=== PATIENT | female | born 1940 | race Caucasian/White ===

== ENCOUNTER 2025-06-26 09:28 | Inpatient (IN) | payer MEDICARE, SELFPAY ==
--- NOTE | ~2025-06-26 | NM_ITS ---
CLINICAL HISTORY: Pleuritic chest pain post-op --- Additional Notes or Special Instructions: Tachy, no hypoxia NUCLEAR MEDICINE LUNG PERFUSION IMAGING Comparison: CR/SR - XR CHEST 1 VIEW - 06/28/25 10:06 EDT Findings: Perfusion: 2.7mCi Tc 99m MAA Perfusion only imaging was performed. Heterogeneous distribution of isotope in both lungs with no segmental perfusion defect. Review of the above-mentioned chest radiograph demonstrates no significant pleural or pulmonary parenchymal abnormality. Impression: 1. No perfusion-chest radiographic mismatch to suggest possible pulmonary embolism. This document has been electronically signed by: Elvia Mcginnis DO on 06/28/2025 18:41:03
--- NOTE | ~2025-06-26 | CT_ITS ---
EXAMINATION: CT CERVICAL SPINE WITHOUT IV CONTRAST HISTORY: fall, collared. TECHNIQUE: Helical CT of the cervical spine was performed per standard departmental protocol. Coronal and sagittal reformatted images were also evaluated. One or more of the following techniques was used for dose reduction: Automated exposure control, adjustment of the mA and/or kV according to patient size, use of iterative reconstruction technique. DLP: 234 mGy-cm COMPARISON: There are no prior studies available for comparison. FINDINGS: CERVICAL SPINE: The bones are osteopenic. The vertebral bodies maintain normal height and alignment without evidence of fracture or subluxation. There is diffuse moderate degenerative disc disease with disc space narrowing and osteophyte formation. Evaluation for disc pathology is limited by lack of intrathecal contrast material, however. BRAIN: The visualized portion of the brain is unremarkable. SINUSES: There is fluid in the right sphenoid sinus. The visualized mastoid air cells and middle ear cavities are unremarkable. LUNG APICES: There is biapical pleural and parenchymal scarring. SOFT TISSUES: There is calcification of the internal carotid arteries. CT/CT cervical spine wo IV con IMPRESSION: No evidence of fracture or malalignment of the cervical spine. Degenerative changes as described. Electronically signed by: Jaime Worrell MD 06/26/2025 10:48 AM EDT
--- NOTE | ~2025-06-26 | XR_ITS ---
EXAMINATION: XR CHEST CLINICAL INFORMATION: Pleuritic chest pain with deep breathing COMPARISON: 06/26/2025. TECHNIQUE: Frontal view of the chest was obtained. FINDINGS: Mild cardiac enlargement suspected. Retrocardiac hiatus hernia present, moderate sized. Mediastinal and hilar contours appear normal. Aortic mural calcification. The lungs are clear bilaterally. Minimal scarring in the left upper lung distribution. No pneumothorax or effusion. No focal osseous or soft tissue abnormality. There is severe left convex thoracolumbar scoliosis with associated spondylosis. Degenerative changes in both shoulder joints. XR/XR chest 1V IMPRESSION: No active pulmonary disease. No interval change from 06/26/2025. Electronically signed by: Landry Saini MD 06/28/2025 10:29 AM EDT
--- NOTE | ~2025-06-26 | XR_ITS ---
EXAMINATION: XR CHEST CLINICAL INFORMATION: Fall COMPARISON: None available. TECHNIQUE: Frontal view of the chest was obtained. FINDINGS: Pulmonary reticular pattern. No gross consolidation, pleural effusion or pneumothorax. Bilateral apical lung scarring. No hyperinflation. Cardiomediastinal silhouette appears mildly prominent. Calcified plaque thoracic aorta with tortuosity. S-shaped curvature of the thoracolumbar spine. Osteopenia versus osteoporosis. Old traumatic deformity right clavicle. Degenerative changes in both shoulders. XR/XR chest 1V IMPRESSION: Chronic interstitial lung disease with questionable mild interstitial lung edema. Scoliosis, thoracolumbar spine. Osteopenia versus osteoporosis. Electronically signed by: Jose Taveras MD 06/26/2025 10:40 AM EDT
--- NOTE | ~2025-06-26 | FL_ITS ---
EXAMINATION: FL GUIDANCE ONLY HISTORY: fracture left hip COMPARISON: Correlation is made with plain films of the left hip dated 06/26/2025. TECHNIQUE: Fluoroscopy time: 0.6 minutes. Cumulative Dose: 6.81 mGy. DAP: 0.118 mGym2 Images: 4. FINDINGS: Fluoroscopic spot films of the left hip demonstrate internal fixation of the previously seen intertrochanteric fracture with a compression screw and intramedullary [place]. FL/FL guidance in OR IMPRESSION: Fluoroscopy during procedure. Please see procedure report for additional information. Electronically signed by: Jaime Worrell MD 06/28/2025 06:55 AM EDT
--- NOTE | ~2025-06-26 | XR_ITS ---
EXAMINATION: XR HIP, LEFT CLINICAL INFORMATION: fall, pain, external rotation COMPARISON: None available. TECHNIQUE: AP and cross lateral view of the left hip. FINDINGS: Comminuted cortical disruption in the inspiratory region of the left femur. The left femoral head is well-seated in the left acetabulum. Probable old traumatic deformities in the inferior pubic rami, bilaterally. Mild degenerative changes in the right coxofemoral joint. Osteopenia versus osteoporosis. Spondylosis, L4-5 and L5-S1. Vascular calcifications. XR/XR hip LT w PEL1V IMPRESSION: Acute comminuted intratrochanteric fracture, left femur. Electronically signed by: Jose Taveras MD 06/26/2025 10:41 AM EDT
--- NOTE | ~2025-06-26 | CT_ITS ---
EXAMINATION: CT HEAD WITHOUT IV CONTRAST HISTORY: fall, collared. TECHNIQUE: Unenhanced helical CT of the head was performed per standard departmental protocol. Coronal and sagittal reformats of the head were also evaluated. One or more of the following techniques was used for dose reduction: Automated exposure control, adjustment of the mA and/or kV according to patient size, use of iterative reconstruction technique. DLP: 624 mGy-cm COMPARISON: There are no prior studies available for comparison. FINDINGS: BRAIN: There is diffuse prominence of the ventricular system and cortical sulci, consistent with atrophy. Periventricular and subcortical white matter hypodensities are noted which are nonspecific, but often seen in the setting of small vessel ischemic disease. 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 There is no mass effect or midline shift. No intra- or extra-axial fluid collections are identified. SINUSES: There is fluid in the right sphenoid sinus. The mastoid air cells and middle ear cavities are well pneumatized. ORBITS: The visualized orbits are unremarkable. BONES/SOFT TISSUES: The extracranial soft tissues are unremarkable. The calvarium is intact. No suspicious lytic or sclerotic lesions. CT/CT head/brain wo IV con IMPRESSION: No evidence of intracranial hemorrhage or skull fracture. Electronically signed by: Jaime Worrell MD 06/26/2025 10:44 AM EDT
--- NOTE | 2025-06-26 09:34 | ED_ITS ---
HPI - General Adult General Chief complaint: Fall Stated complaint: FALL @HOME,-HS,-LOC,LLE PAIN,-THINNERS PER EMS Time Seen by Provider: 06/26/25 09:33 Source: patient, EMS, RN notes reviewed and old records reviewed Mode of arrival: EMS Limitations: no limitations History of Present Illness ED Provider: Alfredito HPI narrative: Patient is an 84-year-old female with history of HTN on metoprolol presenting to the emergency department with complaint of left hip pain after a fall at home. Patient states that her leg became caught in a chair leg causing her to fall onto her left side. Patient denies head strike or loss of consciousness. She denies feeling dizzy or lightheaded prior to fall. EMS placed patient in a c- collar prior to arrival and notes that left leg was externally rotated prior to placing a pillow under her left leg. She is not anticoagulated. She denies headache, vision changes, neck or back pain, chest pain or dyspnea. MD complaint: hip pain Related Data Allergies Allergy/AdvReac Type Severity Reaction Status Date / Time Iodinated Contrast Media (IV Allergy Unknown ANAPHYLAXIS Verified 06/26/25 09:39 CONTRAST) Sulfa (Sulfonamide Allergy Unknown RASH Verified 06/26/25 09:39 Antibiotics) (SULFA (SULFONAMIDE ANTIBIOTICS)) Review of Systems 2 Review of Systems: As per HPI Yes all other systems are reviewed and are negative Constitutional: Constitutional: Reports as per HPI PENDING SALE TO [facility] Social History Social History Advance Directives: Yes Advance Directives Information Provided: Yes Advance Directives on File: No Physical Exam ED Vital Signs: Vital Signs - 24 hr 06/26/25 09:35 06/26/25 09:50 06/26/25 10:05 Temperature 97.9 F Pulse Rate 81 79 79 Respiratory Rate 18 15 15 Blood Pressure 152/70 H 131/63 141/64 H Pulse Oximetry 97 96 96 Oxygen Delivery Method Room Air Room Air Room Air 06/26/25 10:06 Temperature Pulse Rate Respiratory Rate 18 Blood Pressure Pulse Oximetry Oxygen Delivery Method BMI result Body Mass Index 21.5 Vital signs have been reviewed and appear to be correct. Blood pressure normal. Heart rate normal. Respiratory rate normal. Temperature normal. Oxygen saturation normal. Const General: cooperative, healthy appearing and no acute distress Orientation/consciousness: oriented to person, oriented to place, oriented to time and patient oriented x3 Limitations: no limitations HENMT Head: Yes normocephalic and Yes atraumatic Ears: external ears normal General nose exam: Normal external nose present Face and sinus: Yes face symmetric Mouth: oropharynx normal and moist mucous membranes Throat: Yes uvula midline Eyes Pupils: Equal, round and reactive pupils present Neck Neck: Yes normal visual inspection and Yes supple Resp Effort & Inspection: normal respiratory effort and able to speak in complete sentences Auscultation: clear to auscultation bilaterally Cardio Rate: regular rate Rhythm: regular rhythm Heart sounds: S1 normal heart sound present and S2 normal heart sound present GI Palpation (GI): Soft to palpation and nontender Auscultation: normoactive bowel sounds General: Yes no CVA tenderness Back/Spine/Pelvis Back: no CVA tenderness Cervical Spine: collar present Thoracic/Lumbar Spine: No thoracic spinal tenderness and No lumbar spinal tenderness Pelvis: pain with anterior-posterior compression and pain with lateral compression Skin General skin exam: elasticity normal and turgor normal Neuro General: oriented to person, oriented to place, oriented to time, patient oriented x3, moves all extremities, no focal motor deficits and CN's II-XI intact bilaterally Cranial nerves: Yes Equal, round and reactive pupils present Cognition (Neuro): normal cognition Extrem General: Yes full ROM, Yes no pedal edema and Yes no calf tenderness Left lower extremity: hip/thigh Details: tenderness Location: of the hip Location: laterally and foot Details: vascular exam Details: dorsalis pedis pulse present, posterior tibial pulse present and normal capillary refill Psych Mental Status: mental status grossly normal Affect: normal affect Thought process: Normal thought process present Medications Administered Discontinued Medications Generic Name Dose Route Start Last Admin Trade Name Carolyn PRN Reason Stop Dose Admin Hydromorphone HCl 0.5 mg 06/26/25 09:36 06/26/25 10:06 Hydromorphone Hcl 0.5 Mg/0.5 Ml Syringe IVPUSH 06/26/25 09:37 0.5 mg ONCE ONE Administration Protocol Medical Decision Making Medical Decision Making [facility] Narrative: Patient is an 84-year-old female presenting to the emergency department with complaint of left hip pain after a fall at home. On exam patient is awake, A+Ox3, VS WNL, afebrile, normal neurological exam without focal deficits, physical exam findings as above. Given reported symptoms and physical exam findings, initial differential includes but is not limited to left hip contusion versus fracture, ICH, skull or cervical vertebral fracture or subluxation. Labs unremarkable. CT head and c-spine are without evidence of ICH, skull or cervical vertebral fracture or subluxation. X-ray left hip notable for intertrochanteric fracture. Chest x-ray notable for chronic interstitial lung disease. My interpretation is in agreement with the radiologist's interpretation. Patient reports decreased pain after IV dilaudid. Case discussed with dion Agee who recommends admission to medicine. Admission to medicine accepted by Anupam Fitzgerald NP. Differential Diagnosis Differential Diagnoses: The differential diagnosis associated with the presentation includes as per [facility] Admission/Observation Consideration of admission/observation: Escalation of care including admission/observation considered Consult Healthcare Provider Management of the patient was discussed with: Blockmason (dion Agee) Lab Data [facility] Lab Attestation statement: I reviewed the patient's lab results. As per [facility] 06/26/25 10:04 06/26/25 10:04 Labs: Lab Results 06/26/25 Range/Units 10:04 WBC 5.6 (4.8-10.8) X10*3/uL RBC 4.73 (4.20-5.50) X10*6/uL Hgb 13.1 (12.0-16.0) g/dl Hct 41.3 (37.0-47.0) % MCV 87.3 (80.0-98.0) fL MCH 27.7 (27.0-33.0) pg MCHC 31.7 (31.0-35.0) g/dl RDW 15.0 (11.0-16.0) % Plt Count 314 (160-400) X10*3/uL MPV 9.6 (9.4-12.3) fL Immature Gran % (Auto) 0.4 (0.0-0.4) % Neut % (Auto) 64.5 (45-73) % Lymph % (Auto) 22.5 (20-40) % [place] % (Auto) 9.8 (2-11) % Eos % (Auto) 2.1 (0-4) % Baso % (Auto) 0.7 (0-2) % Lymph # (Auto) 1.3 (1.2-4.9) X10*3/uL [place] # (Auto) 0.6 (0.1-1.2) X10*3/uL Eos # (Auto) 0.1 (0.0-0.4) X10*3/uL Baso # (Auto) 0.0 (0.0-0.2) X10*3/uL Abs Immat Gran (auto) 0.02 (0.00-0.03) X10*3/uL Absolute Neuts (auto) 3.6 (2.0-8.3) x10*3/uL Absolute Nucleated RBC 0.000 (0.0-0.012) X10*3/uL Nucleated RBC % (auto) 0.0 (0.0-0.2) /100WBC Sodium 141 (135-145) mmol/L Potassium 3.4 (3.3-5.1) mmol/L Chloride 104 (96-108) mmol/L Carbon Dioxide 25 (22-29) mmol/L Anion Gap 15 (12-20) BUN 13 (9-16) mg/dL Creatinine 0.69 (0.5-1.4) mg/dL Estim Creat Clear Calc 39.9 Estimated GFR > 60 Random Glucose 150 H (60-115) mg/dL Calcium 8.5 (8.4-10.2) mg/dL Total Bilirubin 0.6 (0.0-1.0) mg/dL AST 30 (5-31) U/L ALT 20 (0-31) U/L Alkaline Phosphatase 90 (39-117) U/L Troponin I High Sens 3.1 (<3.5-17.0) ng/L Total Protein 6.9 (6.5-8.0) g/dL Albumin 3.9 (3.5-5.0) g/dL Independent Interpretation I performed an independent interpretation of an: Plain X-Ray and CT Scan Interpretation: CT head and c-spine are without evidence of ICH, skull or cervical vertebral fracture or subluxation. X-ray left hip notable for intertrochanteric fracture. Chest x-ray notable for chronic interstitial lung disease. Radiology Impression Discussion of test interpretation with radiology: I have reviewed the radiologist's reading. Radiologist Impression: XR/XR hip LT w PEL1V IMPRESSION: Acute comminuted intratrochanteric fracture, left femur. CT/CT cervical spine wo IV con IMPRESSION: No evidence of fracture or malalignment of the cervical spine. Degenerative changes as described. CT/CT head/brain wo IV con IMPRESSION: No evidence of intracranial hemorrhage or skull fracture. XR/XR chest 1V IMPRESSION: Chronic interstitial lung disease with questionable mild interstitial lung edema. Scoliosis, thoracolumbar spine. Osteopenia versus osteoporosis. External Record Review External record reviewed: Inpatient record, Office record and Outpatient record Critical Care Time Critical Care Time Critical Care Time: Yes Total Critical Care Time: 33 Attestation: I have personally provided critical care time exclusive of time spent on separately billable procedures. Time includes review of lab data, radiology results, discussion with consultants, and monitoring for potential decompensation. Intervention performed as documented. Discharge Plan Discharge Patient Disposition: Admitted As Inpatient Print Language: Maltese
[2025-06-26 09:35] VITALS: BP 152/70; PULSE 81; RESP 18; TEMP 36.6; O2SAT 97; BMI 21.5
--- NOTE | 2025-06-26 09:46 | ECG_ITS ---
Test Reason : fall Blood Pressure : */* mmHG Vent. Rate : 71 BPM Atrial Rate : 71 BPM P-R Int : 188 ms QRS Dur : 68 ms QT Int : 398 ms P-R-T Axes : 53 -15 38 degrees QTcB Int : 432 ms Normal sinus rhythm Septal infarct , age undetermined Abnormal ECG When compared with ECG of 06-Jan-2003 10:28, Septal infarct is now Present Referred By: Monae Glaser Electronically Signed By: RICHY MALIK
[2025-06-26 09:50] VITALS: BP 131/63; PULSE 79; RESP 15; O2SAT 96
[2025-06-26 10:05] VITALS: BP 141/64; PULSE 79; RESP 15; O2SAT 96
[2025-06-26 10:06] VITALS: RESP 18
--- NOTE | 2025-06-26 10:16 | PC.NURSE ---
20g IV access established to left AC. Labs drawn and sent for analysis. C-spine collar in place. Awaiting CT scan & Xrays. ?Left hip fracture, imaging pending. Visitor (son) at bedside. Care ongoing by this RN.
[2025-06-26 10:17] LABS: MANUAL DIFF FLAG NO
[2025-06-26 10:22] LABS: Hematocrit 41.3 % (37.0-47.0); Hemoglobin 13.1 g/dl (12.0-16.0); Imm Gran Abs Auto 0.02 X10*3/uL (0.00-0.03); Imm Gran Pct Auto 0.4 % (0.0-0.4); Lymphocytes Absolute Auto 1.3 X10*3/uL (1.2-4.9); Mean Corpuscular HGB Conc 31.7 g/dl (31.0-35.0); Mean Corpuscular Hemoglobin 27.7 pg (27.0-33.0); Mean Corpuscular Volume 87.3 fL (80.0-98.0); NRBC Abs Auto 0.000 X10*3/uL (0.0-0.012); NRBC Pct Auto 0.0 /100WBC (0.0-0.2); Platelet Count 314 X10*3/uL (160-400); Red Blood Count 4.73 X10*6/uL (4.20-5.50); White Blood Count 5.6 X10*3/uL (4.8-10.8)
[2025-06-26 10:41] LABS: Alanine Aminotransferase 20 U/L (0-31); Albumin Level 3.9 g/dL (3.5-5.0); Alkaline Phosphatase 90 U/L (39-117); Anion Gap 15 (12-20); Aspartate Amino Transferase 30 U/L (5-31); Blood Urea Nitrogen 13 mg/dL (9-16); Calcium 8.5 mg/dL (8.4-10.2); Carbon Dioxide 25 mmol/L (22-29); Chloride 104 mmol/L (96-108); Creatinine Clr Calc Pharmacy 39.9; Estimated Glomerular Filt Rate > 60; Potassium 3.4 mmol/L (3.3-5.1); Sodium 141 mmol/L (135-145); Total Protein 6.9 g/dL (6.5-8.0)
[2025-06-26 10:59] LABS: Troponin-I High Sensitivity 3.1 ng/L (<3.5-17.0)
--- NOTE | 2025-06-26 11:21 | PC.NURSE ---
Purewick in place. Patient reports that she occasionally has to catheterize herself for urine due to multiple back injuries, procedures, and interstitial cystitis hx. States it's rare though, just need to do that once in a while . Care ongoing by this RN. DORY Glaser aware.
--- NOTE | 2025-06-26 12:57 | PM.CNOR ---
History of Present Illness HPI Consult date: 06/26/25 Chief complaint: Left Hip Fracture Narrative: Patient is an 84-year-old female with history of HTN on metoprolol presenting to the emergency department with complaint of left hip pain after a fall at home. Patient states that her leg became caught in a chair leg causing her to fall onto her left side. Patient denies head strike or loss of consciousness. She denies feeling dizzy or lightheaded prior to fall. EMS noted that left leg was externally rotated prior to placing a pillow under her left leg. She is not anticoagulated. She denies headache, vision changes, neck or back pain, chest pain or dyspnea. Review of Systems Review of Systems: Yes all other systems are reviewed and are negative [facility] Social History Social History Advance Directives: Yes Advance Directives Information Provided: Yes Advance Directives on File: No Meds Allergies Allergy/AdvReac Type Severity Reaction Status Date / Time Iodinated Contrast Media (IV Allergy Unknown ANAPHYLAXIS Verified 06/26/25 09:39 CONTRAST) Sulfa (Sulfonamide Allergy Unknown RASH Verified 06/26/25 09:39 Antibiotics) (SULFA (SULFONAMIDE ANTIBIOTICS)) Home Medications ?Medication ?Instructions ?Recorded ?Confirmed ?Last Taken ?Type amlodipine 5 mg tablet 5 mg PO DAILY 06/26/25 06/26/25 06/26/25 History hydromorphone 4 mg tablet 4 mg PO Q4H PRN severe pain 06/26/25 06/26/25 Unknown History pantoprazole 40 mg tablet,delayed 40 mg PO QAM 06/26/25 06/26/25 06/26/25 History release Physical Exam Vital Signs: Vital Signs: Last Vital Signs Temp 97.9 F 06/26/25 09:35 Pulse 79 06/26/25 10:05 Resp 18 06/26/25 10:06 BP 141/64 H 06/26/25 10:05 Pulse Ox 96 06/26/25 10:05 O2 Del Method Room Air 06/26/25 10:05 BMI result Body Mass Index 21.5 Const: General: cooperative, healthy appearing and no acute distress Resp: Effort & Inspection: normal respiratory effort and able to speak in complete sentences Extrem: Other: LLE is shortened and externally rotated Able to dorsi/plantar flex Sensation reportedly intact Pedal pulse intact Psych: Appearance: grossly normal Mental Status: mental status grossly normal Attitude: cooperative Results Labs 06/26/25 10:04 06/26/25 10:04 Labs: Abnormal lab results 06/26/25 Range/Units 10:04 Random Glucose 150 H (60-115) mg/dL H & H 06/26/25 Range/Units 10:04 Hgb 13.1 (12.0-16.0) g/dl Hct 41.3 (37.0-47.0) % All other labs normal. Assessment and Plan (1) Closed intertrochanteric fracture of left femur: Status: Acute I discussed the case with Dr. Branch and explained the extent of the injury to the patient and options available which include surgical vs conservative intervention. I explained the procedure in detail along with the length of recovery and rehab course. I explained the risk, benefits and alternatives. Risk including, but not limited to infection, blood clots, bleeding, non union or malunion and nerve/tissue damage to surrounding areas. I answered all their questions but the patient would like to speak with her PCP for additional recommendations. I explained that nonoperative intervention would require being bed bound for a minimum of 3 months and this can lead to other conditions such as blood clots, PE, bed sores, PNA and additional conditions leading to decline. The patient was admitted to the medicine service with orthopedic consult. She lives with family and occasionally uses a walker to ambulate. She reports a recent history of rib fx, vertebral fx, and pelvic fractures and sounds like she may fall frequently and also reports a hx of osteoporosis. Procedures Date of Service Date of Service: 06/26/25
--- NOTE | 2025-06-26 13:19 | HO.ANESPROP2 ---
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 Beata Mcfarlane [facility] Active Problems Active Problems: All Active Problems (Updated 06/26/25 @ 11:44 by Monae Glaser NP) Closed intertrochanteric fracture of left femur (Acute) Past Medical History Medical History Rib fractures History of cataract Prediabetes Right sided weakness CVA (cerebral vascular accident) Chronic constipation Fall Palpitation Hx of spinal stenosis History of osteoarthritis GERD (gastroesophageal reflux disease) HTN (hypertension) Family History Family history of problems with anesthesia: No Surgical History Surgical History Hx of hysterectomy Hx of cataract extraction History of Problems with Anesthesia: No Social History Social History Household Members: None Household Members Other:: son lives next day Housing: Apartment Do you presently have visiting nurse or other home services: No Patient Tobacco Use Status: Never used Tobacco Second Hand Smoke Exposure: No Advance Directives Date on File: 06/26/25 service: No Meds Allergies Allergy/AdvReac Type Severity Reaction Status Date / Time Iodinated Contrast Media (IV Allergy Unknown ANAPHYLAXIS Verified 06/26/25 09:39 CONTRAST) Sulfa (Sulfonamide Allergy Unknown RASH Verified 06/26/25 09:39 Antibiotics) (SULFA (SULFONAMIDE ANTIBIOTICS)) Active Medications: Current Medications Cefazolin Sodium/Dextrose (Ancef) 2 gm in 50 mls @ 100 mls/hr IV PREOP ONE Stop: 06/26/25 13:32 Home Medications ?Medication ?Instructions ?Recorded ?Confirmed ?Last Taken ?Type amlodipine 5 mg tablet 5 mg PO DAILY 06/26/25 06/26/25 06/26/25 History cholecalciferol (vitamin D3) 25 25 mcg PO DAILY 06/26/25 06/26/25 06/26/25 History mcg (1,000 unit) capsule (Vitamin D3) ferrous sulfate 325 mg (65 mg 325 mg PO DAILY 06/26/25 06/26/25 06/26/25 History iron) tablet,delayed release metoprolol succinate 25 mg 25 mg PO DAILY 06/26/25 06/26/25 06/26/25 History tablet,extended release 24 hr pantoprazole 40 mg tablet,delayed 40 mg PO DAILY@0630 06/26/25 06/26/25 06/26/25 History release Exam Height,Weight and Vital Signs: Height 4 ft 10 in Weight 46.6 kg Last Vital Signs Temp 97.9 F 06/26/25 09:35 Pulse 79 06/26/25 10:05 Resp 18 06/26/25 10:06 BP 141/64 H 06/26/25 10:05 Pulse Ox 96 06/26/25 10:05 O2 Del Method Room Air 06/26/25 10:05 Pertinent Lab Results Pertinent Lab Results: Laboratory Tests 06/26/25 10:04 WBC 5.6 RBC 4.73 Hgb 13.1 Hct 41.3 MCV 87.3 MCH 27.7 MCHC 31.7 RDW 15.0 Plt Count 314 MPV 9.6 Immature Gran % (Auto) 0.4 Neut % (Auto) 64.5 Lymph % (Auto) 22.5 [place] % (Auto) 9.8 Eos % (Auto) 2.1 Baso % (Auto) 0.7 Lymph # (Auto) 1.3 [place] # (Auto) 0.6 Eos # (Auto) 0.1 Baso # (Auto) 0.0 Abs Immat Gran (auto) 0.02 Absolute Neuts (auto) 3.6 Absolute Nucleated RBC 0.000 Nucleated RBC % (auto) 0.0 Sodium 141 Potassium 3.4 Chloride 104 Carbon Dioxide 25 Anion Gap 15 BUN 13 Creatinine 0.69 Estim Creat Clear Calc 39.9 Estimated GFR > 60 Random Glucose 150 H Calcium 8.5 Total Bilirubin 0.6 AST 30 ALT 20 Alkaline Phosphatase 90 Troponin I High Sens 3.1 Total Protein 6.9 Albumin 3.9 Narrative Narrative: EKG 06/26/25 Vent. Rate : 71 BPM Atrial Rate : 71 BPM P-R Int : 188 ms QRS Dur : 68 ms QT Int : 398 ms P-R-T Axes : 53 -15 38 degrees QTcB Int : 432 ms Normal sinus rhythm Septal infarct , age undetermined Abnormal ECG When compared with ECG of 06-Jan-2003 10:28, Septal infarct is now Present Airway Mallampati Class: II TM Dist: >3cm Neck ROM: Full Denture: Upper Heart: RRR Lungs: CTAB Assessment and Plan Final Anesthetic Review Family History of Problems with Anesthesia: No History of Problems with Anesthesia: No Documented by User: Jose Luis Jovel MD 06/28/25 07:16 [facility] Past Medical History Medical History Rib fractures History of cataract Prediabetes Right sided weakness CVA (cerebral vascular accident) Chronic constipation Fall Palpitation Hx of spinal stenosis History of osteoarthritis GERD (gastroesophageal reflux disease) HTN (hypertension) Functional capacity: independent ambulation Surgical History Surgical History Hx of hysterectomy Hx of cataract extraction Social History Social History Household Members: None Household Members Other:: son lives next day Housing: Apartment Do you presently have visiting nurse or other home services: No Patient Tobacco Use Status: Never used Tobacco Second Hand Smoke Exposure: No Advance Directives Date on File: 06/26/25 service: No Meds Allergies Allergy/AdvReac Type Severity Reaction Status Date / Time Iodinated Contrast Media (IV Allergy Unknown ANAPHYLAXIS Verified 06/26/25 09:39 CONTRAST) Sulfa (Sulfonamide Allergy Unknown RASH Verified 06/26/25 09:39 Antibiotics) (SULFA (SULFONAMIDE ANTIBIOTICS)) Home Medications ?Medication ?Instructions ?Recorded ?Confirmed ?Last Taken ?Type amlodipine 5 mg tablet 5 mg PO DAILY 06/26/25 06/26/25 06/26/25 History cholecalciferol (vitamin D3) 25 25 mcg PO DAILY 06/26/25 06/26/25 06/26/25 History mcg (1,000 unit) capsule (Vitamin D3) ferrous sulfate 325 mg (65 mg 325 mg PO DAILY 06/26/25 06/26/25 06/26/25 History iron) tablet,delayed release metoprolol succinate 25 mg 25 mg PO DAILY 06/26/25 06/26/25 06/26/25 History tablet,extended release 24 hr pantoprazole 40 mg tablet,delayed 40 mg PO DAILY@0630 06/26/25 06/26/25 06/26/25 History release Documented by User: Tammy Claudio MD 06/27/25 13:14 [facility] Past Medical History Medical History Rib fractures History of cataract Prediabetes Right sided weakness CVA (cerebral vascular accident) Chronic constipation Fall Palpitation Hx of spinal stenosis History of osteoarthritis GERD (gastroesophageal reflux disease) HTN (hypertension) Surgical History Surgical History Hx of hysterectomy Hx of cataract extraction Social History Social History Household Members: None Household Members Other:: son lives next day Housing: Apartment Do you presently have visiting nurse or other home services: No Patient Tobacco Use Status: Never used Tobacco Second Hand Smoke Exposure: No Advance Directives Date on File: 06/26/25 service: No Meds Allergies Allergy/AdvReac Type Severity Reaction Status Date / Time Iodinated Contrast Media (IV Allergy Unknown ANAPHYLAXIS Verified 06/26/25 09:39 CONTRAST) Sulfa (Sulfonamide Allergy Unknown RASH Verified 06/26/25 09:39 Antibiotics) (SULFA (SULFONAMIDE ANTIBIOTICS)) Home Medications ?Medication ?Instructions ?Recorded ?Confirmed ?Last Taken ?Type amlodipine 5 mg tablet 5 mg PO DAILY 06/26/25 06/26/25 06/26/25 History cholecalciferol (vitamin D3) 25 25 mcg PO DAILY 06/26/25 06/26/25 06/26/25 History mcg (1,000 unit) capsule (Vitamin D3) ferrous sulfate 325 mg (65 mg 325 mg PO DAILY 06/26/25 06/26/25 06/26/25 History iron) tablet,delayed release metoprolol succinate 25 mg 25 mg PO DAILY 06/26/25 06/26/25 06/26/25 History tablet,extended release 24 hr pantoprazole 40 mg tablet,delayed 40 mg PO DAILY@0630 06/26/25 06/26/25 06/26/25 History release Assessment and Plan Assessment Anesthesia Assessment: Anesthesia Plan Discussed and Chart Reviewed Final Anesthetic Review NPO: Yes ASA Class: III Final Preanesthetic Review: No Changes in Pt Med Stat, Meds/Allgs Chart Reviewed, Consent Obtained/Reviewed and Anes Risks/Benef Reviewed Patient Risk: Intermediate Procedure Risk: Intermediate Anesthetic Plan Anesthetic Plan: GA and Agree w/ Assess. and Plan Disposition: Standard PACU
--- NOTE | 2025-06-26 13:40 | PHA.MEDREC ---
Addendum entered by Radha Berg RPh 06/26/25 14:09: Reviewed by [facility] Original Note: Pharmacy Consult ? Medication Reconciliation Pharmacy has reviewed the medication reconciliation done by nursing. Spoke to patient to confirm med list. Patient confirmed Metoprolol Succ 25 mg daily, even though claims has 25 mg BID. corrected med list. Patient had all her morning medications today.
--- NOTE | 2025-06-26 14:04 | PC.NURSE ---
Regular diet order in place. NPO after midnight 06/27/2025. Plan for surgical repair tomorrow, 06/27/2025 per orthopedic surgical team. Pending consent for surgery with provider. Ancef ordered, but to be administered prior to surgery. Please hold medication at this time.
--- NOTE | 2025-06-26 14:37 | P.HPHOSP_ITS ---
History of Present Illness Date of Service: 06/26/25 Chief Complaint: Left hip pain Pt is an 84-year-old female with a PMH significant for?HTN, osteoporosis, hx of spinal fractures x4, and GERD who presents to the ED with?left hip pain after mechanical fall at home. Pt reports this morning she was getting up from her kitchen table when she tripped on the chair and fell on her left side. Denies loss of consciousness or head strike. Pt immediately experienced left hip and thigh pain down to her knee and was unable to stand. No lightheadedness or dizziness. Denies chest pain/pressure, or palpitations. No fever or chills. In the ED pt was mildly hypertensive at 151/72, otherwise vitals stable and WNL. Labs were grossly unremarkable and around baseline for pt. No leukocytosis. Stable H&H. No significant electrolyte abnormalities. Renal and hepatic function baseline. Troponin WNL at 3.1. Hip/pelvis x-ray showed acute comminuted intertrochanteric fracture of left femur. CXR showed chronic interstitial lung disease with questionable mild interstitial lung edema. CTA of head and C-spine negative for acute abnormalities. EKG demonstrated normal sinus rhythm without evidence of significant ST elevations or depressions. ED clinician contacted Orthopedics who plan for surgical intervention tomorrow morning. Pt was treated in the ED with hydromorphone. Pt is admitted to the hospital for acute left hip fracture requiring surgical intervention. Review of Systems 2 Review of Systems: Negative except for that which is stated in the HPI. [facility] Social History Household Members: None Household Members Other:: son lives next day Housing: Apartment Do you presently have visiting nurse or other home services: No Patient Tobacco Use Status: Never used Tobacco Second Hand Smoke Exposure: No Advance Directives Date on File: 06/26/25 Meds Allergies Allergy/AdvReac Type Severity Reaction Status Date / Time Iodinated Contrast Media (IV Allergy Unknown ANAPHYLAXIS Verified 06/26/25 09:39 CONTRAST) Sulfa (Sulfonamide Allergy Unknown RASH Verified 06/26/25 09:39 Antibiotics) (SULFA (SULFONAMIDE ANTIBIOTICS)) Active Medications: Current Medications Morphine Sulfate (Morphine Sulfate 2 Mg/Ml Cartridge) 2 mg IVPUSH Q4H PRN; Protocol PRN Reason: Pain, Severe (Pain Scale 7-10) Home Medications ?Medication ?Instructions ?Recorded ?Confirmed ?Last Taken ?Type amlodipine 5 mg tablet 5 mg PO DAILY 06/26/2506/2606/26/25 History cholecalciferol (vitamin D3) 25 25 mcg PO DAILY 06/26/25 06/26/25 History mcg (1,000 unit) capsule (Vitamin D3) ferrous sulfate 325 mg (65 mg 325 mg PO DAILY 06/26/25 06/26/25 06/26/25 History iron) tablet,delayed release metoprolol succinate 25 mg 25 mg PO DAILY 06/26/2506/26/25 History tablet,extended release 24 hr pantoprazole 40 mg tablet,delayed 40 mg PO DAILY@0630 06/26/25 06/26/25 06/26/25 History release Physical Exam 2 Vital Signs and Narrative: Vital Signs: Last Vital Signs Temp 97.9 F 06/26/25 09:35 Pulse 79 06/26/25 10:05 Resp 18 06/26/25 10:06 BP 141/64 H 06/26/25 10:05 Pulse Ox 96 06/26/25 10:05 O2 Del Method Room Air 06/26/25 10:05 BMI result Body Mass Index 21.5 General: AOx3, no acute distress Resp: CTA bilaterally CVS: S1, S2, RRR GI: +BS, NT, no distention Skin: Warm, dry Neuro: Cranial nerves II-XII grossly intact bilaterally. Motor grossly intact bilaterally Extremities: No edema. Left leg shortened and externally rotated. Unable to move left hip secondary to pain. Psych: Appropriate affect Results Labs 06/26/25 10:04 06/26/25 10:04 Labs: Laboratory Results - last 24 hr 06/26/25 10:04 MCV 87.3 MCH 27.7 MCHC 31.7 RDW 15.0 Plt Count 314 MPV 9.6 Immature Gran % (Auto) 0.4 Neut % (Auto) 64.5 Lymph % (Auto) 22.5 [place] % (Auto) 9.8 Eos % (Auto) 2.1 Baso % (Auto) 0.7 Lymph # (Auto) 1.3 [place] # (Auto) 0.6 Eos # (Auto) 0.1 Baso # (Auto) 0.0 Abs Immat Gran (auto) 0.02 Absolute Neuts (auto) 3.6 Absolute Nucleated RBC 0.000 Nucleated RBC % (auto) 0.0 Anion Gap 15 Estim Creat Clear Calc 39.9 Estimated GFR > 60 Random Glucose 150 H Calcium 8.5 Total Bilirubin 0.6 AST 30 ALT 20 Alkaline Phosphatase 90 Total Protein 6.9 Albumin 3.9 Imaging Radiologist's Impressions: Impressions Cervical Spine CT 06/26/25 09:14 IMPRESSION: No evidence of fracture or malalignment of the cervical spine. Degenerative changes as described. Electronically signed by: Jaime Worrell MD 06/26/2025 10:48 AM EDT RP Hip/Pelvis X-Ray 06/26/25 09:30 IMPRESSION: Acute comminuted intratrochanteric fracture, left femur. Electronically signed by: Jose Taveras MD 06/26/2025 10:41 AM EDT RP Chest X-Ray 06/26/25 09:39 IMPRESSION: Chronic interstitial lung disease with questionable mild interstitial lung edema. Scoliosis, thoracolumbar spine. Osteopenia versus osteoporosis. Electronically signed by: Jose Taveras MD 06/26/2025 10:40 AM EDT RP Head CT 06/26/25 10:14 IMPRESSION: No evidence of intracranial hemorrhage or skull fracture. Electronically signed by: Jaime Worrell MD 06/26/2025 10:44 AM EDT RP Assessment and Plan (1) Closed intertrochanteric fracture of left femur: Status: Acute Plan Pt is an 84-year-old female with a PMH significant for?HTN, osteoporosis, hx of spinal fractures x4, and GERD who presents to the ED with?left hip pain after mechanical fall at home. Pt is admitted to the hospital for acute left hip fracture requiring surgical intervention. Left femur acute comminuted intertrochanteric fracture S/p mechanical fall at home Orthopedics consulted, plan on surgical intervention tomorrow Analgesics for pain management NPO after midnight RCRI score 0, pt is at intermediate risk for planned procedure given age and comorbidities HTN Continue amlodipine and metoprolol GERD Continue PPI Full Code Attending:?Dr. Singer DVT Prophylaxis: Pneumatic compression due to impending surgical intervention Pt will require a hospitalization of at least two nights for treatment of?left hip fracture requiring surgical intervention and orthopedics consultation. Quality Stroke Does the patient have a stroke diagnosis?: No VTE Prior VTE?: No VTE Risk Level:: Medical - moderate - high VTE Device Contraindication: N/A - Device Ordered VTE Drug Contraindication: Treatment Not Indicated
[2025-06-26 15:36] VITALS: BMI 23.2
[2025-06-26 15:41] VITALS: BP 151/72; PULSE 74; RESP 18; TEMP 36.6; O2SAT 93
[2025-06-26 18:03] LABS: Appearance Urine Clear; Glucose Urine UA Negative (Negative); PH 8.0 (5.0-9.0); Specific Gravity - Urine 1.015 (1.005-1.025)
[2025-06-26 19:38] VITALS: BP 145/64; PULSE 85; RESP 18; TEMP 36.9; O2SAT 96
[2025-06-27] VITALS (13 sets, daily range): BP systolic 108–152; BP diastolic 58–80; PULSE 76–100; RESP 10–18; TEMP 36.3–37.1; O2SAT 92–95
[2025-06-27] MEDS: 0.9 % Sodium Chloride Flush 3 ML SYRINGE IVFLUSH ×3 (08:03→19:51)
[2025-06-27] MEDS: Metoprolol Succinate ER 25 MG TAB.ER.24H PO (08:18)
--- NOTE | 2025-06-27 09:57 | MHC.CM.PN ---
IMM delivered. Patient lives in a duplex, son in the other unit in the home. Functionally independent. Has a walker and w/c that she uses PRN. PCP ?Beata Mcfarlane MD - [facility] service Reports she has an HCP naming her son, Reilly, as HCA. He will bring in a copy. DP: Awaiting surgery/PT eval, but declines STR, prefers home w/ [facility]. Has used their services in the past. Son will assist and transport. CM will continue to follow.
--- NOTE | 2025-06-27 11:48 | HO.PM.IMPN ---
Subjective Subjective Date of Service: 06/27/25 Interval History: Pain generally tolerated arrest, 10 with movement No acute events overnight Denies nausea or vomiting No chest pain/pressure Denies lightheadedness or dizziness Hip surgery scheduled for early afternoon Review of Systems Review of Systems: Yes all other systems are reviewed and are negative Physical Exam Exam: Exam: General: AOx3, no acute distress Resp: CTA bilaterally CVS: S1, S2, RRR GI: +BS, NT, no distention Skin: Warm, dry Neuro: Cranial nerves II-XII grossly intact bilaterally. Motor grossly intact bilaterally Extremities: No edema. Left leg shortened and externally rotated. Unable to move left hip secondary to pain. Psych: Appropriate affect Vital Signs: Vital Signs: Last Vital Signs Temp 98.6 F 06/27/25 07:42 Pulse 100 06/27/25 07:42 Resp 18 06/27/25 07:42 BP 131/64 06/27/25 07:42 Pulse Ox 93 06/27/25 07:42 O2 Del Method Room Air 06/27/25 07:42 BMI result Body Mass Index 23.2 Objective Data Active Medications Acetaminophen (Acetaminophen 325 Mg Tablet) 650 mg PO Q6H PRN PRN Reason: Pain, Mild 1-3,fever,headache Amlodipine Besylate (Amlodipine Besylate 5 Mg Tablet) 5 mg PO DAILY [facility]; Protocol Last Admin: 06/27/25 08:07 Dose: Not Given Documented By: CLIFFORD Non-Admin Reason: Patient Refused Calcium Carbonate (Calcium Carbonate 750 Mg Tab.Chew) 750 mg PO Q4H PRN PRN Reason: Heartburn Docusate Sodium (Docusate Sodium 100 Mg Capsule) 100 mg PO BID [facility] Last Admin: 06/27/25 08:08 Dose: Not Given Documented By: CLIFFORD Non-Admin Reason: Patient Refused Hydromorphone HCl (Hydromorphone Hcl 0.5 Mg/0.5 Ml Syringe) 0.5 mg IVPUSH Q3H PRN; Protocol PRN Reason: Pain, Severe (Pain Scale 7-10) Magnesium Hydroxide (Milk Of Magnesia 30 Ml Oral.Susp) 30 ml PO DAILY PRN PRN Reason: Constipation Melatonin (Melatonin 3 Mg Tablet) 6 mg PO BEDTIME PRN PRN Reason: Insomnia Metoprolol Succinate (Metoprolol Succinate Er 25 Mg Tab.Er.24h) 25 mg PO DAILY [facility]; Protocol Last Admin: 06/27/25 08:18 Dose: 25 mg Documented By: CLIFFORD Omeprazole (Omeprazole 20 Mg Capsule.Dr) 20 mg PO DAILY@0630 [facility] Last Admin: 06/27/25 06:04 Dose: Not Given Documented By: LEI Non-Admin Reason: NPO Oxycodone HCl (Oxycodone Hcl Immed Release 5 Mg Tablet) 5 mg PO Q4H PRN PRN Reason: Pain, Moderate(Pain Scale 4-6) Polyethylene Glycol (Polyethylene Glycol 3350 17 Gm Powd.Pack) 17 gm PO DAILY PRN PRN Reason: Constipation Sodium Chloride (0.9 % Sodium Chloride Flush 3 Ml Syringe) 3 ml IVFLUSH QSHIFT [facility] Last Admin: 06/27/25 08:03 Dose: 3 ml Documented By: CLIFFORD Vitamin D (Cholecalciferol (Vitamin D3) 25 Mcg Tablet) 25 mcg PO DAILY [facility] Last Admin: 06/27/25 08:08 Dose: Not Given Documented By: CLIFFORD Non-Admin Reason: Patient Refused Labs 06/26/25 10:04 06/26/25 10:04 Labs: Laboratory Results - last 24 hr 06/26/25 06/27/25 17:49 07:40 Urine Color Yellow Urine Appearance Clear Urine pH 8.0 Ur Specific [place] 1.015 Urine Protein Negative Urine Glucose (UA) Negative Urine Ketones 15 Urine Blood Negative Urine Nitrite Negative Ur Leukocyte Esterase Negative Blood Type A Positive Antibody Screen NEGATIVE Assessment and Plan (1) Closed intertrochanteric fracture of left femur: Status: Acute Plan Pt is an 84-year-old female with a PMH significant for?HTN, osteoporosis, hx of spinal fractures x4, and GERD who presents to the ED with?left hip pain after mechanical fall at home. Pt is admitted to the hospital for acute left hip fracture requiring surgical intervention. Left femur acute comminuted intertrochanteric fracture S/p mechanical fall at home Orthopedics consulted, plan on surgical intervention this afternoon Analgesics for pain management Continue NPO RCRI score 0, pt is at intermediate risk for planned procedure given age and comorbidities HTN Continue amlodipine and metoprolol GERD Continue PPI Full Code DVT Prophylaxis: Pneumatic compression due to impending surgical intervention; DVT prophylaxis as per Orthopedics on surgery completed Pt requires continued hospitalization due to impending surgical intervention and need for close monitoring and safe disposition home Quality Stroke Does the patient have a stroke diagnosis?: No VTE Prior VTE?: No VTE Risk Level:: Medical - moderate - high VTE Device Contraindication: N/A - Device Ordered VTE Drug Contraindication: Treatment Not Indicated
--- NOTE | 2025-06-27 12:25 | MHC.SHP ---
Pre-Procedural Eval Section A - 24 Hr Update-Section A only Date of Service: 06/27/25 The patient is an INPATIENT: Yes Changes since office visit: No Cold of Flu in the past 2 weeks, No New Medical Problems, No Changes in Medication and No Patient answered all questions The patient has been examined within 24 hours of the surgical procedure. The History & Physical has been completed within 30 days and I have reviewed it.: Yes Section B - Complete if H&P > 30 days Chief Complaint: Left Hip Fracture Allergies: Allergies Allergy/AdvReac Type Severity Reaction Status Date / Time Iodinated Contrast Media (IV Allergy Unknown ANAPHYLAXIS Verified 06/26/25 09:39 CONTRAST) Sulfa (Sulfonamide Allergy Unknown RASH Verified 06/26/25 09:39 Antibiotics) (SULFA (SULFONAMIDE ANTIBIOTICS)) Plan I have reviewed the history and physical and performed a pertinent physical examination on my patient. No changes have occurred unless specified. Time Spent With Patient Time: Total time managing care of this patient today ____ minutes.
--- NOTE | 2025-06-27 15:29 | P.BOP_ITS ---
Brief Operative Note Date of Service: 06/27/25 Pre-op diagnosis: Left hip IT fx Post-op diagnosis: same Procedure: Left hip IMN Implants: Chio [id number] 10x 175 125 deg with 85mm hip screw and 40 mm distal interlock Surgeon: Beau Branch MD Anesthesia: GETA and local Was an Business Solutions Analyst used for this Procedure?: No Estimated blood loss (mL): 100 IV fluids (mL): 500 Pathology: none sent Condition: stable Disposition: PACU
[2025-06-28] VITALS (8 sets, daily range): BP systolic 90–123; BP diastolic 50–70; PULSE 81–111; RESP 16–18; TEMP 36.6–37.1; O2SAT 91–94
[2025-06-28 06:18] LABS: Hematocrit 35.6 % (37.0-47.0); Hemoglobin 11.5 g/dl (12.0-16.0); Mean Corpuscular HGB Conc 32.3 g/dl (31.0-35.0); Mean Corpuscular Hemoglobin 28.1 pg (27.0-33.0); Mean Corpuscular Volume 87.0 fL (80.0-98.0); NRBC Abs Auto 0.000 X10*3/uL (0.0-0.012); NRBC Pct Auto 0.0 /100WBC (0.0-0.2); Platelet Count 249 X10*3/uL (160-400); Red Blood Count 4.09 X10*6/uL (4.20-5.50); White Blood Count 12.9 X10*3/uL (4.8-10.8)
[2025-06-28 06:34] LABS: Anion Gap 14 (12-20); Blood Urea Nitrogen 21 mg/dL (9-16); Calcium 8.9 mg/dL (8.4-10.2); Carbon Dioxide 24 mmol/L (22-29); Chloride 103 mmol/L (96-108); Creatinine Clr Calc Pharmacy 46.2; Estimated Glomerular Filt Rate > 60; Potassium 3.9 mmol/L (3.3-5.1); Sodium 137 mmol/L (135-145)
--- NOTE | 2025-06-28 07:42 | PM.PNORT ---
Subjective Subjective Date of Service: 06/28/25 Interval history: POD1 s/p left hip IM Nail Patient is resting in bed comfortably No overnight events Pain is managed Reports chest tightness with deep inspiration - Medicine [place] Texted to make aware Physical Exam Vital Signs: Vital Signs: Last Vital Signs Temp 98.2 F 06/28/25 03:14 Pulse 92 06/28/25 03:14 Resp 16 06/28/25 03:14 BP 123/70 06/28/25 03:14 Pulse Ox 93 06/28/25 03:14 O2 Del Method Room Air 06/28/25 03:14 BMI result Body Mass Index 23.2 Const: General: cooperative, healthy appearing and no acute distress Resp: Effort & Inspection: normal respiratory effort and able to speak in complete sentences Cardio: Rate: regular rate Peripheral pulses: Peripheral pulses 2+ throughout GI: Palpation (GI): Soft to palpation Skin: Lesions: no lesions Rashes: no rashes Extrem: Other: left hip dressing is c/d/i. Able to dorsi/plantar flex. Calf is supple and nontender. Sensation intact. Pedal pulse intact. Procedures Date of Service Date of Service: 06/28/25 Progress Note: A&P Assessment and plan (1) Closed intertrochanteric fracture of left femur: Status: Acute Plan Continue pain mgmnt Begin ASA for dvt ppx begin PT/OT for LT hip IM Nail - WBAT Dispo planning- PT, pain mgmnt, pt. c/o chest tightness with deep inspiration - [place] Text send to medicine immediately Time Spent With Patient Time: Total time managing care of this patient today ____ minutes. Quality Stroke Does the patient have a stroke diagnosis?: No VTE Prior VTE?: No VTE Risk Level:: Medical - moderate - high VTE Device Contraindication: N/A - Device Ordered VTE Drug Contraindication: Treatment Not Indicated
[2025-06-28] MEDS: Metoprolol Succinate ER 25 MG TAB.ER.24H PO (08:09)
[2025-06-28] MEDS: 0.9 % Sodium Chloride Flush 3 ML SYRINGE IVFLUSH (08:19)
--- NOTE | 2025-06-28 08:57 | HO.POSTANES ---
Post Anesthesia Evaluation Post Anesthesia Evaluation Date of Service: 06/28/25 Vital Signs: Vital Signs Temp Pulse Resp BP Pulse Ox O2 Del Method 06/28/25 08:00 98.8 F 111 H 18 107/67 93 Room Air 06/28/25 03:14 98.2 F 92 16 123/70 93 Room Air 06/27/25 23:50 97.6 F 89 16 123/64 92 Room Air Anesthesia: General Mental Status: Awake Pain Control: Satisfactory Nausea/Vomiting: None Hydration: Adequate Anesthesia-Related Issues: No Anes. Related Issues
--- NOTE | 2025-06-28 11:37 | P.PNIM_ITS ---
Subjective Subjective Date of Service: 06/28/25 Interval History: POD1 s/p left hip IM nail Pain currently well managed No acute events overnight Has some discomfort with deep inspiration No significant SOB or difficulty breathing; not on supplemental oxygen Has been using incentive spirometry Stood yesterday, not walking yet Review of Systems Review of Systems: Yes all other systems are reviewed and are negative Physical Exam 2 Exam: Exam: General: AOx3, no acute distress Resp: CTA bilaterally CVS: S1, S2, RRR GI: +BS, NT, no distention Skin: Warm, dry Neuro: Cranial nerves II-XII grossly intact bilaterally. Motor grossly intact bilaterally Extremities: No edema. Left hip with the appropriate tenderness at surgical site. Left hip with clean and dry dressing in place. Pt able to move toes. Pedal pulses 2+ bilateral Psych: Appropriate affect Vital Signs: Vital Signs: Last Vital Signs Temp 98.8 F 06/28/25 08:00 Pulse 111 H 06/28/25 08:00 Resp 18 06/28/25 08:00 BP 107/67 06/28/25 08:00 Pulse Ox 93 06/28/25 08:00 O2 Del Method Room Air 06/28/25 08:00 BMI result Body Mass Index 23.2 Objective Data Active Medications Acetaminophen (Acetaminophen 325 Mg Tablet) 650 mg PO Q6H PRN PRN Reason: Pain, Mild 1-3,fever,headache Amlodipine Besylate (Amlodipine Besylate 5 Mg Tablet) 5 mg PO DAILY [facility]; Protocol Last Admin: 06/28/25 08:14 Dose: Not Given Documented By: CLIFFORD Non-Admin Reason: help for BP 111/67 Aspirin (Aspirin 325 Mg Tablet) 325 mg PO BID [facility] Calcium Carbonate (Calcium Carbonate 750 Mg Tab.Chew) 750 mg PO Q4H PRN PRN Reason: Heartburn Docusate Sodium (Docusate Sodium 100 Mg Capsule) 100 mg PO BID [facility] Last Admin: 06/28/25 08:08 Dose: 100 mg Documented By: CLIFFORD Hydromorphone HCl (Hydromorphone Hcl 0.5 Mg/0.5 Ml Syringe) 0.5 mg IVPUSH Q3H PRN; Protocol PRN Reason: Pain, Severe (Pain Scale 7-10) Last Admin: 06/28/25 08:21 Dose: 0.5 mg Documented By: CLIFFORD Magnesium Hydroxide (Milk Of Magnesia 30 Ml Oral.Susp) 30 ml PO DAILY PRN PRN Reason: Constipation Melatonin (Melatonin 3 Mg Tablet) 6 mg PO BEDTIME PRN PRN Reason: Insomnia Metoprolol Succinate (Metoprolol Succinate Er 25 Mg Tab.Er.24h) 25 mg PO DAILY [facility]; Protocol Last Admin: 06/28/25 08:09 Dose: 25 mg Documented By: CLIFFORD Omeprazole (Omeprazole 20 Mg Capsule.Dr) 20 mg PO DAILY@0630 [facility] Last Admin: 06/28/25 06:08 Dose: Not Given Documented By: KALA Non-Admin Reason: Patient Refused Comments: Patient stated she asked her son to bring in her pantoprozole. She would prefer instead. Educated on giving meds to RN if he brings in so to be checked by pharmacy and labelled Ondansetron HCl (Ondansetron Hcl 4 Mg/2 Ml Vial) 4 mg IVPUSH Q8H PRN PRN Reason: Nausea and Vomiting Oxycodone HCl (Oxycodone Hcl Immed Release 5 Mg Tablet) 5 mg PO Q4H PRN PRN Reason: Pain, Moderate(Pain Scale 4-6) Polyethylene Glycol (Polyethylene Glycol 3350 17 Gm Powd.Pack) 17 gm PO DAILY PRN PRN Reason: Constipation Sodium Chloride (0.9 % Sodium Chloride Flush 3 Ml Syringe) 3 ml IVFLUSH QSHIFT [facility] Last Admin: 06/28/25 08:19 Dose: 3 ml Documented By: CLIFFORD Vitamin D (Cholecalciferol (Vitamin D3) 25 Mcg Tablet) 25 mcg PO DAILY [facility] Last Admin: 06/28/25 08:09 Dose: 25 mcg Documented By: CLIFFORD Labs 06/28/25 06:04 06/28/25 06:04 Labs: Laboratory Results - last 24 hr 06/28/25 06:04 MCV 87.0 MCH 28.1 MCHC 32.3 RDW 15.2 Plt Count 249 MPV 9.6 Absolute Nucleated RBC 0.000 Nucleated RBC % (auto) 0.0 Anion Gap 14 Estim Creat Clear Calc 46.2 Estimated GFR > 60 Random Glucose 119 H Calcium 8.9 Assessment and Plan (1) Closed intertrochanteric fracture of left femur: Status: Acute Plan Pt is an 84-year-old female with a PMH significant for?HTN, osteoporosis, hx of spinal fractures x4, and GERD who presents to the ED with?left hip pain after mechanical fall at home. Pt is admitted to the hospital for acute left hip fracture requiring surgical intervention. Left femur acute comminuted intertrochanteric fracture S/p mechanical fall at home POD1 s/p left hip IM nail Analgesics for pain management Orthopedics following PT for likely STR placement Pleuritic chest pain Minor, only with deep inspiration; no hypoxia CXR ordered, negative for acute cardiopulmonary process, no interval change from prior Likely secondary to intubation Continue incentive spirometry, OOB as tolerated HTN Continue amlodipine and metoprolol GERD Continue PPI Full Code DVT Prophylaxis: Pneumatic compression due to impending surgical intervention; DVT prophylaxis as per Orthopedics on surgery completed Pt requires continued hospitalization due to impending surgical intervention and need for close monitoring and safe disposition home Quality Stroke Does the patient have a stroke diagnosis?: No VTE Prior VTE?: No VTE Risk Level:: Medical - moderate - high VTE Device Contraindication: N/A - Device Ordered VTE Drug Contraindication: Treatment Not Indicated
[2025-06-28] MEDS: Lactated Ringers 1,000 ML 80 ML IVCONT (13:51)
--- NOTE | 2025-06-28 14:45 | MHC.CM.PN ---
PT recommending STR. Reviewed recommendation w/ patient and son. Patient is now agreeable to STR. Choices are 1) [facility], 2) [facility] and 3) [facility]. Reviewed levels of care (STR vs Acute Rehab). Referrals placed as requested. Awaiting response. CM will continue to follow.
--- NOTE | 2025-06-28 17:59 | PC.NURSE ---
RILEY Mccloud made aware pt BP 90/50 and recheck 104/52 manually. Pt asymptomatic. PA also made aware pt urine output low throughout shift, pt has hx of self cath at home, pt bladder scanned for 86ML. No new orders at this time. IVF infusing per orders.
[2025-06-29 03:19] VITALS: BP 109/57; PULSE 84; RESP 16; TEMP 36.6; O2SAT 95
[2025-06-29 07:34] VITALS: BP 114/58; PULSE 93; RESP 16; TEMP 36.4; O2SAT 95
--- NOTE | 2025-06-29 07:43 | PM.PNORT ---
Subjective Subjective Date of Service: 06/29/25 Interval history: POD1 s/p left hip IM Nail Patient is resting in bed comfortably No overnight events Pain is managed Reports that chest tightness is still present, per Medicine probably due to intubation Physical Exam Vital Signs: Vital Signs: Last Vital Signs Temp 97.5 F 06/29/25 07:34 Pulse 93 06/29/25 07:34 Resp 16 06/29/25 07:34 BP 114/58 L 06/29/25 07:34 Pulse Ox 95 06/29/25 07:34 O2 Del Method Room Air 06/29/25 07:34 BMI result Body Mass Index 23.2 Const: General: cooperative, healthy appearing and no acute distress Resp: Effort & Inspection: normal respiratory effort and able to speak in complete sentences Cardio: Rate: regular rate Peripheral pulses: Peripheral pulses 2+ throughout GI: Palpation (GI): Soft to palpation Skin: Lesions: no lesions Rashes: no rashes Extrem: Other: left hip dressing is c/d/i. Able to dorsi/plantar flex. Calf is supple and nontender. Sensation intact. Pedal pulse intact. Procedures Date of Service Date of Service: 06/29/25 Progress Note: A&P Assessment and plan (1) Closed intertrochanteric fracture of left femur: Status: Acute Plan Continue pain mgmnt Begin ASA for dvt ppx begin PT/OT for LT hip IM Nail - WBAT Dispo planning- PT, pain mgmnt, Time Spent With Patient Time: Total time managing care of this patient today ____ minutes. Quality Stroke Does the patient have a stroke diagnosis?: No VTE Prior VTE?: No VTE Risk Level:: Medical - moderate - high VTE Device Contraindication: N/A - Device Ordered VTE Drug Contraindication: Treatment Not Indicated
[2025-06-29 08:02] VITALS: RESP 18
[2025-06-29] MEDS: Metoprolol Succinate ER 25 MG TAB.ER.24H PO (08:02)
[2025-06-29] MEDS: 0.9 % Sodium Chloride Flush 3 ML SYRINGE IVFLUSH (08:03)
[2025-06-29 09:39] LABS: Hematocrit 30.2 % (37.0-47.0); Hemoglobin 9.8 g/dl (12.0-16.0); Mean Corpuscular HGB Conc 32.5 g/dl (31.0-35.0); Mean Corpuscular Hemoglobin 28.3 pg (27.0-33.0); Mean Corpuscular Volume 87.3 fL (80.0-98.0); NRBC Abs Auto 0.000 X10*3/uL (0.0-0.012); NRBC Pct Auto 0.0 /100WBC (0.0-0.2); Platelet Count 236 X10*3/uL (160-400); Red Blood Count 3.46 X10*6/uL (4.20-5.50); White Blood Count 11.8 X10*3/uL (4.8-10.8)
[2025-06-29 09:54] LABS: Anion Gap 12 (12-20); Blood Urea Nitrogen 24 mg/dL (9-16); Calcium 8.5 mg/dL (8.4-10.2); Carbon Dioxide 27 mmol/L (22-29); Chloride 103 mmol/L (96-108); Creatinine Clr Calc Pharmacy 50.1; Estimated Glomerular Filt Rate > 60; Potassium 4.0 mmol/L (3.3-5.1); Sodium 138 mmol/L (135-145)
--- NOTE | 2025-06-29 10:26 | MHC.CM.PN ---
Per MD rounds, patient medically cleared for dc to STR. Accepted bed at [facility] BLS transport scheduled for 1pm. Patient, family, RN, and PA aware.
[2025-06-29 11:39] VITALS: BP 100/58; PULSE 90; RESP 16; TEMP 36.6; O2SAT 93
--- NOTE | 2025-06-29 12:41 | P.DS_ITS ---
DS: Providers Provider Date of Service: 06/29/25 Date of admission: 06/26/25 11:57 Date of discharge: 06/29/25 Primary care physician: Beata Mcfarlane MD Consults: 06/26/25 11:57 Consult to Orthopedics Routine Consulting [place] [facility] Reason for consultation: Left hip fracture Has provider been notified: Yes DS: Diagnosis Discharge Diagnosis (1) Closed intertrochanteric fracture of left femur: Status: Acute DS: Summary Hospital Course Hospital Course: From admission HPI: Date of Service: 06/26/25 Chief Complaint: Left hip pain Pt is an 84-year-old female with a PMH significant for?HTN, osteoporosis, hx of spinal fractures x4, and GERD who presents to the ED with?left hip pain after mechanical fall at home. Pt reports this morning she was getting up from her kitchen table when she tripped on the chair and fell on her left side. Denies loss of consciousness or head strike. Pt immediately experienced left hip and thigh pain down to her knee and was unable to stand. No lightheadedness or dizziness. Denies chest pain/pressure, or palpitations. No fever or chills. In the ED pt was mildly hypertensive at 151/72, otherwise vitals stable and WNL. Labs were grossly unremarkable and around baseline for pt. No leukocytosis. Stable H&H. No significant electrolyte abnormalities. Renal and hepatic function baseline. Troponin WNL at 3.1. Hip/pelvis x-ray showed acute comminuted intertrochanteric fracture of left femur. CXR showed chronic interstitial lung disease with questionable mild interstitial lung edema. CTA of head and C-spine negative for acute abnormalities. EKG demonstrated normal sinus rhythm without evidence of significant ST elevations or depressions. ED clinician contacted Orthopedics who plan for surgical intervention tomorrow morning. Pt was treated in the ED with hydromorphone. Pt is admitted to the hospital for acute left hip fracture requiring surgical intervention. Hospital course: You were admitted to the hospital after experiencing an acute comminuted intertrochanteric fracture of the left femur secondary to mechanical fall at home. Were seen and evaluated by Orthopedics and underwent surgical repair with left IM nail that was performed without complications. Initially complained of some chest discomfort with deep inspiration and underwent both CXR that was negative for acute abnormalities and V/Q perfusion study without evidence of acute pulmonary embolism. Of note, pt was unable to get CTA of chest due to anaphylactic allergy to IV contrast. Overall hospital stay was uncomplicated. Today, pt reports no difficulty or pain with breathing. Pain well managed. Pt was seen evaluated by Physical therapy who suggested short-term rehab for maximum mobility, strength, and conditioning. Pt will be discharged to [facility] on ASA 325 mg b.i.d. x3 weeks for DVT prophylaxis, as well as short course of oxycodone for pain management. Pt should otherwise resume all of her other home medications. Time Attestation Discharge Coordination Time (in mins): 35 Quality: Safe Use of Opioids Does Pt have an Active Cancer Diagnosis on the Problem List?: No Quality: Stroke Does the patient have a stroke diagnosis?: No Physical Exam Exam: Exam: General: AOx3, no acute distress Resp: CTA bilaterally CVS: S1, S2, RRR GI: +BS, NT, no distention Skin: Warm, dry Neuro: Cranial nerves II-XII grossly intact bilaterally. Motor grossly intact bilaterally Extremities: No edema. Left hip with the appropriate tenderness at surgical site. Left hip with clean and dry dressing in place. No evidence of infection. Pt able to move toes. Feet well perfused. Psych: Appropriate affect Vital Signs: Vital Signs: Last Vital Signs Temp 97.8 F 06/29/25 11:39 Pulse 90 06/29/25 11:39 Resp 16 06/29/25 11:39 BP 100/58 L 06/29/25 11:39 Pulse Ox 93 06/29/25 11:39 O2 Del Method Room Air 06/29/25 11:39 BMI result Body Mass Index 23.2 DS: Data Data Completed and Pending Labs on day of discharge: Laboratory Results - last 24 hr 06/29/25 09:06 WBC 11.8 H RBC 3.46 L Hgb 9.8 L Hct 30.2 L MCV 87.3 MCH 28.3 MCHC 32.5 RDW 15.3 Plt Count 236 MPV 9.9 Absolute Nucleated RBC 0.000 Nucleated RBC % (auto) 0.0 Sodium 138 Potassium 4.0 Chloride 103 Carbon Dioxide 27 Anion Gap 12 BUN 24 H Creatinine 0.60 Estim Creat Clear Calc 50.1 Estimated GFR > 60 Random Glucose 102 Calcium 8.5 Discharge Plan Discharge Anticipated Discharge Date/Time: 06/29/25 12:22 Patient Disposition: Xfer SNF Discharge Diagnosis: Left femur acute comminuted intertrochanteric fracture [place] [facility] [place] Group] - 1 Week Beata Mcfarlane MD [Primary Care Provider, Medical] - 1 Week Discharge Medications: New aspirin 325 mg tablet 325 mg PO BID 42 Days Qty: 84 0RF Rx Instructions: Take 1 tablet twice a day for the next 6 weeks for DVT prophylaxis. oxycodone 5 mg tablet 5 mg PO TID PRN (Reason: pain, severe) Qty: 20 0RF Rx Instructions: Partial Fill upon patient request. Take 1 tablet up to 3 times daily for severe pain Continued amlodipine 5 mg tablet 5 mg PO DAILY pantoprazole 40 mg tablet,delayed release (DR/EC) 40 mg PO DAILY@0630 metoprolol succinate 25 mg tablet extended release 24 hr 25 mg PO DAILY ferrous sulfate 325 mg (65 mg iron) Tablet,Delayed Release (Dr/Ec) 325 mg PO DAILY cholecalciferol (vitamin D3) [Vitamin D3] 25 mcg (1,000 unit) Capsule 25 mcg PO DAILY Discharge Orders: Discharge Order (Routine); Ordered 06/29/25 Ordered By: Anna Salmon Activity on Discharge: As tolerated Stand Alone Forms: Patient Portal Discharge page Print Language: Slovak Care Plan Goals: See below Health Concerns: Left hip fracture Generalized weakness and deconditioning Plan of Treatment: You were admitted to the hospital for left hip fracture after mechanical fall at home. You underwent surgical repair with a left hip intramedullary nail. You have been seen and evaluated by Physical therapy who recommend short-term rehab for maximum recuperation strength, conditioning, and mobility. You will be discharged on a short course of oxycodone for pain management, and aspirin for DVT prophylaxis. -- take aspirin 325 mg twice a day for the next 6 weeks for DVT prophylaxis -- weight-bearing as tolerated -- follow up [place] [facility] [place]-2 weeks to monitor recovery Physical therapy for intramedullary nail: WBAT, posterior precautions, gait training, range of motion, strength Limit stair climbing No showering, no tub bath-keep dressing clean dry and intact No driving for 6 weeks Continue aspirin twice a day for 6 weeks Follow-up with [facility] in 2 weeks Assessment: See discharge summary
--- NOTE | 2025-06-30 17:17 | P.OP_ITS ---
Operative Note Operative Note Date of Service: 06/27/25 Narrative: Date of Service: 06/27/25 Pre-op diagnosis: Left hip IT fx Post-op diagnosis: same Procedure: Left hip IMN Implants: Clare Gamma4 10x 175 125 deg with 85mm hip screw and 40 mm distal interlock Surgeon: Beau Branch MD Anesthesia: GETA and local Was an Hardware Installer used for this Procedure?: No Estimated blood loss (mL): 100 IV fluids (mL): 500 Pathology: none sent Condition: stable Disposition: PACU Procedure in detail: Patient was brought to the operating room and prepped and draped in standard sterile fashion. Time-out was called to identify proper site procedure proper surgeon and IV antibiotics per weight were administered. She was positioned on the fracture table and a traction and slight internal rotation were performed and biplanar fluoroscopy confirmed initial fracture reduction. I then made a stab incision proximal to the greater trochanter in using a guidewire made a entry point just lateral to the tip of the greater trochanter and placed a guidewire into the femoral metadiaphysis. I then over-reamed with 15 mm Reamer placed my ball-tip guidewire down distally in the femur. I selected a 10x 175 125 deg nail and reamed up to a 11.5. I then inserted the nail. I turned my attention to the hip screw where I used a guidewire and a tip apex distance of less than 1.5 measured my hip screw. I then pre drilled and placed an 85mm hip screw using biplanar fluoroscopy. Once I was satisfied with the position of the hip screw I turned my attention to the distal aspect of the nail. Using the dynamic guide i drilled and measured and then inderted the distal interlocking screw using standard AO technique. I then removed all I tightened my set screw proximally (then released it 1/4 turn). I then removed all extraneous instrumentation. Final biplanar radiographs were taken. I was s atisfied with the position of the hardware and the fracture reduction. I think copiously irrigated closed with absorbable sutures adriano and injected 30 mL of into the area of the incisions. Traction was let down patient was placed in sterile dressing awakened from anesthesia brought to recovery room stable condition there were no known complications.
== END 2025-06-29 13:29 | disposition skilled nursing facility (03) | DRG 481 ==
LOC: HO.ED 11:53 → HO.EDOVER 12:03 → HO.S3 14:31
PROVIDERS: Orthopaedic Surgery; Registered Nurse Emergency; Admitting Provider Student in an Organized Health Care Education/Training Program; Emergency Provider Emergency Medicine; PCP Internal Medicine; Visit Provider Student in an Organized Health Care Education/Training Program
PROC: 0QS736Z Reposition Left Upper Femur with Intramedullary Internal Fixation Device, Percutaneous Approach (ICD-10-PCS; principal; 2025-06-27 13:50)
DX: S72.102A Unspecified trochanteric fracture of left femur, initial encounter for closed fracture (principal); I69.351 Hemiplegia and hemiparesis following cerebral infarction affecting right dominant side; I10 Essential (primary) hypertension; K21.9 Gastro-esophageal reflux disease without esophagitis; R07.9 Chest pain, unspecified; W19.XXXA Unspecified fall, initial encounter; Z79.899 Other long term (current) drug therapy
CPT/HCPCS: 36415; 70450; 71045; 72125; 73502; 78580; 80048; 80053; 81003; 84484; 85025; 85027; 86850; 86900; 86901; 93005; 97162; 97166; 99285; A9540; C1713; J0690; J1171; J1885; J2371; J2405; J2704; J2795; J3010; J7120

== ENCOUNTER → 2025-06-26 09:36 | Outpatient (BNV) | payer MEDICARE, SELFPAY | PROVIDERS: Emergency Provider Emergency Medicine; Visit Provider Radiology Diagnostic Radiology | DX: M50.30 Other cervical disc degeneration, unspecified cervical region (principal); Z04.3 Encounter for examination and observation following other accident; W19.XXXA Unspecified fall, initial encounter | CPT/HCPCS: 70450; 72125 ==

== ENCOUNTER → 2025-06-26 09:46 | Outpatient (BNV) | payer MEDICARE, SELFPAY | PROVIDERS: Admitting Provider Student in an Organized Health Care Education/Training Program; Emergency Provider Emergency Medicine; Visit Provider Internal Medicine | DX: R94.31 Abnormal electrocardiogram [ECG] [EKG] (principal); W19.XXXA Unspecified fall, initial encounter | CPT/HCPCS: 93010 ==

== ENCOUNTER 2025-06-26 11:57 | Outpatient (BNV) | payer MEDICARE, SELFPAY | END 2025-06-28 09:06 | PROVIDERS: Admitting Provider Student in an Organized Health Care Education/Training Program; Emergency Provider Emergency Medicine; PCP Internal Medicine; Visit Provider Radiology Diagnostic Radiology | DX: R07.1 Chest pain on breathing (principal) | CPT/HCPCS: 71045 ==

== ENCOUNTER → 2025-06-26 11:57 | Outpatient (BNV) | payer MEDICARE, SELFPAY | PROVIDERS: Admitting Provider Student in an Organized Health Care Education/Training Program; Emergency Provider Emergency Medicine; Visit Provider Student in an Organized Health Care Education/Training Program | DX: S72.142A Displaced intertrochanteric fracture of left femur, initial encounter for closed fracture (principal) | CPT/HCPCS: 99223; 99233 ==

== ENCOUNTER → 2025-06-26 11:57 | Outpatient (BNV) | payer MEDICARE, SELFPAY | PROVIDERS: Admitting Provider Student in an Organized Health Care Education/Training Program; Emergency Provider Emergency Medicine; Visit Provider Physician Assistant | DX: S72.142A Displaced intertrochanteric fracture of left femur, initial encounter for closed fracture (principal) | CPT/HCPCS: 99223 ==

== ENCOUNTER 2025-07-14 08:24 | Outpatient (REF) | payer MEDICARE, SELFPAY ==
--- NOTE | ~2025-07-14 | XR_ITS ---
EXAMINATION: XR FEMUR 2 VIEWS LEFT CLINICAL INFORMATION: M79.606 - Pain in leg, unspecified COMPARISON: Fluoroscopy images on June 27, 2025 TECHNIQUE: AP and lateral views of the left femur were obtained. FINDINGS: Status post internal fixation of proximal femoral fracture. Hardware is intact. No abnormal perihardware lucency or acute fracture. Previously seen intratrochanteric fracture shows ill-defined margins, likely secondary to healing process. Left femoral head is well seated within respective acetabulum. Multiple metallic skin adriano remain in place. XR/XR femur LT 2V IMPRESSION: Internally fixated left femoral fracture, without evidence of acute complications. Electronically signed by: Cleve Kingsley MD 07/14/2025 02:00 PM EDT
--- OUTSIDE RECORDS SUMMARY | 2025-07-14 08:50 | XMS_ITS | Encounter Summary ---
Author Organization [facility] Address [address] [place] [address] Care Team Providers Care Hat Trimmer Name Role Phone Leland Hernandez MD Primary Care Provider [phone] Encounter Details Date Type Department Care Team (Late st Contact Info) Description 07/08/2025 Lab Requisition [facility] - Main Lab [address] [place] [address] Leland Hernandez MD [address] [place] [address] Essential (primary) hypertension Social History Tobacco Use Types Packs/Day Years Used Date Smoking Tobacco: Never Assessed Comments Unknown Sex and Gender Information Value Date Recorded Sex Assigned at Not on file Legal Sex Female 6:04 PM EST Gender Identity Not on file Sexual Orientation Not on file documented as of this encounter Plan of Treatment Not on file documented as of this encounter Procedures Procedure Name Priority Date/Time Associated Diagnosis Comments COMPLETE BLOOD COUNT Routine 07/10/2025 4:47 AM EDT Essential (primary) hypertension COMPREHENSIVE METABOLIC PANEL Routine 07/10/2025 4:47 AM EDT Essential (primary) hypertension documented in this encounter Results * (ABNORMAL) Comprehensive metabolic panel (07/10/2025 4:47 AM EDT) Sodium 142 133 - 145 mmol/L LAB CHEMISTRY METHOD 07/10/2025 11:16 AM EDT [facility] Potassium 4.5 3.5 - 5.5 mmol/L LAB CHEMISTRY METHOD 07/10/2025 11:16 AM EDT [facility] Chloride 103 96 - 110 mmol/L LAB CHEMISTRY METHOD 07/10/2025 11:16 AM [facility] CO2 32 21 - 32 mmol/L LAB CHEMISTRY METHOD 07/10/2025 11:16 AM [facility] Anion Gap 7 3 - 11 LAB CHEMISTRY METHOD 07/10/2025 11:16 AM [facility] Glucose 63(L) 70 - 100 mg/dL LAB CHEMISTRY METHOD 07/10/2025 11:16 AM [facility] BUN 16 5 - 25 mg/dL LAB CHEMISTRY METHOD 07/10/2025 11:16 AM [facility] Creatinine 0.67 0.50 - 1.10 mg/dL LAB CHEMISTRY METHOD 07/10/2025 11:16 AM [facility] eGFR 87 >=60 mL/min/1. 73m2 LAB CHEMISTRY METHOD 07/10/2025 11:16 AM [facility] Comment:Calculation based on the Chronic Kidney Disease Epidemiology Collaboration (CKD-EPI) equation refit without adjustment for race. BUN/Creatinine Ratio 23.9 LAB CHEMISTRY METHOD 07/10/2025 11:16 AM [facility] Calcium 9.0 8.5 - 10.5 mg/dL LAB CHEMISTRY METHOD 07/10/2025 11:16 AM [facility] AST (SGOT) 23 10 - 42 unit/L LAB CHEMISTRY METHOD 07/10/2025 11:16 AM [facility] ALT (SGPT) 39 10 - 60 unit/L LAB CHEMISTRY METHOD 07/10/2025 11:16 AM [facility] Alkaline Phosphatase 107 42 - 121 unit/L LAB CHEMISTRY METHOD 07/10/2025 11:16 AM [facility] Total Protein 5.8(L) 6.0 - 8.0 g/dL LAB CHEMISTRY METHOD 07/10/2025 11:16 AM [facility] Albumin 3.0(L) 3.2 - 5.0 g/dL LAB CHEMISTRY METHOD 07/10/2025 11:16 AM EDT [facility] Total Bilirubin 0.8 0.0 - 1.4 mg/dL LAB CHEMISTRY METHOD 07/10/2025 11:16 AM EDT [facility] Blood Venous blood specimen / Unknown Venipuncture / Unknown 07/10/2025 4:47 AM EDT 07/10/2025 10:23 AM EDT us Leland Hernandez MD LAB BLOOD ORDERABLES Final Resu lt [facility] [address] [place] [address], [place] [phone] * (ABNORMAL) Complete blood count (07/10/2025 4:47 AM EDT) WBC 7.7 4.8 - 10.8 K/mcL LAB HEMETOLOGY METHOD 07/10/2025 10:39 AM [facility] RBC 3.70(L) 3.80 - 4.80 M/mcL LAB HEMETOLOGY METHOD 07/10/2025 10:39 AM [facility] Hemoglobin 10.6(L) 11.5 - 16.0 g/dL LAB HEMETOLOGY METHOD 07/10/2025 10:39 AM T [facility] Hematocrit 34.8(L) 35.0 - 47.0 % LAB HEMETOLOGY METHOD 07/10/2025 10:39 AM EDT [facility] MCV 93.3 79.0 - 98.0 FL LAB HEMETOLOGY METHOD 07/10/2025 10:39 AM [facility] MCH 28.4 27.0 - 32.0 pcg LAB HEMETOLOGY METHOD 07/10/2025 10:39 AM EDT [facility] MCHC 30.5(L) 32.0 - 37.0 g/dL LAB HEMETOLOGY METHOD 07/10/2025 10:39 AM EDT [facility] RDW 17.6(H) 11.0 - 15.0 % LAB HEMETOLOGY METHOD 07/10/2025 10:39 AM EDT [facility] Platelets 596(H) 130 - 400 K/mcL LAB HEMETOLOGY METHOD 07/10/2025 10:39 AM EDT [facility] MPV 9.5 7.0 - 11.0 FL LAB HEMETOLOGY METHOD 07/10/2025 10:39 AM EDT [facility] NRBC 0.0 <1.0 % LAB HEMETOLOGY METHOD 07/10/2025 10:39 AM EDT [facility] NRBC Absolute 0.00 <0.10 K/mcL LAB HEMETOLOGY METHOD 07/10/2025 10:39 AM EDT [facility] Blood Venous blood specimen / Unknown Venipuncture / Unknown 07/10/2025 4:47 AM EDT 07/10/2025 10:23 AM EDT us Leland Hernandez MD LAB BLOOD ORDERABLES Final Resu lt [facility] [address] [place] [address], documented in this encounter Visit Diagnoses Diagnosis Essential (primary) hypertension Unspecified essential hypertension documented in this encounter Care Teams Hat Trimmer Relationship Specialty Start Date End Date Leland Hernandez MD [address] [place] [address] PCP - General Internal Medicine 06/30/25 documented as of this encounter
--- OUTSIDE RECORDS SUMMARY | 2025-07-14 08:50 | XMS_ITS | Encounter Summary ---
Author Organization [facility] Address [address] [place] [address] Care Team Providers Care Assistant Auditor Name Role Phone Leland Hernandez MD Primary Care Provider [phone] Encounter Details Date Type Department Care Team (Late st Contact Info) Description 07/05/2025 Lab Requisition [facility] - Main Lab [address] [facility] [place] [address] Leland Hernandez MD [address] [place] [address] Essential (primary) hypertension Social History [...] Associated Diagnosis Comments COMPLETE BLOOD COUNT Routine 07/06/2025 6:45 AM EDT Essential (primary) hypertension BASIC METABOLIC PANEL Routine 07/06/2025 6:45 AM EDT Essential (primary) hypertension documented in this encounter Results * (ABNORMAL) Basic metabolic panel (07/06/2025 6:45 AM EDT) Sodium 141 133 - 145 mmol/L LAB CHEMISTRY METHOD 07/06/2025 8:47 AM EDT [facility] Potassium 4.2 3.5 - 5.5 mmol/L LAB CHEMISTRY METHOD 07/06/2025 8:47 AM EDT [facility] Chloride 106 96 - 110 mmol/L LAB CHEMISTRY METHOD 07/06/2025 8:47 AM [facility] CO2 30 21 - 32 mmol/L LAB CHEMISTRY METHOD 07/06/2025 8:47 AM [facility] Anion Gap 5 3 - 11 LAB CHEMISTRY METHOD 07/06/2025 8:47 AM [facility] Glucose 85 70 - 100 mg/dL LAB CHEMISTRY METHOD 07/06/2025 8:47 AM [facility] BUN 14 5 - 25 mg/dL LAB CHEMISTRY METHOD 07/06/2025 8:47 AM [facility] Creatinine 0.48(L) 0.50 - 1.10 mg/dL LAB CHEMISTRY METHOD 07/06/2025 8:47 AM [facility] eGFR 94 >=60 mL/min/1. 73m2 LAB CHEMISTRY METHOD 07/06/2025 8:47 AM [facility] Comment:Calculation based on the Chronic Kidney Disease Epidemiology Collaboration (CKD-EPI) equation refit without adjustment for race. BUN/Creatinine Ratio 29.2 LAB CHEMISTRY METHOD 07/06/2025 8:47 AM [facility] Calcium 8.8 8.5 - 10.5 mg/dL LAB CHEMISTRY METHOD 07/06/2025 8:47 AM [facility] Blood Venous blood specimen / Unknown Venipuncture / Unknown 07/06/2025 6:45 AM EDT 07/06/2025 8:04 AM EDT us Leland Hernandez MD LAB BLOOD ORDERABLES Final Resu lt [facility] [address] [place] [address], [place] [phone] * (ABNORMAL) Complete blood count (07/06/2025 6:45 AM EDT) WBC 8.6 4.8 - 10.8 K/mcL LAB HEMETOLOGY METHOD 07/06/2025 8:27 AM [facility] RBC 3.70(L) 3.80 - 4.80 M/mcL LAB HEMETOLOGY METHOD 07/06/2025 8:27 AM [facility] Hemoglobin 10.4(L) 11.5 - 16.0 g/dL LAB HEMETOLOGY METHOD 07/06/2025 8:27 AM [facility] Hematocrit 33.5(L) 35.0 - 47.0 % LAB HEMETOLOGY METHOD 07/06/2025 8:27 AM [facility] MCV 90.3 79.0 - 98.0 FL LAB HEMETOLOGY METHOD 07/06/2025 8:27 AM [facility] MCH 28.0 27.0 - 32.0 pcg LAB HEMETOLOGY METHOD 07/06/2025 8:27 AM [facility] MCHC 31.0(L) 32.0 - 37.0 g/dL LAB HEMETOLOGY METHOD 07/06/2025 8:27 AM [facility] RDW 16.6(H) 11.0 - 15.0 % LAB HEMETOLOGY METHOD 07/06/2025 8:27 AM [facility] Platelets 547(H) 130 - 400 K/mcL LAB HEMETOLOGY METHOD 07/06/2025 8:27 AM [facility] MPV 9.2 7.0 - 11.0 FL LAB HEMETOLOGY METHOD 07/06/2025 8:27 AM [facility] NRBC 0.0 <1.0 % LAB HEMETOLOGY METHOD 07/06/2025 8:27 AM [facility] NRBC Absolute 0.00 <0.10 K/mcL LAB HEMETOLOGY METHOD 07/06/2025 8:27 AM EDT [facility] Blood Venous blood specimen / Unknown Venipuncture / Unknown 07/06/2025 6:45 AM EDT 07/06/2025 8:04 AM EDT Leland Hernandez MD LAB BLOOD ORDERABLES Final Resu lt [facility] [address] [place] [address], documented in this encounter Visit Diagnoses Diagnosis Essential (primary) hypertension Unspecified essential hypertension documented in this encounter Care Teams Assistant Auditor Relationship Specialty Start Date End Date Leland Hernandez MD [address] [place] [address] PCP - General Internal Medicine 06/30/25 documented as of this encounter
--- OUTSIDE RECORDS SUMMARY | 2025-07-14 08:51 | XMS_ITS | Encounter Summary ---
Author Organization [facility] Address [address] [place] [address] Care Team Providers Care Latent Fingerprint Examiner Name Role Phone Leland Hernandez MD Primary Care Provider [phone] Encounter Details Date Type Department Care Team (Late st Contact Info) Description 06/30/2025 Lab Requisition [facility] - Main Lab [address] [place] [address] Leland Hernandez MD [address] [place] [address] Heart failure, unspecified (CMS/HCC V24, CMS/HCC V28) Social History Tobacco Use Types Packs/Day Years [...] Associated Diagnosis Comments COMPLETE BLOOD COUNT Routine 06/30/2025 5:17 AM EDT Heart failure, unspecified (CMS/HCC V24, CMS/HCC V28) COMPREHENSIVE METABOLIC PANEL Routine 06/30/2025 5:17 AM EDT Heart failure, unspecified (CMS/HCC V24, CMS/HCC V28) documented in this encounter Results * (ABNORMAL) Comprehensive metabolic panel (06/30/2025 5:17 AM EDT) Sodium 139 133 - 145 mmol/L LAB CHEMISTRY METHOD 06/30/2025 11:15 AM EDT [facility] Potassium 4.0 3.5 - 5.5 mmol/L LAB CHEMISTRY METHOD 06/30/2025 11:[address] [facility] Chloride 103 96 - 110 mmol/L LAB CHEMISTRY METHOD 06/30/2025 11:[address] [facility] CO2 29 21 - 32 mmol/L LAB CHEMISTRY METHOD 06/30/2025 11:[address] [facility] Anion Gap 7 3 - 11 LAB CHEMISTRY METHOD 06/30/2025 11:[address] [facility] Glucose 77 70 - 100 mg/dL LAB CHEMISTRY METHOD 06/30/2025 11:[address] [facility] BUN 36(H) 5 - 25 mg/dL LAB CHEMISTRY METHOD 06/30/2025 11:[address] [facility] Creatinine 0.74 0.50 - 1.10 mg/dL LAB CHEMISTRY METHOD 06/30/2025 11:[address] [facility] eGFR 80 >=60 mL/min/1. 73m2 LAB CHEMISTRY METHOD 06/30/2025 11:[address] [facility] Comment:Calculation based on the Chronic Kidney Disease Epidemiology Collaboration (CKD-EPI) equation refit without adjustment for race. BUN/Creatinine Ratio 48.6 LAB CHEMISTRY METHOD 06/30/2025 11:[address] [facility] Calcium 8.5 8.5 - 10.5 mg/dL LAB CHEMISTRY METHOD 06/30/2025 11:[address] [facility] AST (SGOT) 831(H) 10 - 42 unit/L LAB CHEMISTRY METHOD 06/30/2025 11:[address] [facility] ALT (SGPT) 492(H) 10 - 60 unit/L LAB CHEMISTRY METHOD 06/30/2025 11:[address] [facility] Alkaline Phosphatase 160(H) 42 - 121 unit/L LAB CHEMISTRY METHOD 06/30/2025 11:15 AM EDT [facility] Total Protein 5.7(L) 6.0 - 8.0 g/dL LAB CHEMISTRY METHOD 06/30/2025 11:[address] [facility] Albumin 2.8(L) 3.2 - 5.0 g/dL LAB CHEMISTRY METHOD 06/30/2025 11:[address] [facility] Total Bilirubin 1.0 0.0 - 1.4 mg/dL LAB CHEMISTRY METHOD 06/30/2025 11:15 AM T [facility] Blood Venous blood specimen / Unknown Venipuncture / Unknown 06/30/2025 5:17 AM EDT 06/30/2025 10:05 AM EDT us Leland Hernandez MD LAB BLOOD ORDERABLES Final Resu lt [facility] [address] [place] [address], * (ABNORMAL) Complete blood count (06/30/2025 5:17 AM EDT) WBC 11.6(H) 4.8 - 10.8 K/mcL LAB HEMETOLOGY METHOD 06/30/2025 10:[address] [facility] RBC 3.50(L) 3.80 - 4.80 M/mcL LAB HEMETOLOGY METHOD 06/30/2025 10:42 AM T [facility] Hemoglobin 9.7(L) 11.5 - 16.0 g/dL LAB HEMETOLOGY METHOD 06/30/2025 10:[address] [facility] Hematocrit 30.7(L) 35.0 - 47.0 % LAB HEMETOLOGY METHOD 06/30/2025 10:[address] [facility] MCV 88.0 79.0 - 98.0 FL LAB HEMETOLOGY METHOD 06/30/2025 10:42 AM EDT [facility] MCH 27.8 27.0 - 32.0 pcg LAB HEMETOLOGY METHOD 06/30/2025 10:42 AM EDT [facility] MCHC 31.6(L) 32.0 - 37.0 g/dL LAB HEMETOLOGY METHOD 06/30/2025 10:42 AM T [facility] RDW 15.3(H) 11.0 - 15.0 % LAB HEMETOLOGY METHOD 06/30/2025 10:42 AM EDT [facility] Platelets 292 130 - 400 K/mcL LAB HEMETOLOGY METHOD 06/30/2025 10:42 AM EDT [facility] MPV 10.3 7.0 - 11.0 FL LAB HEMETOLOGY METHOD 06/30/2025 10:42 AM EDT [facility] NRBC 0.0 <1.0 % LAB HEMETOLOGY METHOD 06/30/2025 10:42 AM EDT [facility] NRBC Absolute 0.00 <0.10 K/mcL LAB HEMETOLOGY METHOD 06/30/2025 10:42 AM T [facility] Blood Venous blood specimen / Unknown Venipuncture / Unknown 06/30/2025 5:17 AM EDT 06/30/2025 10:05 AM EDT us Leland Hernandez MD LAB BLOOD ORDERABLES Final Resu lt [facility] [address] [place] [address], documented in this encounter Visit Diagnoses Diagnosis Heart failure, unspecified (CMS/HCC V24, CMS/HCC V28) Heart failure, unspecified documented in this encounter Care Teams Latent Fingerprint Examiner Relationship Specialty Start Date End Date Leland Hernandez MD [address] [place] [address] PCP - General Internal Medicine 06/30/25 documented as of this encounter
--- OUTSIDE RECORDS SUMMARY | 2025-07-14 08:51 | XMS_ITS | Encounter Summary ---
Author Organization [facility] Address [address] [place] [address] Care Team Providers Care Sales Account Associate Name Role Phone Leland Hernandez MD Primary Care Provider [phone] Encounter Details Date Type Department Care Team (Late st Contact Info) Description 07/01/2025 Lab Requisition [facility] - Main Lab [address] [facility] [place] [address] Leland Hernandez MD [address] [place] [address] Essential (primary) hypertension Social History [...] Procedure Name Priority Date/Time Associated Diagnosis Comments COMPREHENSIVE METABOLIC PANEL Routine 07/04/2025 7:54 AM EDT Essential (primary) hypertension COMPLETE BLOOD COUNT Routine 07/04/2025 5:03 AM EDT Essential (primary) hypertension documented in this encounter Results * (ABNORMAL) Comprehensive metabolic panel (07/04/2025 7:54 AM EDT) Sodium 141 133 - 145 mmol/L LAB CHEMISTRY METHOD 07/04/2025 12:33 PM EDT [facility] Potassium 4.3 3.5 - 5.5 mmol/L LAB CHEMISTRY METHOD 07/04/2025 12:33 PM EDT [facility] Chloride 103 96 - 110 mmol/L LAB CHEMISTRY METHOD 07/04/2025 12:33 PM [facility] CO2 30 21 - 32 mmol/L LAB CHEMISTRY METHOD 07/04/2025 12:33 PM [facility] Anion Gap 8 3 - 11 LAB CHEMISTRY METHOD 07/04/2025 12:33 PM [facility] Glucose 76 70 - 100 mg/dL LAB CHEMISTRY METHOD 07/04/2025 12:33 PM [facility] BUN 14 5 - 25 mg/dL LAB CHEMISTRY METHOD 07/04/2025 12:33 PM [facility] Creatinine 0.55 0.50 - 1.10 mg/dL LAB CHEMISTRY METHOD 07/04/2025 12:33 PM [facility] eGFR 91 >=60 mL/min/1. 73m2 LAB CHEMISTRY METHOD 07/04/2025 12:33 PM [facility] Comment:Calculation based on the Chronic Kidney Disease Epidemiology Collaboration (CKD-EPI) equation refit without adjustment for race. BUN/Creatinine Ratio 25.5 LAB CHEMISTRY METHOD 07/04/2025 12:33 PM [facility] Calcium 8.4(L) 8.5 - 10.5 mg/dL LAB CHEMISTRY METHOD 07/04/2025 12:33 PM [facility] AST (SGOT) 53(H) 10 - 42 unit/L LAB CHEMISTRY METHOD 07/04/2025 12:33 PM [facility] Comment:Results verified by repeat testing ALT (SGPT) 176(H) 10 - 60 unit/L LAB CHEMISTRY METHOD 07/04/2025 12:33 PM [facility] Alkaline Phosphatase 100 42 - 121 unit/L LAB CHEMISTRY METHOD 07/04/2025 12:33 PM [facility] Total Protein 5.9(L) 6.0 - 8.0 g/dL LAB CHEMISTRY METHOD 07/04/2025 12:33 PM EDT [facility] Albumin 2.8(L) 3.2 - 5.0 g/dL LAB CHEMISTRY METHOD 07/04/2025 12:33 PM EDT [facility] Total Bilirubin 1.1 0.0 - 1.4 mg/dL LAB CHEMISTRY METHOD 07/04/2025 12:33 PM T [facility] Blood Venous blood specimen / Unknown Venipuncture / Unknown 07/04/2025 7:54 AM EDT 07/04/2025 10:21 AM EDT us Leland Hernandez MD LAB BLOOD ORDERABLES Final Resu lt [facility] [address] [place] [address], [place] [phone] * (ABNORMAL) Complete blood count (07/04/2025 5:03 AM EDT) WBC 7.9 4.8 - 10.8 K/mcL LAB HEMETOLOGY METHOD 07/04/2025 10:53 AM [facility] RBC 3.60(L) 3.80 - 4.80 M/mcL LAB HEMETOLOGY METHOD 07/04/2025 10:53 AM [facility] Hemoglobin 9.9(L) 11.5 - 16.0 g/dL LAB HEMETOLOGY METHOD 07/04/2025 10:53 AM T [facility] Hematocrit 32.8(L) 35.0 - 47.0 % LAB HEMETOLOGY METHOD 07/04/2025 10:53 AM [facility] MCV 91.6 79.0 - 98.0 FL LAB HEMETOLOGY METHOD 07/04/2025 10:53 AM [facility] MCH 27.7 27.0 - 32.0 pcg LAB HEMETOLOGY METHOD 07/04/2025 10:53 AM EDT [facility] MCHC 30.2(L) 32.0 - 37.0 g/dL LAB HEMETOLOGY METHOD 07/04/2025 10:53 AM EDT [facility] RDW 15.9(H) 11.0 - 15.0 % LAB HEMETOLOGY METHOD 07/04/2025 10:53 AM EDT [facility] Platelets 466(H) 130 - 400 K/mcL LAB HEMETOLOGY METHOD 07/04/2025 10:53 AM EDT [facility] MPV 9.6 7.0 - 11.0 FL LAB HEMETOLOGY METHOD 07/04/2025 10:53 AM EDT [facility] NRBC 0.0 <1.0 % LAB HEMETOLOGY METHOD 07/04/2025 10:53 AM EDT [facility] NRBC Absolute 0.00 <0.10 K/mcL LAB HEMETOLOGY METHOD 07/04/2025 10:53 AM EDT [facility] Blood Venous blood specimen / Unknown Venipuncture / Unknown 07/04/2025 5:03 AM EDT 07/04/2025 10:16 AM EDT Leland Hernandez MD LAB BLOOD ORDERABLES Final Resu lt [facility] [address] [place] [address], documented in this encounter Visit Diagnoses Diagnosis Essential (primary) hypertension Unspecified essential hypertension documented in this encounter Care Teams Sales Account Associate Relationship Specialty Start Date End Date Leland Hernandez MD [address] [place] [address] PCP - General Internal Medicine 06/30/25 documented as of this encounter
--- OUTSIDE RECORDS SUMMARY | 2025-07-14 08:51 | XMS_ITS | Clinical Summary ---
Author Organization [address] Address [address] [place] [phone] Phone Care Team Providers Care Court Recording Monitor Name Role Phone Leland Hernandez MD Primary Care Provider [phone] Encounters Date Type Department Care Team Description 07/08/2025 Lab Requisition [facility] [address] [place] [address] Leland Hernandez MD Essential (primary) hypertension 07/05/2025 Lab Requisition [facility] [address] [place] [address] Leland Hernandez MD Essential (primary) hypertension 07/01/2025 Lab Requisition [facility] Lab [address] [place] [address] Leland Hernandez MD Essential (primary) hypertension 06/30/2025 Lab Requisition [facility] Lab [address] [place] [phone] Leland Hernandez MD Heart failure, unspecified (CMS/HCC V24, CMS/HCC V28) from Last 3 Months Social History Tobacco Use Types Packs/Day Years Used Date Smoking Tobacco: Never Assessed Comments Unknown Sex and Gender Information Value Date Recorded Sex Assigned at Not on file Legal Sex Female 6:04 PM EST Gender Identity Not on file Sexual Orientation Not on file Plan of Treatment Health Maintenance Due Date Last Done Comments DTaP,Tdap,and Td Vaccines (1 - Tdap) 1960 Pneumococcal Vaccine: 50+ Years (1 of 1 - PCV) 1991 Zoster Vaccines (1 of 2) 1991 RSV Immunization Adult Patients (1 - 1-dose 75+ series) 2016 Depression Screening 11/02/2024 Cholesterol Screening (Lipid Panel) 06/30/2025 Falls Risk Assessment 06/30/2025 Medicare Annual Wellness Visit 06/30/2025 Osteoporosis Screening (Bone Density Screening) 06/30/2025 Social Influencers of Health Screening 06/30/2025 COVID-19 Vaccine ( season) 2025 Influenza Vaccine (#1) 2025 Hypertension/CHF/CAD Annual BMP Blood Test 07/10/2026 07/10/2025, 07/06/2025, 07/04/2025, Additional history exists HIB Vaccines Aged Out No longer eligi ble based on patient's age to complete this topic HPV Vaccines Aged Out No longer eligi ble based on patient's age to complete this topic Hepatitis A Vaccines Aged Out No long er eligible based on patient's age to complete this topic Hepatitis B Vaccines Aged Out No long er eligible based on patient's age to complete this topic IPV Vaccines Aged Out No longer eligi ble based on patient's age to complete this topic MMR Vaccines Aged Out No longer eligi ble based on patient's age to complete this topic Meningococcal ACWY Vaccine Aged Out N o longer eligible based on patient's age to complete this topic Meningococcal B Vaccine Aged Out No l onger eligible based on patient's age to complete this topic RSV Immunization Patients Under 20 months Aged Out No longer eligible based on patient's age to complete this topic Varicella Vaccines Aged Out No longer eligible based on patient's age to complete this topic Procedures Procedure Name Priority Date/Time Associated Diagnosis Comments COMPREHENSIVE METABOLIC PANEL Routine 07/10/2025 4:47 AM EDT Essential (primary) hypertension COMPLETE BLOOD COUNT Routine 07/10/2025 4:47 AM EDT Essential (primary) hypertension BASIC METABOLIC PANEL Routine 07/06/2025 6:45 AM EDT Essential (primary) hypertension COMPLETE BLOOD COUNT Routine 07/06/2025 6:45 AM EDT Essential (primary) hypertension COMPREHENSIVE METABOLIC PANEL Routine 07/04/2025 7:54 AM EDT Essential (primary) hypertension COMPLETE BLOOD COUNT Routine 07/04/2025 5:03 AM EDT Essential (primary) hypertension COMPREHENSIVE METABOLIC PANEL Routine 06/30/2025 5:17 AM EDT Heart failure, unspecified (CMS/HCC V24, CMS/HCC V28) COMPLETE BLOOD COUNT Routine 06/30/2025 5:17 AM EDT Heart failure, unspecified (CMS/HCC V24, CMS/HCC V28) from Last 3 Months Results * (ABNORMAL) Complete blood count (07/10/2025 4:47 AM EDT) Only the most recent of4 resultswithin the time period is included. WBC 7.7 4.8 - 10.8 K/mcL LAB HEMETOLOGY METHOD 07/10/2025 10:39 AM [facility] RBC 3.70(L) 3.80 - 4.80 M/mcL LAB HEMETOLOGY METHOD 07/10/2025 10:39 AM [facility] Hemoglobin 10.6(L) 11.5 - 16.0 g/dL LAB HEMETOLOGY METHOD 07/10/2025 10:39 AM [facility] Hematocrit 34.8(L) 35.0 - 47.0 % LAB HEMETOLOGY METHOD 07/10/2025 10:39 AM [facility] MCV 93.3 79.0 - 98.0 FL LAB HEMETOLOGY METHOD 07/10/2025 10:39 AM [facility] MCH 28.4 27.0 - 32.0 pcg LAB HEMETOLOGY METHOD 07/10/2025 10:39 AM [facility] MCHC 30.5(L) 32.0 - 37.0 g/dL LAB HEMETOLOGY METHOD 07/10/2025 10:39 AM EDT [facility] RDW 17.6(H) 11.0 - 15.0 % LAB HEMETOLOGY METHOD 07/10/2025 10:39 AM EDT [facility] Platelets 596(H) 130 - 400 K/mcL LAB HEMETOLOGY METHOD 07/10/2025 10:39 AM EDT [facility] MPV 9.5 7.0 - 11.0 FL LAB HEMETOLOGY METHOD 07/10/2025 10:39 AM EDT [facility] NRBC 0.0 <1.0 % LAB HEMETOLOGY METHOD 07/10/2025 10:39 AM EDT [facility] NRBC Absolute 0.00 <0.10 K/mcL LAB HEMETOLOGY METHOD 07/10/2025 10:39 AM EDT [facility] Blood Venous blood specimen / Unknown Venipuncture / Unknown 07/10/2025 4:47 AM EDT 07/10/2025 10:23 AM EDT us Leland Hernandez MD LAB BLOOD ORDERABLES Final Resu lt [facility] [address] [place] [address], [place] [phone] * (ABNORMAL) Comprehensive metabolic panel (07/10/2025 4:47 AM EDT) Only the most recent of3 resultswithin the time period is included. Sodium 142 133 - 145 mmol/L LAB CHEMISTRY METHOD 07/10/2025 11:16 AM EDT [facility] Potassium 4.5 3.5 - 5.5 mmol/L LAB CHEMISTRY METHOD 07/10/2025 11:16 AM EDT [facility] Chloride 103 96 - 110 mmol/L LAB CHEMISTRY METHOD 07/10/2025 11:16 AM EDT [facility] CO2 32 21 - 32 mmol/L LAB CHEMISTRY METHOD 07/10/2025 11:16 AM [facility] Anion Gap 7 3 - 11 LAB CHEMISTRY METHOD 07/10/2025 11:16 AM [facility] Glucose 63(L) 70 - 100 mg/dL LAB CHEMISTRY METHOD 07/10/2025 11:16 AM [facility] BUN 16 5 - 25 mg/dL LAB CHEMISTRY METHOD 07/10/2025 11:16 AM [facility] Creatinine 0.67 0.50 - 1.10 mg/dL LAB CHEMISTRY METHOD 07/10/2025 11:16 AM [facility] eGFR 87 >=60 mL/min/1. 73m2 LAB CHEMISTRY METHOD 07/10/2025 11:16 AM [facility] Comment:Calculation based on the Chronic Kidney Disease Epidemiology Collaboration (CKD-EPI) equation refit without adjustment for race. BUN/Creatinine Ratio 23.9 LAB CHEMISTRY METHOD 07/10/2025 11:16 AM [facility] Calcium 9.0 8.5 - 10.5 mg/dL LAB CHEMISTRY METHOD 07/10/2025 11:16 AM [facility] AST (SGOT) 23 10 - 42 unit/L LAB CHEMISTRY METHOD 07/10/2025 11:16 AM [facility] ALT (SGPT) 39 10 - 60 unit/L LAB CHEMISTRY METHOD 07/10/2025 11:16 AM [facility] Alkaline Phosphatase 107 42 - 121 unit/L LAB CHEMISTRY METHOD 07/10/2025 11:16 AM [facility] Total Protein 5.8(L) 6.0 - 8.0 g/dL LAB CHEMISTRY METHOD 07/10/2025 11:16 AM [facility] Albumin 3.0(L) 3.2 - 5.0 g/dL LAB CHEMISTRY METHOD 07/10/2025 11:16 AM [facility] Total Bilirubin 0.8 0.0 - 1.4 mg/dL LAB CHEMISTRY METHOD 07/10/2025 11:16 AM [facility] Blood Venous blood specimen / Unknown Venipuncture / Unknown 07/10/2025 4:47 AM EDT 07/10/2025 10:23 AM EDT us Leland Hernandez MD LAB BLOOD ORDERABLES Final Resu lt [facility] [address] [place] [address], [place] [phone] * (ABNORMAL) Basic metabolic panel (07/06/2025 6:45 AM EDT) Sodium 141 133 - 145 mmol/L LAB CHEMISTRY METHOD 07/06/2025 8:47 AM [facility] Potassium 4.2 3.5 - 5.5 mmol/L LAB CHEMISTRY METHOD 07/06/2025 8:47 AM [facility] Chloride 106 96 - 110 mmol/L LAB CHEMISTRY METHOD 07/06/2025 8:47 AM [facility] CO2 30 21 - 32 mmol/L LAB CHEMISTRY METHOD 07/06/2025 8:47 AM [facility] Anion Gap 5 3 - 11 LAB CHEMISTRY METHOD 07/06/2025 8:47 AM [facility] Glucose 85 70 - 100 mg/dL LAB CHEMISTRY METHOD 07/06/2025 8:47 AM [facility] BUN 14 5 - 25 mg/dL LAB CHEMISTRY METHOD 07/06/2025 8:47 AM [facility] Creatinine 0.48(L) 0.50 - 1.10 mg/dL LAB CHEMISTRY METHOD 07/06/2025 8:47 AM [facility] eGFR 94 >=60 mL/min/1. 73m2 LAB CHEMISTRY METHOD 07/06/2025 8:47 AM EDT [facility] Comment:Calculation based on the Chronic Kidney Disease Epidemiology Collaboration (CKD-EPI) equation refit without adjustment for race. BUN/Creatinine Ratio 29.2 LAB CHEMISTRY METHOD 07/06/2025 8:47 AM EDT [facility] Calcium 8.8 8.5 - 10.5 mg/dL LAB CHEMISTRY METHOD 07/06/2025 8:47 AM EDT [facility] Blood Venous blood specimen / Unknown Venipuncture / Unknown 07/06/2025 6:45 AM EDT 07/06/2025 8:04 AM EDT us Leland Hernandez MD LAB BLOOD ORDERABLES Final Resu lt [facility] [address] [place] [address], from Last 3 Months Insurance MEDICARE [facility] Care Teams Court Recording Monitor Relationship Specialty Start Date End Date Leland Hernandez MD [address] [place] [address] PCP - General Internal Medicine 06/30/25
== END 2025-07-14 08:25 | disposition home or self-care (01) ==
LOC: HO.HOSX 08:24
PROVIDERS: Visit Provider Physician Assistant
DX: S72.412D Displaced unspecified condyle fracture of lower end of left femur, subsequent encounter for closed fracture with routine healing (principal); X58.XXXD Exposure to other specified factors, subsequent encounter
CPT/HCPCS: 73552; 99212

== ENCOUNTER 2025-07-14 13:32 | Outpatient (AMB) | payer MEDICARE, SELFPAY ==
--- NOTE | 2025-07-14 13:41 | A.OFFVIS_ITS ---
Intake Visit Reasons: PO 06/27/25 Left Hip IMN NE Intake Note: Daina is an 84 year old woman who presents today for a post operative visit status post undergoing a left hip IMN DOS: 06/27/[address] Beau Branch. Patient reports she is doing well, states no pain since the past week. She has no concerns today. Allergies Iodinated Contrast Media (IV CONTRAST) Allergy (Unknown, Verified 07/14/25 13:54) ANAPHYLAXIS Sulfa (Sulfonamide Antibiotics) (SULFA (SULFONAMIDE ANTIBIOTICS)) Allergy (Unknown, Verified 07/14/25 13:54) RASH HPI HPI PO 06/27/25 Left Hip IMN NE: Details: 84-year-old female presents to the office today status post left hip intramedullary nail with Dr. Branch on 06/27/2025. The patient states she has been discharged from rehab tomorrow and she is currently ambulating with a walker with physical therapy. [facility] Medical History Rib fractures History of cataract Prediabetes Right sided weakness CVA (cerebral vascular accident) Chronic constipation Fall Palpitation Hx of spinal stenosis History of osteoarthritis GERD (gastroesophageal reflux disease) HTN (hypertension) Surgical History Hx of hysterectomy Hx of cataract extraction Social History Household Members: None Household Members Other:: son lives next day Housing: Apartment Do you presently have visiting nurse or other home services: No Patient Tobacco Use Status: Never used Tobacco Second Hand Smoke Exposure: No Advance Directives Date on File: 06/26/25 service: No Review of Systems Const All systems reviewed & are unremarkable except as noted in HPI and below Physical Exam Extrem Other: Left hip incision is clean dry and intact no surrounding erythema or drainage. She is able to perform hip flexion and range of motion without pain calf is supple and nontender neurovascularly intact. Results Reviewed Results Reviewed: X-rays of the left hip obtained in the office today and reviewed by me show intact intramedullary nail with stable fracture pattern. Assessment & Plan Assessment & Plan (1) Closed intertrochanteric fracture of left femur: Code(s): S72.142A - Displaced intertrochanteric fracture of left femur, initial encounter for closed fracture Category: Medical Plan: Rebecca removed today Steri-Strips applied the patient will continue with physical therapy weightbearing as tolerated and gait training. Increase activities as tolerated and she will see me back in 6-8 weeks with x-rays, sooner if needed. Orders: Orders XR femur LT 2V Today M79.606 - Pain in leg, unspecified Coding Level of Care Code Global (64151) Diagnoses Closed intertrochanteric fracture of left femur S72.142A
== END 2025-07-14 14:13 | disposition home or self-care (01) ==
LOC: HO.HOS 13:33
PROVIDERS: PCP Internal Medicine; Visit Provider Physician Assistant
DX: S72.142A Displaced intertrochanteric fracture of left femur, initial encounter for closed fracture (principal)
CPT/HCPCS: 99024

== ENCOUNTER → 2025-07-14 13:39 | Outpatient (BNV) | payer MEDICARE, SELFPAY | PROVIDERS: Visit Provider Radiology Body Imaging | DX: S72.145D Nondisplaced intertrochanteric fracture of left femur, subsequent encounter for closed fracture with routine healing (principal) | CPT/HCPCS: 73552 ==

== ENCOUNTER 2025-09-01 08:54 | Outpatient (AMB) | payer MEDICARE, SELFPAY ==
--- NOTE | 2025-09-01 09:14 | A.OFFVIS_ITS ---
Intake Visit Reasons: PO-f/u Lt hip IMN 06/27/25 w xrays Intake Note: Daina is an 85 year old woman who presents today for a post operative visit status post left hip IMN DOS: 06/27/[address] Beau Branch. At her last visit she was instructed to continue with physical therapy. She will follow up in 6-8 weeks with x-rays. Today patient reports that she is doing well, however she complains of discomfort in her thigh/hip area. She continues to attend physical therapy. She is requesting an order blood work to check her liver function, as she has to hold off on taking Tylenol due to recent labs. Allergies Iodinated Contrast Media (IV CONTRAST) Allergy (Unknown, Verified 09/01/25 09:21) ANAPHYLAXIS Sulfa (Sulfonamide Antibiotics) (SULFA (SULFONAMIDE ANTIBIOTICS)) Allergy (Unknown, Verified 09/01/25 09:21) RASH Medication List - Last Reconciled 09/01/25 by Willie Dunn PA-C amlodipine 5 mg PO DAILY cholecalciferol (vitamin D3) (Vitamin D3) 25 mcg PO DAILY ferrous sulfate 325 mg PO DAILY metoprolol succinate ER 25 mg PO DAILY pantoprazole 40 mg PO DAILY@0630 HPI HPI PO-f/u Lt hip IMN 06/27/25 w xrays: Details: 85 yo female returns to the office today approximately 2-1/2 months status post left hip IM nail on 06/27/2025. She is ambulating with a walker and continues to work with physical therapy. She has mild discomfort in the thigh but also complains of left knee pain. She has had injections in the left knee before for arthritis. [facility] Medical History Rib fractures History of cataract Prediabetes Right sided weakness CVA (cerebral vascular accident) Chronic constipation Fall Palpitation Hx of spinal stenosis History of osteoarthritis GERD (gastroesophageal reflux disease) HTN (hypertension) Surgical History Hx of hysterectomy Hx of cataract extraction Social History Household Members: None Household Members Other:: son lives next day Housing: Apartment Do you presently have visiting nurse or other home services: No Patient Tobacco Use Status: Never used Tobacco Second Hand Smoke Exposure: No Advance Directives Date on File: 06/26/25 service: No Review of Systems Const All systems reviewed & are unremarkable except as noted in HPI and below Physical Exam Extrem Other: Left hip incision is well healed. no surrounding erythema or drainage. She is able to perform hip flexion and range of motion without pain calf is supple and nontender neurovascularly intact. Results Reviewed Results Reviewed: X-rays of the left hip obtained in the office today and reviewed by me show intact intramedullary nail with stable fracture pattern. Assessment & Plan Assessment & Plan (1) Closed intertrochanteric fracture of left femur: Code(s): S72.142A - Displaced intertrochanteric fracture of left femur, initial encounter for closed fracture Category: Medical Plan: She will continue working with physical therapy and increase activities as tolerated. I stressed the importance of glute and strengthening and conditioning exercises. She has been concerned about her liver enzymes and has been unable to get a successful lab draw and get through to her primary so I did place an order but explain she needs to follow up with her primary and high did have the results cc to him as well. She will see me back in 6-8 weeks with x- rays, sooner if needed. Orders: Orders XR femur LT 2V Today M79.606 - Pain in leg, unspecified Liver Panel Today R74.8 - Abnormal levels of other serum enzymes Coding Level of Care Code Global (84115) Diagnoses Closed intertrochanteric fracture of left femur S72.142A
--- OUTSIDE RECORDS SUMMARY | 2025-09-01 09:27 | XMS_ITS | Encounter Summary ---
Author Organization [facility] Address [address] [place] [address] Care Team Providers Care Province Archivist Name Role Phone Leland Hernandez MD Primary Care Provider [phone] Encounter Details Date Type Department Care Team (Late st Contact Info) Description 07/08/2025 Lab Requisition [facility] - Main Lab [address] [facility] [place] [address] Leland Hernandez MD [address] [place] [address] Essential (primary) hypertension Social History [...] LAB CHEMISTRY METHOD 07/10/2025 11:16 AM EDT [facility] Potassium 4.5 3.5 - 5.5 mmol/L LAB CHEMISTRY METHOD 07/10/2025 11:16 AM EDT [facility] Chloride 103 96 - 110 mmol/L LAB CHEMISTRY METHOD 07/10/2025 11:[address] [facility] CO2 32 21 - 32 mmol/L LAB CHEMISTRY METHOD 07/10/2025 11:[address] [facility] Anion Gap 7 3 - 11 LAB CHEMISTRY METHOD 07/10/2025 11:[address] [facility] Glucose 63(L) 70 - 100 mg/dL LAB CHEMISTRY METHOD 07/10/2025 11:[address] [facility] BUN 16 5 - 25 mg/dL LAB CHEMISTRY METHOD 07/10/2025 11:[address] [facility] Creatinine 0.67 0.50 - 1.10 mg/dL LAB CHEMISTRY METHOD 07/10/2025 11:[address] [facility] eGFR 87 >=60 mL/min/1. 73m2 LAB CHEMISTRY METHOD 07/10/2025 11:[address] [facility] Comment:Calculation based on the Chronic Kidney Disease Epidemiology Collaboration (CKD-EPI) equation refit without adjustment for race. BUN/Creatinine Ratio 23.9 LAB CHEMISTRY METHOD 07/10/2025 11:[address] [facility] Calcium 9.0 8.5 - 10.5 mg/dL LAB CHEMISTRY METHOD 07/10/2025 11:[address] [facility] AST (SGOT) 23 10 - 42 unit/L LAB CHEMISTRY METHOD 07/10/2025 11:[address] [facility] ALT (SGPT) 39 10 - 60 unit/L LAB CHEMISTRY METHOD 07/10/2025 11:[address] [facility] Alkaline Phosphatase 107 42 - 121 unit/L LAB CHEMISTRY METHOD 07/10/2025 11:[address] [facility] Total Protein 5.8(L) 6.0 - 8.0 g/dL LAB CHEMISTRY METHOD 07/10/2025 11:[address] [facility] Albumin 3.0(L) 3.2 - 5.0 g/dL LAB CHEMISTRY METHOD 07/10/2025 11:16 AM EDT [facility] Total Bilirubin 0.8 0.0 - 1.4 mg/dL LAB CHEMISTRY METHOD 07/10/2025 11:16 AM EDT [facility] Blood Venous blood specimen / Unknown Venipuncture / Unknown 07/10/2025 4:47 AM EDT 07/10/2025 10:23 AM EDT us Leland Hernandez MD LAB BLOOD ORDERABLES Final Resu lt [facility] [address] [place] [address], [place] [phone] * (ABNORMAL) Complete blood count (07/10/2025 4:47 AM EDT) WBC 7.7 4.8 - 10.8 K/mcL LAB HEMETOLOGY METHOD 07/10/2025 10:[address] [facility] RBC 3.70(L) 3.80 - 4.80 M/mcL LAB HEMETOLOGY METHOD 07/10/2025 10:[address] [facility] Hemoglobin 10.6(L) 11.5 - 16.0 g/dL LAB HEMETOLOGY METHOD 07/10/2025 10:39 AM T [facility] Hematocrit 34.8(L) 35.0 - 47.0 % LAB HEMETOLOGY METHOD 07/10/2025 10:39 AM EDT [facility] MCV 93.3 79.0 - 98.0 FL LAB HEMETOLOGY METHOD 07/10/2025 10:[address] [facility] MCH 28.4 27.0 - 32.0 pcg LAB HEMETOLOGY METHOD 07/10/2025 10:39 AM EDT [facility] MCHC 30.5(L) 32.0 - 37.0 g/dL LAB HEMETOLOGY METHOD 07/10/2025 10:39 AM EDT [facility] RDW 17.6(H) 11.0 - 15.0 % LAB HEMETOLOGY METHOD 07/10/2025 10:39 AM EDT [facility] Platelets 596(H) 130 - 400 K/mcL LAB HEMETOLOGY METHOD 07/10/2025 10:39 AM EDT [facility] MPV 9.5 7.0 - 11.0 FL LAB HEMETOLOGY METHOD 07/10/2025 10:39 AM EDT [facility] NRBC 0.0 <1.0 % LAB HEMETOLOGY METHOD 07/10/2025 10:39 AM EDT [facility] NRBC Absolute 0.00 <0.10 K/mcL LAB HEMETOLOGY METHOD 07/10/2025 10:39 AM EDT [facility] Blood Venous blood specimen / Unknown Venipuncture / Unknown 07/10/2025 4:47 AM EDT 07/10/2025 10:23 AM EDT us Leland Hernandez MD LAB BLOOD ORDERABLES Final Resu lt [facility] [address] [place] [address], documented in this encounter Visit Diagnoses Diagnosis Essential (primary) hypertension Unspecified essential hypertension documented in this encounter Care Teams Province Archivist Relationship Specialty Start Date End Date Leland Hernandez MD [address] [place] [address] PCP - General Internal Medicine 06/30/25 documented as of this encounter
--- OUTSIDE RECORDS SUMMARY | 2025-09-01 09:27 | XMS_ITS | Encounter Summary ---
Author Organization [facility] Address [address] [place] [address] Care Team Providers Care Accounts Manager Name Role Phone Leland Hernandez MD Primary Care Provider [phone] Encounter Details Date Type Department Care Team (Late st Contact Info) Description 07/05/2025 Lab Requisition [facility] - Main Lab [address] [facility] [place] [address] Leland Hernandez MD [address] [place] [address] Essential (primary) hypertension Social History [...] LAB CHEMISTRY METHOD 07/06/2025 8:47 AM EDT [facility] Potassium 4.2 3.5 - 5.5 mmol/L LAB CHEMISTRY METHOD 07/06/2025 8:47 AM EDT [facility] Chloride 106 96 - 110 mmol/L LAB CHEMISTRY METHOD 07/06/2025 8:47 AM [facility] CO2 30 21 - 32 mmol/L LAB CHEMISTRY METHOD 07/06/2025 8:47 AM [facility] Anion Gap 5 3 - 11 LAB CHEMISTRY METHOD 07/06/2025 8:47 AM [facility] Glucose 85 70 - 100 mg/dL LAB CHEMISTRY METHOD 07/06/2025 8:47 AM [facility] BUN 14 5 - 25 mg/dL LAB CHEMISTRY METHOD 07/06/2025 8:47 AM [facility] Creatinine 0.48(L) 0.50 - 1.10 mg/dL LAB CHEMISTRY METHOD 07/06/2025 8:47 AM [facility] eGFR 94 >=60 mL/min/1. 73m2 LAB CHEMISTRY METHOD 07/06/2025 8:47 AM [facility] Comment:Calculation based on the Chronic Kidney Disease Epidemiology Collaboration (CKD-EPI) equation refit without adjustment for race. BUN/Creatinine Ratio 29.2 LAB CHEMISTRY METHOD 07/06/2025 8:47 AM [facility] Calcium 8.8 8.5 - 10.5 mg/dL LAB CHEMISTRY METHOD 07/06/2025 8:47 AM [facility] Blood Venous blood specimen / Unknown Venipuncture / Unknown 07/06/2025 6:45 AM EDT 07/06/2025 8:04 AM EDT us Leland Hernandez MD LAB BLOOD ORDERABLES Final Resu lt [facility] [address] [place] [address], [place] [phone] * (ABNORMAL) Complete blood count (07/06/2025 6:45 AM EDT) WBC 8.6 4.8 - 10.8 K/mcL LAB HEMETOLOGY METHOD 07/06/2025 8:27 AM [facility] RBC 3.70(L) 3.80 - 4.80 M/mcL LAB HEMETOLOGY METHOD 07/06/2025 8:27 AM [facility] Hemoglobin 10.4(L) 11.5 - 16.0 g/dL LAB HEMETOLOGY METHOD 07/06/2025 8:27 AM [facility] Hematocrit 33.5(L) 35.0 - 47.0 % LAB HEMETOLOGY METHOD 07/06/2025 8:27 AM [facility] MCV 90.3 79.0 - 98.0 FL LAB HEMETOLOGY METHOD 07/06/2025 8:27 AM [facility] MCH 28.0 27.0 - 32.0 pcg LAB HEMETOLOGY METHOD 07/06/2025 8:27 AM [facility] MCHC 31.0(L) 32.0 - 37.0 g/dL LAB HEMETOLOGY METHOD 07/06/2025 8:27 AM [facility] RDW 16.6(H) 11.0 - 15.0 % LAB HEMETOLOGY METHOD 07/06/2025 8:27 AM [facility] Platelets 547(H) 130 - 400 K/mcL LAB HEMETOLOGY METHOD 07/06/2025 8:27 AM [facility] MPV 9.2 7.0 - 11.0 FL LAB HEMETOLOGY METHOD 07/06/2025 8:27 AM [facility] NRBC 0.0 <1.0 % LAB HEMETOLOGY METHOD 07/06/2025 8:27 AM [facility] NRBC Absolute 0.00 <0.10 K/mcL LAB HEMETOLOGY METHOD 07/06/2025 8:27 AM EDT [facility] Blood Venous blood specimen / Unknown Venipuncture / Unknown 07/06/2025 6:45 AM EDT 07/06/2025 8:04 AM EDT Leland Hernandez MD LAB BLOOD ORDERABLES Final Resu lt [facility] [address] [place] [address], documented in this encounter Visit Diagnoses Diagnosis Essential (primary) hypertension Unspecified essential hypertension documented in this encounter Care Teams Accounts Manager Relationship Specialty Start Date End Date Leland Hernandez MD [address] [place] [address] PCP - General Internal Medicine 06/30/25 documented as of this encounter
--- OUTSIDE RECORDS SUMMARY | 2025-09-01 09:28 | XMS_ITS | Encounter Summary ---
Author Organization [facility] Address [address] [place] [address] Care Team Providers Care Clinical Laboratory Science Professor Name Role Phone Leland Hernandez MD Primary Care Provider [phone] Encounter Details Date Type Department Care Team (Late st Contact Info) Description 06/30/2025 Lab Requisition [facility] - Main Lab [address] [place] [address] Leland Hernandez MD [address] [place] [address] Heart failure, unspecified (CMS/HCC V24, [...] LAB CHEMISTRY METHOD 06/30/2025 11:15 AM EDT [facility] Potassium 4.0 3.5 - 5.5 mmol/L LAB CHEMISTRY METHOD 06/30/2025 11:15 AM [facility] Chloride 103 96 - 110 mmol/L LAB CHEMISTRY METHOD 06/30/2025 11:15 AM [facility] CO2 29 21 - 32 mmol/L LAB CHEMISTRY METHOD 06/30/2025 11:15 AM [facility] Anion Gap 7 3 - 11 LAB CHEMISTRY METHOD 06/30/2025 11:15 AM [facility] Glucose 77 70 - 100 mg/dL LAB CHEMISTRY METHOD 06/30/2025 11:15 AM [facility] BUN 36(H) 5 - 25 mg/dL LAB CHEMISTRY METHOD 06/30/2025 11:15 AM [facility] Creatinine 0.74 0.50 - 1.10 mg/dL LAB CHEMISTRY METHOD 06/30/2025 11:15 AM [facility] eGFR 80 >=60 mL/min/1. 73m2 LAB CHEMISTRY METHOD 06/30/2025 11:15 AM [facility] Comment:Calculation based on the Chronic Kidney Disease Epidemiology Collaboration (CKD-EPI) equation refit without adjustment for race. BUN/Creatinine Ratio 48.6 LAB CHEMISTRY METHOD 06/30/2025 11:15 AM [facility] Calcium 8.5 8.5 - 10.5 mg/dL LAB CHEMISTRY METHOD 06/30/2025 11:15 AM [facility] AST (SGOT) 831(H) 10 - 42 unit/L LAB CHEMISTRY METHOD 06/30/2025 11:15 AM [facility] ALT (SGPT) 492(H) 10 - 60 unit/L LAB CHEMISTRY METHOD 06/30/2025 11:15 AM [facility] Alkaline Phosphatase 160(H) 42 - 121 unit/L LAB CHEMISTRY METHOD 06/30/2025 11:15 AM EDT [facility] Total Protein 5.7(L) 6.0 - 8.0 g/dL LAB CHEMISTRY METHOD 06/30/2025 11:15 AM [facility] Albumin 2.8(L) 3.2 - 5.0 g/dL LAB CHEMISTRY METHOD 06/30/2025 11:15 AM [facility] Total Bilirubin 1.0 0.0 - 1.4 mg/dL LAB CHEMISTRY METHOD 06/30/2025 11:15 AM T [facility] Blood Venous blood specimen / Unknown Venipuncture / Unknown 06/30/2025 5:17 AM EDT 06/30/2025 10:05 AM EDT us Leland Hernandez MD LAB BLOOD ORDERABLES Final Resu lt [facility] [address] [place] [address], * (ABNORMAL) Complete blood count (06/30/2025 5:17 AM EDT) WBC 11.6(H) 4.8 - 10.8 K/mcL LAB HEMETOLOGY METHOD 06/30/2025 10:42 AM [facility] RBC 3.50(L) 3.80 - 4.80 M/mcL LAB HEMETOLOGY METHOD 06/30/2025 10:42 AM T [facility] Hemoglobin 9.7(L) 11.5 - 16.0 g/dL LAB HEMETOLOGY METHOD 06/30/2025 10:42 AM [facility] Hematocrit 30.7(L) 35.0 - 47.0 % LAB HEMETOLOGY METHOD 06/30/2025 10:42 AM [facility] MCV 88.0 79.0 - 98.0 FL LAB HEMETOLOGY METHOD 06/30/2025 10:42 AM EDT [facility] MCH 27.8 27.0 - 32.0 pcg LAB HEMETOLOGY METHOD 06/30/2025 10:42 AM EDT [facility] MCHC 31.6(L) 32.0 - 37.0 g/dL LAB HEMETOLOGY METHOD 06/30/2025 10:42 AM T [facility] RDW 15.3(H) 11.0 - 15.0 % LAB HEMETOLOGY METHOD 06/30/2025 10:42 AM EDT [facility] Platelets 292 130 - 400 K/mcL LAB HEMETOLOGY METHOD 06/30/2025 10:42 AM EDT [facility] MPV 10.3 7.0 - 11.0 FL LAB HEMETOLOGY METHOD 06/30/2025 10:42 AM EDT [facility] NRBC 0.0 <1.0 % LAB HEMETOLOGY METHOD 06/30/2025 10:42 AM EDT [facility] NRBC Absolute 0.00 <0.10 K/mcL LAB HEMETOLOGY METHOD 06/30/2025 10:42 AM T [facility] Blood Venous blood specimen / Unknown Venipuncture / Unknown 06/30/2025 5:17 AM EDT 06/30/2025 10:05 AM EDT us Leland Hernandez MD LAB BLOOD ORDERABLES Final Resu lt [facility] [address] [place] [address], documented in this encounter Visit Diagnoses Diagnosis Heart failure, unspecified (CMS/HCC V24, CMS/HCC V28) Heart failure, unspecified documented in this encounter Care Teams Clinical Laboratory Science Professor Relationship Specialty Start Date End Date Leland Hernandez MD [address] [place] [address] PCP - General Internal Medicine 06/30/25 documented as of this encounter
--- OUTSIDE RECORDS SUMMARY | 2025-09-01 09:28 | XMS_ITS | Encounter Summary ---
Author Organization [facility] Address [address] [place] [address] Care Team Providers Care Job Developer Name Role Phone Leland Hernandez MD Primary Care Provider [phone] Encounter Details Date Type Department Care Team (Late st Contact Info) Description 07/01/2025 Lab Requisition [facility] - Main Lab [address] [facility] [place] [address] Leland Hernandez MD [address] [place] [address] Essential (primary) hypertension Social History [...] LAB CHEMISTRY METHOD 07/04/2025 12:33 PM EDT [facility] Potassium 4.3 3.5 - 5.5 mmol/L LAB CHEMISTRY METHOD 07/04/2025 12:33 PM EDT [facility] Chloride 103 96 - 110 mmol/L LAB CHEMISTRY METHOD 07/04/2025 12:33 PM [facility] CO2 30 21 - 32 mmol/L LAB CHEMISTRY METHOD 07/04/2025 12:33 PM [facility] Anion Gap 8 3 - 11 LAB CHEMISTRY METHOD 07/04/2025 12:33 PM [facility] Glucose 76 70 - 100 mg/dL LAB CHEMISTRY METHOD 07/04/2025 12:33 PM [facility] BUN 14 5 - 25 mg/dL LAB CHEMISTRY METHOD 07/04/2025 12:33 PM [facility] Creatinine 0.55 0.50 - 1.10 mg/dL LAB CHEMISTRY METHOD 07/04/2025 12:33 PM [facility] eGFR 91 >=60 mL/min/1. 73m2 LAB CHEMISTRY METHOD 07/04/2025 12:33 PM [facility] Comment:Calculation based on the Chronic Kidney Disease Epidemiology Collaboration (CKD-EPI) equation refit without adjustment for race. BUN/Creatinine Ratio 25.5 LAB CHEMISTRY METHOD 07/04/2025 12:33 PM [facility] Calcium 8.4(L) 8.5 - 10.5 mg/dL LAB CHEMISTRY METHOD 07/04/2025 12:33 PM [facility] AST (SGOT) 53(H) 10 - 42 unit/L LAB CHEMISTRY METHOD 07/04/2025 12:33 PM [facility] Comment:Results verified by repeat testing ALT (SGPT) 176(H) 10 - 60 unit/L LAB CHEMISTRY METHOD 07/04/2025 12:33 PM [facility] Alkaline Phosphatase 100 42 - 121 unit/L LAB CHEMISTRY METHOD 07/04/2025 12:33 PM [facility] Total Protein 5.9(L) 6.0 - 8.0 g/dL LAB CHEMISTRY METHOD 07/04/2025 12:33 PM EDT [facility] Albumin 2.8(L) 3.2 - 5.0 g/dL LAB CHEMISTRY METHOD 07/04/2025 12:33 PM EDT [facility] Total Bilirubin 1.1 0.0 - 1.4 mg/dL LAB CHEMISTRY METHOD 07/04/2025 12:33 PM T [facility] Blood Venous blood specimen / Unknown Venipuncture / Unknown 07/04/2025 7:54 AM EDT 07/04/2025 10:21 AM EDT us Leland Hernandez MD LAB BLOOD ORDERABLES Final Resu lt [facility] [address] [place] [address], [place] [phone] * (ABNORMAL) Complete blood count (07/04/2025 5:03 AM EDT) WBC 7.9 4.8 - 10.8 K/mcL LAB HEMETOLOGY METHOD 07/04/2025 10:53 AM [facility] RBC 3.60(L) 3.80 - 4.80 M/mcL LAB HEMETOLOGY METHOD 07/04/2025 10:53 AM [facility] Hemoglobin 9.9(L) 11.5 - 16.0 g/dL LAB HEMETOLOGY METHOD 07/04/2025 10:53 AM T [facility] Hematocrit 32.8(L) 35.0 - 47.0 % LAB HEMETOLOGY METHOD 07/04/2025 10:53 AM [facility] MCV 91.6 79.0 - 98.0 FL LAB HEMETOLOGY METHOD 07/04/2025 10:53 AM [facility] MCH 27.7 27.0 - 32.0 pcg LAB HEMETOLOGY METHOD 07/04/2025 10:53 AM EDT [facility] MCHC 30.2(L) 32.0 - 37.0 g/dL LAB HEMETOLOGY METHOD 07/04/2025 10:53 AM EDT [facility] RDW 15.9(H) 11.0 - 15.0 % LAB HEMETOLOGY METHOD 07/04/2025 10:53 AM EDT [facility] Platelets 466(H) 130 - 400 K/mcL LAB HEMETOLOGY METHOD 07/04/2025 10:53 AM EDT [facility] MPV 9.6 7.0 - 11.0 FL LAB HEMETOLOGY METHOD 07/04/2025 10:53 AM EDT [facility] NRBC 0.0 <1.0 % LAB HEMETOLOGY METHOD 07/04/2025 10:53 AM EDT [facility] NRBC Absolute 0.00 <0.10 K/mcL LAB HEMETOLOGY METHOD 07/04/2025 10:53 AM EDT [facility] Blood Venous blood specimen / Unknown Venipuncture / Unknown 07/04/2025 5:03 AM EDT 07/04/2025 10:16 AM EDT Leland Hernandez MD LAB BLOOD ORDERABLES Final Resu lt [facility] [address] [place] [address], documented in this encounter Visit Diagnoses Diagnosis Essential (primary) hypertension Unspecified essential hypertension documented in this encounter Care Teams Job Developer Relationship Specialty Start Date End Date Leland Hernandez MD [address] [place] [address] PCP - General Internal Medicine 06/30/25 documented as of this encounter
--- OUTSIDE RECORDS SUMMARY | 2025-09-01 09:28 | XMS_ITS | Clinical Summary ---
Author Organization [address] Address [address] [place] [address] Phone Care Team Providers Care Firmware Test Engineer Name Role Phone Leland Hernandez MD Primary Care Provider [phone] Encounters Date Type Department Care Team Description 07/15/2025 Lab Requisition [facility] [address] [place] [address] Leland Hernandez MD Essential (primary) hypertension 07/08/2025 Lab Requisition [facility] [address] [place] [address] Leland Hernandez MD Essential (primary) hypertension 07/05/2025 Lab Requisition [facility] [address] [place] [address] Leland Hernandez MD Essential (primary) hypertension 07/01/2025 Lab Requisition [facility] [address] [place] [address] Leland Hernandez MD Essential (primary) hypertension 06/30/2025 Lab Requisition [facility] [address] [place] [address] Leland Hernandez MD Heart failure, unspecified (CMS/HCC [...] of Health Screening 06/30/2025 COVID-19 Vaccine ( - season) 2025 Influenza Vaccine (#1) 2025 Hypertension/CHF/CAD [...] of4 resultswithin the time period is included. [facility] WBC 7.7 4.8 - 10.8 K/mcL LAB HEMETOLOGY METHOD 07/10/2025 10:39 AM [facility] RBC 3.70(L) 3.80 - 4.80 M/mcL LAB HEMETOLOGY METHOD 07/10/2025 10:39 AM [facility] Hemoglobin 10.6(L) 11.5 - 16.0 g/dL LAB HEMETOLOGY METHOD 07/10/2025 10:39 AM [facility] Hematocrit 34.8(L) 35.0 - 47.0 % LAB HEMETOLOGY METHOD 07/10/2025 10:39 AM [facility] MCV 93.3 79.0 - 98.0 FL LAB HEMETOLOGY METHOD 07/10/2025 10:39 AM [facility] MCH 28.4 27.0 - 32.0 pcg LAB HEMETOLOGY METHOD 07/10/2025 10:39 AM EDT [facility] MCHC 30.5(L) 32.0 - 37.0 g/dL LAB HEMETOLOGY METHOD 07/10/2025 10:39 AM EDT [facility] RDW 17.6(H) 11.0 - 15.0 % LAB HEMETOLOGY METHOD 07/10/2025 10:39 AM EDT [facility] Platelets 596(H) 130 - 400 K/mcL LAB HEMETOLOGY METHOD 07/10/2025 10:39 AM EDT [facility] MPV 9.5 7.0 - 11.0 FL LAB HEMETOLOGY METHOD 07/10/2025 10:39 AM EDT [facility] NRBC 0.0 <1.0 % LAB HEMETOLOGY METHOD 07/10/2025 10:39 AM EDT [facility] NRBC Absolute 0.00 <0.10 K/mcL LAB HEMETOLOGY METHOD 07/10/2025 10:39 AM EDT [facility] Blood Venous blood specimen / Unknown Venipuncture / Unknown 07/10/2025 4:47 AM EDT 07/10/2025 10:23 AM EDT us Leland Hernandez MD LAB BLOOD ORDERABLES Final Resu lt [facility] [address] [place] [address], * (ABNORMAL) Comprehensive metabolic panel (07/10/2025 4:47 AM EDT) Only the most recent of3 resultswithin the time period is included. Sodium 142 133 - 145 mmol/L LAB CHEMISTRY METHOD 07/10/2025 11:16 AM EDT [facility] Potassium 4.5 3.5 - 5.5 mmol/L LAB CHEMISTRY METHOD 07/10/2025 11:16 AM [facility] Chloride 103 96 - 110 mmol/L LAB CHEMISTRY METHOD 07/10/2025 11:16 AM [facility] CO2 32 21 - 32 mmol/L LAB CHEMISTRY METHOD 07/10/2025 11:16 AM [facility] Anion Gap 7 3 - 11 LAB CHEMISTRY METHOD 07/10/2025 11:16 AM [facility] Glucose 63(L) 70 - 100 mg/dL LAB CHEMISTRY METHOD 07/10/2025 11:16 AM [facility] BUN 16 5 - 25 mg/dL LAB CHEMISTRY METHOD 07/10/2025 11:16 AM [facility] Creatinine 0.67 0.50 - 1.10 mg/dL LAB CHEMISTRY METHOD 07/10/2025 11:16 AM [facility] eGFR 87 >=60 mL/min/1. 73m2 LAB CHEMISTRY METHOD 07/10/2025 11:16 AM [facility] Comment:Calculation based on the Chronic Kidney Disease Epidemiology Collaboration (CKD-EPI) equation refit without adjustment for race. BUN/Creatinine Ratio 23.9 LAB CHEMISTRY METHOD 07/10/2025 11:16 AM [facility] Calcium 9.0 8.5 - 10.5 mg/dL LAB CHEMISTRY METHOD 07/10/2025 11:16 AM [facility] AST (SGOT) 23 10 - 42 unit/L LAB CHEMISTRY METHOD 07/10/2025 11:16 AM [facility] ALT (SGPT) 39 10 - 60 unit/L LAB CHEMISTRY METHOD 07/10/2025 11:16 AM [facility] Alkaline Phosphatase 107 42 - 121 unit/L LAB CHEMISTRY METHOD 07/10/2025 11:16 AM [facility] Total Protein 5.8(L) 6.0 - 8.0 g/dL LAB CHEMISTRY METHOD 07/10/2025 11:16 AM EDT [facility] Albumin 3.0(L) 3.2 - 5.0 g/dL LAB CHEMISTRY METHOD 07/10/2025 11:16 AM [facility] Total Bilirubin 0.8 0.0 - 1.4 mg/dL LAB CHEMISTRY METHOD 07/10/2025 11:16 AM [facility] Blood Venous blood specimen / Unknown Venipuncture / Unknown 07/10/2025 4:47 AM EDT 07/10/2025 10:23 AM EDT us Leland Hernandez MD LAB BLOOD ORDERABLES Final Resu lt [facility] [address] [place] [address], [place] [phone] * (ABNORMAL) Basic metabolic panel (07/06/2025 6:45 AM EDT) Sodium 141 133 - 145 mmol/L LAB CHEMISTRY METHOD 07/06/2025 8:47 AM [facility] Potassium 4.2 3.5 - 5.5 mmol/L LAB CHEMISTRY METHOD 07/06/2025 8:47 AM [facility] Chloride 106 96 - 110 mmol/L LAB CHEMISTRY METHOD 07/06/2025 8:47 AM [facility] CO2 30 21 - 32 mmol/L LAB CHEMISTRY METHOD 07/06/2025 8:47 AM [facility] Anion Gap 5 3 - 11 LAB CHEMISTRY METHOD 07/06/2025 8:47 AM [facility] Glucose 85 70 - 100 mg/dL LAB CHEMISTRY METHOD 07/06/2025 8:47 AM [facility] BUN 14 5 - 25 mg/dL LAB CHEMISTRY METHOD 07/06/2025 8:47 AM [facility] Creatinine 0.48(L) 0.50 - 1.10 mg/dL LAB CHEMISTRY METHOD 07/06/2025 8:47 AM EDT [facility] eGFR 94 >=60 mL/min/1. 73m2 LAB CHEMISTRY METHOD 07/06/2025 8:47 AM EDT [facility] Comment:Calculation based on the Chronic Kidney Disease Epidemiology Collaboration (CKD-EPI) equation refit without adjustment for race. BUN/Creatinine Ratio 29.2 LAB CHEMISTRY METHOD 07/06/2025 8:47 AM EDT [facility] Calcium 8.8 8.5 - 10.5 mg/dL LAB CHEMISTRY METHOD 07/06/2025 8:47 AM EDT [facility] Blood Venous blood specimen / Unknown Venipuncture / Unknown 07/06/2025 6:45 AM EDT 07/06/2025 8:04 AM EDT us Leland Hernandez MD LAB BLOOD ORDERABLES Final Resu lt [facility] [address] [place] [address], [place] [phone] from Last 3 Months Insurance MEDICARE [facility] Care Teams Firmware Test Engineer Relationship Specialty Start Date End Date Leland Hernandez MD [address] [place] [phone] PCP - General Internal Medicine 06/30/25
--- OUTSIDE RECORDS SUMMARY | 2025-09-01 09:28 | XMS_ITS | Encounter Summary ---
Author Organization [facility] Address [address] [place] [address] Care Team Providers Care Convex Grinder Name Role Phone Leland Hernandez MD Primary Care Provider [phone] Encounter Details Date Type Department Care Team (Late st Contact Info) Description 07/15/2025 Lab Requisition [facility] - Main Lab [address] [facility] [place] [address] Leland Hernandez MD [address] [place] [address] Essential (primary) hypertension Social History [...] on file documented as of this encounter Visit Diagnoses Diagnosis Essential (primary) hypertension Unspecified essential hypertension documented in this encounter Care Teams Convex Grinder Relationship Specialty Start Date End Date Leland Hernandez MD [address] [place] [address] PCP - General Internal Medicine 06/30/25 documented as of this encounter
--- OUTSIDE RECORDS SUMMARY | 2025-09-13 20:00 | XMS_ITS | Clinical Summary ---
Author Organization Unknown Care Team Providers Care Cath Lab Technologist Name Role Phone EMMETT DAMON, AVNI Unavailable Unavailallen FINLEY RN, FLORA Unavailable Unavailab simon CREWS PT, GELA Unavailable Unavailallen BERNAL SEALER DRY CELL, CHI Unavailable Unavailable READING OT, NIKOLAS Unavailable Unavailable PENDJENN SCREENER AND BLENDER OPERATOR, MAMTA Unavailable Unavailable Payers Payer Name Policy Type Policy Number Effective Date Expira tion Date MEDICARE.NGS.PDGM [id number] Problems Condition Name Condition Details Condition Category [...] SCOLIOSIS, THORACIC REGION Active 07-17 00:00: 00 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 07-17 00:00: [...] tablet,wyatt yed release 07-10 00:00: 00 Yes [id number] GERD 1 tablet EVERY 1 tablet EVERY (route: oral) Med Classific ation: Gastroint estinal Therapy Agents amlodipine 5 mg tablet 07-17 00:00: 00 Yes [id number] BLOOD PRESSURE 1 tablet DAILY 1 tablet DAILY (route: oral) Med Classific ation: Cardiovas cular Therapy Agents iron, carbonyl 45 mg tablet 07-17 00:00: 00 07-18 15:13 :05.1 83 No [id number] IRON 1 tablet DAILY 1 tablet DAILY (route: oral) Med Classific ation: Electroly te Balance-N utritiona l Products metoprolol tartrate 25 mg tablet 07-17 00:00: 00 07-18 15:11 :46.3 07 No [id number] HEART RATE 1 tablet 2 TIMES DAILY 1 tablet 2 TIMES DAILY (route: oral) Med Classific ation: Cardiovas cular Therapy Agents Vitamin D3 25 mcg (1,000 unit) capsule 07-17 00:00: 00 Yes [id number] VITAMIN 1 capsule DAILY 1 capsule DAILY (route: oral) Med Classific ation: Electroly te Balance-N utritiona l Products aspirin 325 mg tablet 07-18 00:00: 00 08-29 23:59 :00 No [id number] blood thinner 1 tablet 2 TIMES DAILY 1 tablet 2 TIMES DAILY (route: oral) Med Classific ation: Analgesic , Anti-infl ammatory or Antipyret ic metoprolol succinate ER 25 mg tablet,exte nded release 24 hr 07-18 00:00: 00 Yes [id number] blood pressure 1 tablet DAILY 1 tablet DAILY (route: oral) Med Classific ation: Cardiovas cular Therapy Agents FeroSul 325 mg (65 mg iron) tablet 07-18 00:00: 00 Yes [id number] supplement 1 tablet DAILY 1 tablet DAILY (route: oral) Med Classific ation: Electroly te Balance-N utritiona l Products DICLOFENAC SODIUM TOPICAL 31 00:00: 00 04-04 00:00 :00 No 3 % 3 % (route: ) Med Classific ation: DERMATOLO GICAL FERROUS SULFATE ORAL 03-10 00:00: 00 04-04 00:00 :00 No 325 mg (65 mg iron)ON E TABLET THREE TIMES A DAY 325 mg (65 mg iron)ONE TABLET THREE TIMES A DAY (route: ) Med Classific ation: ELECTROLY TE BALANCE-N UTRITIONA L PRODUCTS AMOXICILLIN ORAL 02-05 00:00: 00 04-04 00:00 :00 No 875 mg1 TABLET TWICE TWICE DAILY IN THE MORNING IN THE EVENIN 875 mg1 TABLET TWICE TWICE DAILY IN THE MORNING IN THE EVENIN (route: ) Med Classific ation: ANTI-INFE CTIVE AGENTS Vital Signs Vital Name Observation Time Observation [...] TION MANAGEMENT; RN TO ASSESS AND OBSERVE, SCREENER AND BLENDER OPERATOR/OPERATOR SUPPLY TO OBSERVE FALL RISK FACTORS AND EDUCATE PATIENT/CAREGIVER ON STRATEGIES TO MINIMIZE THE RISK OF FALLING. [code = FALL REDUCTION MANAGEMENT; RN TO ASSESS AND OBSERVE, SCREENER AND BLENDER OPERATOR/OPERATOR SUPPLY TO OBSERVE FALL RISK FACTORS AND EDUCATE PATIENT/CAREGIVER ON STRATEGIES TO MINIMIZE THE RISK OF FALLING.] Future Scheduled Test RN TO OBSE RVE, ASSESS, EVALUATE, AND DEVELOP AN INDIVIDUALIZED PLAN OF CARE. AGENCY MAY ACCEPT ORDERS FROM CONSULTING PHYSICIANS. RN TO OBSERVE AND ASSESS, SCREENER AND BLENDER OPERATOR/OPERATOR SUPPLY TO OBSERVE FOR RISK FOR FALLS AND INSTRUCT IN FALL PREVENTION, HOME SAFETY, MEDICATION MANAGEMENT, INFECTION PREVENTION, AND NUTRITION MANAGEMENT. RN/SCREENER AND BLENDER OPERATOR/OPERATOR SUPPLY NURSE MAY PERFORM O2 SATURATION LEVEL ON ADMISSION AND PRN FOR RN TO ASSESS/SCREENER AND BLENDER OPERATOR TO OBSERVE PATIENT, WITH NOTIFICATION TO THE PHYSICIAN IF SATURATION IS 90% IN THE ABSENCE OF MORE SPECIFIC PARAMETERS FROM THE PHYSICIAN. AGENCY MAY PERFORM A RESUMPTION OF CARE VISIT FOLLOWING ANY HOSPITAL ADMISSION. RN/SCREENER AND BLENDER OPERATOR/OPERATOR SUPPLY TO MONITOR CO-MORBID CONDITIONS LISTED ON THE PLAN OF CARE AND ANY NEW CONDITIONS THAT PRESENT THEMSELVES DURING THIS EPISODE TO IDENTIFY CHANGES AND INTERVENE TO MINIMIZE COMPLICATIONS. [code = RN TO OBSERVE, ASSESS, EVALUATE, AND DEVELOP AN INDIVIDUALIZED PLAN OF CARE. AGENCY MAY ACCEPT ORDERS FROM CONSULTING PHYSICIANS. RN TO OBSERVE AND ASSESS, SCREENER AND BLENDER OPERATOR/OPERATOR SUPPLY TO OBSERVE FOR RISK FOR FALLS AND INSTRUCT IN FALL PREVENTION, HOME SAFETY, MEDICATION MANAGEMENT, INFECTION PREVENTION, AND NUTRITION MANAGEMENT. RN/SCREENER AND BLENDER OPERATOR/OPERATOR SUPPLY NURSE MAY PERFORM O2 SATURATION LEVEL ON ADMISSION AND PRN FOR RN TO ASSESS/SCREENER AND BLENDER OPERATOR TO OBSERVE PATIENT, WITH NOTIFICATION TO THE PHYSICIAN IF SATURATION IS 90% IN THE ABSENCE OF MORE SPECIFIC PARAMETERS FROM THE PHYSICIAN. AGENCY MAY PERFORM A RESUMPTION OF CARE VISIT FOLLOWING ANY HOSPITAL ADMISSION. RN/SCREENER AND BLENDER OPERATOR/OPERATOR SUPPLY TO MONITOR CO-MORBID CONDITIONS LISTED ON THE PLAN OF CARE AND ANY NEW CONDITIONS THAT PRESENT THEMSELVES DURING THIS EPISODE TO IDENTIFY CHANGES AND INTERVENE TO MINIMIZE COMPLICATIONS.] Future Scheduled Test PAIN MANAG EMENT; RN TO ASSESS AND TEACH, OPERATOR SUPPLY/SCREENER AND BLENDER OPERATOR TO OBSERVE AND TEACH AND PROVIDE EDUCATION ON PAIN MANAGEMENT TECHNIQUES. [code = PAIN MANAGEMENT; RN TO ASSESS AND TEACH, OPERATOR SUPPLY/SCREENER AND BLENDER OPERATOR TO OBSERVE AND TEACH AND PROVIDE EDUCATION ON PAIN MANAGEMENT TECHNIQUES.] Future Scheduled Test RISK FOR H OSPITALIZATION; RN TO ASSESS/TEACH, OPERATOR SUPPLY/SCREENER AND BLENDER OPERATOR TO OBSERVE/TEACH PATIENT/CAREGIVER ON RISK FOR HOSPITALIZATION/EMERGENCY ROOM VISITS, TEACH SIGNS AND SYMPTOMS THAT PUT PATIENT AT RISK, WHEN TO NOTIFY NURSE/PHYSICIAN OF COMPLICATIONS/DECLINE, AND WHEN TO CALL 911. [code = RISK FOR HOSPITALIZATION; RN TO ASSESS/TEACH, OPERATOR SUPPLY/SCREENER AND BLENDER OPERATOR TO OBSERVE/TEACH PATIENT/CAREGIVER ON RISK FOR HOSPITALIZATION/EMERGENCY ROOM VISITS, TEACH SIGNS AND SYMPTOMS THAT PUT PATIENT AT RISK, WHEN TO NOTIFY NURSE/PHYSICIAN OF COMPLICATIONS/DECLINE, AND WHEN TO CALL 911.] Future Scheduled Test CARDIOVASC ULAR SYSTEM; RN TO ASSESS/TEACH, SCREENER AND BLENDER OPERATOR/OPERATOR SUPPLY TO OBSERVE/TEACH RELATED TO ALTERED CARDIOVASCULAR STATUS TO MINIMIZE COMPLICATIONS AND REDUCE HOSPITALIZATION. [code = CARDIOVASCULAR SYSTEM; RN TO ASSESS/TEACH, SCREENER AND BLENDER OPERATOR/OPERATOR SUPPLY TO OBSERVE/TEACH RELATED TO ALTERED CARDIOVASCULAR STATUS TO MINIMIZE COMPLICATIONS AND REDUCE HOSPITALIZATION.] Future Scheduled Test HYPERTENSI ON MANAGEMENT; RN TO ASSESS AND TEACH, SCREENER AND BLENDER OPERATOR/OPERATOR SUPPLY TO OBSERVE AND TEACH WARNING SIGNS AND SYMPTOMS TO AVOID HOSPITALIZATION. [code = HYPERTENSION MANAGEMENT; RN TO ASSESS AND TEACH, SCREENER AND BLENDER OPERATOR/OPERATOR SUPPLY TO OBSERVE AND TEACH WARNING SIGNS AND SYMPTOMS TO AVOID HOSPITALIZATION.] Future Scheduled Test RN TO ASSE SS/TEACH, SCREENER AND BLENDER OPERATOR/OPERATOR SUPPLY TO OBSERVE/TEACH SURGICAL AFTERCARE MANAGEMENT TO AVOID HOSPITALIZATION. [code = RN TO ASSESS/TEACH, SCREENER AND BLENDER OPERATOR/OPERATOR SUPPLY TO OBSERVE/TEACH SURGICAL AFTERCARE MANAGEMENT TO AVOID HOSPITALIZATION.] Future Scheduled Test AGENCY MAY PERFORM A RESUMPTION OF CARE VISIT FOLLOWING ANY HOSPITAL ADMISSION. OT TO EVALUATE, OBSERVE / ASSESS, AND MONITOR, CLAIMS ACCOUNT SPECIALIST TO OBSERVE AND MONITOR, PROVIDE SKILLED THERAPEUTIC INTERVENTION, ACTIVITY, EDUCATION, AND TRAINING TO ADDRESS; ACTIVITIES OF DAILY LIVING (OT/CLAIMS ACCOUNT SPECIALIST) MEAL PREPARATION AND CLEANUP (OT/CLAIMS ACCOUNT SPECIALIST) HOME ACTIVITY / EXERCISE PROGRAM (OT/CHRISTOPHER) POSTURAL CONTROL/BALANCE (OT/CLAIMS ACCOUNT SPECIALIST) THERAPEUTIC EXERCISE (OT/CLAIMS ACCOUNT SPECIALIST) OT/CHRISTOPHER TO MONITOR AND EDUCATE ON OXYGEN SATURATION DURING ADLS/IADLS, NOTIFY PHYSICIAN AND/OR THE RN CLINICAL ELECTORAL OFFICER FOR PHYSICIAN NOTIFICATION AND IF O2 SATS BELOW 90% AFTER 10 MIN OF REST. OT/CLAIMS ACCOUNT SPECIALIST MAY EDUCATE ON PAIN MANAGEMENT CLINICALLY INDICATED. OT / CLAIMS ACCOUNT SPECIALIST TO IDENTIFY FALL RISK FACTORS; EDUCATE THE PATIENT/CAREGIVER ON WAYS TO REDUCE FALL RISK FACTORS AND ESTABLISH HOME EXERCISE PROGRAM TO MINIMIZE FALL RISK. MAY TEACH THE PATIENT FLOOR RECOVERY WHEN CLINICALLY APPROPRIATE. OT/CLAIMS ACCOUNT SPECIALIST TO EDUCATE ON FEMUR FRACTURE /ORIF SELF MANAGEMENT [code = AGENCY MAY PERFORM A RESUMPTION OF CARE VISIT FOLLOWING ANY HOSPITAL ADMISSION. OT TO EVALUATE, OBSERVE / ASSESS, AND MONITOR, CHRISTOPHER TO OBSERVE AND MONITOR, PROVIDE SKILLED THERAPEUTIC INTERVENTION, ACTIVITY, EDUCATION, AND TRAINING TO ADDRESS; ACTIVITIES OF DAILY LIVING (OT/CHRISTOPHER) MEAL PREPARATION AND CLEANUP (OT/CHRISTOPHER) HOME ACTIVITY / EXERCISE PROGRAM (OT/CHRISTOPHER) POSTURAL CONTROL/BALANCE (OT/CLAIMS ACCOUNT SPECIALIST) THERAPEUTIC EXERCISE (OT/CLAIMS ACCOUNT SPECIALIST) OT/CHRISTOPHER TO MONITOR AND EDUCATE ON OXYGEN SATURATION DURING ADLS/IADLS, NOTIFY PHYSICIAN AND/OR THE RN CLINICAL ELECTORAL OFFICER FOR PHYSICIAN NOTIFICATION AND IF O2 SATS BELOW 90% AFTER 10 MIN OF REST. OT/CLAIMS ACCOUNT SPECIALIST MAY EDUCATE ON PAIN MANAGEMENT CLINICALLY INDICATED. OT / CHRISTOPHER TO IDENTIFY FALL RISK FACTORS; EDUCATE THE PATIENT/CAREGIVER ON WAYS TO REDUCE FALL RISK FACTORS AND ESTABLISH HOME EXERCISE PROGRAM TO MINIMIZE FALL RISK. MAY TEACH THE PATIENT FLOOR RECOVERY WHEN CLINICALLY APPROPRIATE. OT/CLAIMS ACCOUNT SPECIALIST TO EDUCATE ON FEMUR FRACTURE /ORIF SELF MANAGEMENT] Future Scheduled Test AGENCY MAY PERFORM A RESUMPTION OF CARE VISIT FOLLOWING ANY HOSPITAL ADMISSION. PT TO EVALUATE, OBSERVE / ASSESS, AND MONITOR, SEALER DRY CELL TO OBSERVE AND MONITOR, PROVIDE SKILLED THERAPEUTIC INTERVENTION, ACTIVITY, EDUCATION, AND TRAINING TO ADDRESS; PT/SEALER DRY CELL TO PROVIDE GAIT TRAINING FOR IMPROVED MOBILITY AND /OR TO NORMALIZE GAIT PATTERN NEUROMUSCULAR RE-EDUCATION / BALANCE / POSTURAL CONTROL (PT) THERAPEUTIC EXERCISES AND ESTABLISHING A HOME EXERCISE PROGRAM (PT/SEALER DRY CELL) PT/SEALER DRY CELL TO PROVIDE STAIR TRAINING SIT TO/FROM STAND TRANSFERS (PT/SEALER DRY CELL) PT TO ASSESS / SEALER DRY CELL TO MONITOR FOR AND REPORT EARLY SIGNS OF ANTICOAGULANT TOXICITY TO THE PHYSICIAN AND/OR THE RN CLINICAL ELECTORAL OFFICER FOR PHYSICIAN NOTIFICATION AND TO PROVIDE PATIENT/CAREGIVER EDUCATION ON ANTICOAGULANT THERAPY PT / SEALER DRY CELL TO MONITOR AND EDUCATE ON OXYGEN SATURATION DURING ADLS/IADLS, NOTIFY PHYSICIAN AND/OR THE RN CLINICAL ELECTORAL OFFICER FOR PHYSICIAN NOTIFICATION AND IF O2 SATS BELOW PHYSICIAN ORDERED PARAMETERS AFTER 10 MIN OF REST PT/SEALER DRY CELL TO EDUCATE ON FEMUR FRACTURE /ORIF SELF-MANAGEMENT. PT/SEALER DRY CELL TO IDENTIFY FALL RISK FACTORS; EDUCATE THE PATIENT/CAREGIVER ON WAYS TO REDUCE FALL RISK FACTORS AND ESTABLISH HOME EXERCISE PROGRAM TO MINIMIZE FALL RISK. MAY TEACH THE PATIENT FLOOR RECOVERY WHEN CLINICALLY APPROPRIATE PT / SEALER DRY CELL MAY EDUCATE ON PAIN MANAGEMENT CLINICALLY INDICATED, INCLUDING NON-PHARMACOLOGICAL PAIN REDUCTION TECHNIQUES [code = AGENCY MAY PERFORM A RESUMPTION OF CARE VISIT FOLLOWING ANY HOSPITAL ADMISSION. PT TO EVALUATE, OBSERVE / ASSESS, AND MONITOR, SEALER DRY CELL TO OBSERVE AND MONITOR, PROVIDE SKILLED THERAPEUTIC INTERVENTION, ACTIVITY, EDUCATION, AND TRAINING TO ADDRESS; PT/SEALER DRY CELL TO PROVIDE GAIT TRAINING FOR IMPROVED MOBILITY AND /OR TO NORMALIZE GAIT PATTERN NEUROMUSCULAR RE-EDUCATION / BALANCE / POSTURAL CONTROL (PT) THERAPEUTIC EXERCISES AND ESTABLISHING A HOME EXERCISE PROGRAM (PT/SEALER DRY CELL) PT/SEALER DRY CELL TO PROVIDE STAIR TRAINING SIT TO/FROM STAND TRANSFERS (PT/SEALER DRY CELL) PT TO ASSESS / SEALER DRY CELL TO MONITOR FOR AND REPORT EARLY SIGNS OF ANTICOAGULANT TOXICITY TO THE PHYSICIAN AND/OR THE RN CLINICAL ELECTORAL OFFICER FOR PHYSICIAN NOTIFICATION AND TO PROVIDE PATIENT/CAREGIVER EDUCATION ON ANTICOAGULANT THERAPY PT / SEALER DRY CELL TO MONITOR AND EDUCATE ON OXYGEN SATURATION DURING ADLS/IADLS, NOTIFY PHYSICIAN AND/OR THE RN CLINICAL ELECTORAL OFFICER FOR PHYSICIAN NOTIFICATION AND IF O2 SATS BELOW PHYSICIAN ORDERED PARAMETERS AFTER 10 MIN OF REST PT/SEALER DRY CELL TO EDUCATE ON FEMUR FRACTURE /ORIF SELF-MANAGEMENT. PT/SEALER DRY CELL TO IDENTIFY FALL RISK FACTORS; EDUCATE THE PATIENT/CAREGIVER ON WAYS TO REDUCE FALL RISK FACTORS AND ESTABLISH HOME EXERCISE PROGRAM TO MINIMIZE FALL RISK. MAY TEACH THE PATIENT FLOOR RECOVERY WHEN CLINICALLY APPROPRIATE PT / SEALER DRY CELL MAY EDUCATE ON PAIN MANAGEMENT CLINICALLY INDICATED, [...] End Date/Time Encounter Type Admission Type Attending [facility] Care Department Encounter ID Discharge Date Discharge Status Discharge Condition Discharge Reason Percent Goals Met 2025 00:00:00 2025-09-14 00:00:00 Outpatient FLORA KAUFFMAN [facility] [id number] 22.22
== END 2025-09-01 09:56 | disposition home or self-care (01) ==
LOC: HO.HOS 08:55
PROVIDERS: PCP Internal Medicine; Visit Provider Physician Assistant
DX: S72.142A Displaced intertrochanteric fracture of left femur, initial encounter for closed fracture (principal)
CPT/HCPCS: 99024

== ENCOUNTER → 2025-09-01 09:01 | Outpatient (BNV) | payer MEDICARE, SELFPAY | PROVIDERS: Visit Provider Radiology Diagnostic Radiology | DX: M79.605 Pain in left leg (principal) | CPT/HCPCS: 73552 ==

== ENCOUNTER 2025-09-01 09:50 | Outpatient (REF) | payer MEDICARE, SELFPAY ==
[2025-09-01 11:35] LABS: Alanine Aminotransferase 21 U/L (0-31); Albumin Level 4.4 g/dL (3.5-5.0); Alkaline Phosphatase 101 U/L (39-117); Aspartate Amino Transferase 28 U/L (5-31); Total Protein 7.6 g/dL (6.5-8.0)
== END 2025-09-01 09:51 | disposition home or self-care (01) ==
LOC: HO.LAB 09:50
PROVIDERS: Visit Provider Physician Assistant
DX: Z13.89 Encounter for screening for other disorder (principal)
CPT/HCPCS: 36415; 80076

== ENCOUNTER 2025-09-01 14:35 | Outpatient (REF) | payer MEDICARE, SELFPAY ==
--- NOTE | ~2025-09-01 | XR_ITS ---
EXAMINATION: XR FEMUR, LEFT CLINICAL INFORMATION: M79.606 - Pain in leg, unspecified COMPARISON: July 14, 2025. TECHNIQUE: AP and lateral views of the left femur were obtained. FINDINGS: Metallic hardware placed with a transfemoral head neck and intramedullary [place] in the proximal femur. There is a callus formation in the intertrochanteric region/lesser trochanter. No gross loosening. Osteopenia versus osteoporosis. No acute cortical disruption. Bicompartmental osteoarthrosis/osteoarthritis, left knee. No subcutaneous emphysema. Vascular calcifications. XR/XR femur LT 2V IMPRESSION: Status post open reduction internal fixation a healed intertrochanteric fracture, left femur. Osteopenia versus osteoporosis. No acute fracture. Electronically signed by: Jose Taveras MD 09/01/2025 09:38 AM EDT
--- OUTSIDE RECORDS SUMMARY | 2025-09-03 14:38 | XMS_ITS | Encounter Summary ---
Author Organization [facility] Address [address] [place] [address] Care Team Providers Care Tool Grinder Name Role Phone Leland Hernandez MD Primary Care Provider [phone] Encounter Details Date Type Department Care Team (Late st Contact Info) Description 07/05/2025 Lab Requisition [facility] - Main Lab [address] [facility] [place] [address] Leland Hernandez MD [address] [place] [address] Essential (primary) hypertension Social History [...] LAB CHEMISTRY METHOD 07/06/2025 8:47 AM EDT [facility] Potassium 4.2 3.5 - 5.5 mmol/L LAB CHEMISTRY METHOD 07/06/2025 8:47 AM EDT [facility] Chloride 106 96 - 110 mmol/L LAB CHEMISTRY METHOD 07/06/2025 8:47 AM [facility] CO2 30 21 - 32 mmol/L LAB CHEMISTRY METHOD 07/06/2025 8:47 AM [facility] Anion Gap 5 3 - 11 LAB CHEMISTRY METHOD 07/06/2025 8:47 AM [facility] Glucose 85 70 - 100 mg/dL LAB CHEMISTRY METHOD 07/06/2025 8:47 AM [facility] BUN 14 5 - 25 mg/dL LAB CHEMISTRY METHOD 07/06/2025 8:47 AM [facility] Creatinine 0.48(L) 0.50 - 1.10 mg/dL LAB CHEMISTRY METHOD 07/06/2025 8:47 AM [facility] eGFR 94 >=60 mL/min/1. 73m2 LAB CHEMISTRY METHOD 07/06/2025 8:47 AM [facility] Comment:Calculation based on the Chronic Kidney Disease Epidemiology Collaboration (CKD-EPI) equation refit without adjustment for race. BUN/Creatinine Ratio 29.2 LAB CHEMISTRY METHOD 07/06/2025 8:47 AM [facility] Calcium 8.8 8.5 - 10.5 mg/dL LAB CHEMISTRY METHOD 07/06/2025 8:47 AM [facility] Blood Venous blood specimen / Unknown Venipuncture / Unknown 07/06/2025 6:45 AM EDT 07/06/2025 8:04 AM EDT us Leland Hernandez MD LAB BLOOD ORDERABLES Final Resu lt [facility] [address] [place] [address], [place] [phone] * (ABNORMAL) Complete blood count (07/06/2025 6:45 AM EDT) WBC 8.6 4.8 - 10.8 K/mcL LAB HEMETOLOGY METHOD 07/06/2025 8:27 AM [facility] RBC 3.70(L) 3.80 - 4.80 M/mcL LAB HEMETOLOGY METHOD 07/06/2025 8:27 AM [facility] Hemoglobin 10.4(L) 11.5 - 16.0 g/dL LAB HEMETOLOGY METHOD 07/06/2025 8:27 AM [facility] Hematocrit 33.5(L) 35.0 - 47.0 % LAB HEMETOLOGY METHOD 07/06/2025 8:27 AM [facility] MCV 90.3 79.0 - 98.0 FL LAB HEMETOLOGY METHOD 07/06/2025 8:27 AM [facility] MCH 28.0 27.0 - 32.0 pcg LAB HEMETOLOGY METHOD 07/06/2025 8:27 AM [facility] MCHC 31.0(L) 32.0 - 37.0 g/dL LAB HEMETOLOGY METHOD 07/06/2025 8:27 AM [facility] RDW 16.6(H) 11.0 - 15.0 % LAB HEMETOLOGY METHOD 07/06/2025 8:27 AM [facility] Platelets 547(H) 130 - 400 K/mcL LAB HEMETOLOGY METHOD 07/06/2025 8:27 AM [facility] MPV 9.2 7.0 - 11.0 FL LAB HEMETOLOGY METHOD 07/06/2025 8:27 AM [facility] NRBC 0.0 <1.0 % LAB HEMETOLOGY METHOD 07/06/2025 8:27 AM [facility] NRBC Absolute 0.00 <0.10 K/mcL LAB HEMETOLOGY METHOD 07/06/2025 8:27 AM EDT [facility] Blood Venous blood specimen / Unknown Venipuncture / Unknown 07/06/2025 6:45 AM EDT 07/06/2025 8:04 AM EDT Leland Hernandez MD LAB BLOOD ORDERABLES Final Resu lt [facility] [address] [place] [address], documented in this encounter Visit Diagnoses Diagnosis Essential (primary) hypertension Unspecified essential hypertension documented in this encounter Care Teams Tool Grinder Relationship Specialty Start Date End Date Leland Hernandez MD [address] [place] [address] PCP - General Internal Medicine 06/30/25 documented as of this encounter
--- OUTSIDE RECORDS SUMMARY | 2025-09-03 14:38 | XMS_ITS | Encounter Summary ---
Author Organization [facility] Address [address] [place] [phone] Care Team Providers Care Geothermal Field Technician Name Role Phone Leland Hernandez MD Primary Care Provider [phone] Encounter Details Date Type Department Care Team (Late st Contact Info) Description 07/15/2025 Lab Requisition [facility] - Main Lab [address] [facility] [place] [address] Leland Hernandez MD [address] [place] [address] Essential (primary) hypertension Social History [...] hypertension documented in this encounter Care Teams Geothermal Field Technician Relationship Specialty Start Date End Date Leland Hernandez MD [address] [place] [address] PCP - General Internal Medicine 06/30/25 documented as of this encounter
--- OUTSIDE RECORDS SUMMARY | 2025-09-03 14:38 | XMS_ITS | Encounter Summary ---
Author Organization [facility] Address [address] [place] [address] Care Team Providers Care Power Line Installer And Repairer Name Role Phone Leland Hernandez MD Primary Care Provider [phone] Encounter Details Date Type Department Care Team (Late st Contact Info) Description 06/30/2025 Lab Requisition [facility] - Main Lab [address] [place] [address] Leland Hernandez MD [address] [place] [address] Heart failure, unspecified (CMS/HCC V24, [...] LAB CHEMISTRY METHOD 06/30/2025 11:15 AM EDT [facility] Potassium 4.0 3.5 - 5.5 mmol/L LAB CHEMISTRY METHOD 06/30/2025 11:15 AM [facility] Chloride 103 96 - 110 mmol/L LAB CHEMISTRY METHOD 06/30/2025 11:15 AM [facility] CO2 29 21 - 32 mmol/L LAB CHEMISTRY METHOD 06/30/2025 11:15 AM [facility] Anion Gap 7 3 - 11 LAB CHEMISTRY METHOD 06/30/2025 11:15 AM [facility] Glucose 77 70 - 100 mg/dL LAB CHEMISTRY METHOD 06/30/2025 11:15 AM [facility] BUN 36(H) 5 - 25 mg/dL LAB CHEMISTRY METHOD 06/30/2025 11:15 AM [facility] Creatinine 0.74 0.50 - 1.10 mg/dL LAB CHEMISTRY METHOD 06/30/2025 11:15 AM [facility] eGFR 80 >=60 mL/min/1. 73m2 LAB CHEMISTRY METHOD 06/30/2025 11:15 AM [facility] Comment:Calculation based on the Chronic Kidney Disease Epidemiology Collaboration (CKD-EPI) equation refit without adjustment for race. BUN/Creatinine Ratio 48.6 LAB CHEMISTRY METHOD 06/30/2025 11:15 AM [facility] Calcium 8.5 8.5 - 10.5 mg/dL LAB CHEMISTRY METHOD 06/30/2025 11:15 AM [facility] AST (SGOT) 831(H) 10 - 42 unit/L LAB CHEMISTRY METHOD 06/30/2025 11:15 AM [facility] ALT (SGPT) 492(H) 10 - 60 unit/L LAB CHEMISTRY METHOD 06/30/2025 11:15 AM [facility] Alkaline Phosphatase 160(H) 42 - 121 unit/L LAB CHEMISTRY METHOD 06/30/2025 11:15 AM EDT [facility] Total Protein 5.7(L) 6.0 - 8.0 g/dL LAB CHEMISTRY METHOD 06/30/2025 11:15 AM [facility] Albumin 2.8(L) 3.2 - 5.0 g/dL LAB CHEMISTRY METHOD 06/30/2025 11:15 AM [facility] Total Bilirubin 1.0 0.0 - 1.4 mg/dL LAB CHEMISTRY METHOD 06/30/2025 11:15 AM T [facility] Blood Venous blood specimen / Unknown Venipuncture / Unknown 06/30/2025 5:17 AM EDT 06/30/2025 10:05 AM EDT us Leland Hernandez MD LAB BLOOD ORDERABLES Final Resu lt [facility] [address] [place] [address], * (ABNORMAL) Complete blood count (06/30/2025 5:17 AM EDT) WBC 11.6(H) 4.8 - 10.8 K/mcL LAB HEMETOLOGY METHOD 06/30/2025 10:42 AM [facility] RBC 3.50(L) 3.80 - 4.80 M/mcL LAB HEMETOLOGY METHOD 06/30/2025 10:42 AM T [facility] Hemoglobin 9.7(L) 11.5 - 16.0 g/dL LAB HEMETOLOGY METHOD 06/30/2025 10:42 AM [facility] Hematocrit 30.7(L) 35.0 - 47.0 % LAB HEMETOLOGY METHOD 06/30/2025 10:42 AM [facility] MCV 88.0 79.0 - 98.0 FL LAB HEMETOLOGY METHOD 06/30/2025 10:42 AM EDT [facility] MCH 27.8 27.0 - 32.0 pcg LAB HEMETOLOGY METHOD 06/30/2025 10:42 AM EDT [facility] MCHC 31.6(L) 32.0 - 37.0 g/dL LAB HEMETOLOGY METHOD 06/30/2025 10:42 AM T [facility] RDW 15.3(H) 11.0 - 15.0 % LAB HEMETOLOGY METHOD 06/30/2025 10:42 AM EDT [facility] Platelets 292 130 - 400 K/mcL LAB HEMETOLOGY METHOD 06/30/2025 10:42 AM EDT [facility] MPV 10.3 7.0 - 11.0 FL LAB HEMETOLOGY METHOD 06/30/2025 10:42 AM EDT [facility] NRBC 0.0 <1.0 % LAB HEMETOLOGY METHOD 06/30/2025 10:42 AM EDT [facility] NRBC Absolute 0.00 <0.10 K/mcL LAB HEMETOLOGY METHOD 06/30/2025 10:42 AM T [facility] Blood Venous blood specimen / Unknown Venipuncture / Unknown 06/30/2025 5:17 AM EDT 06/30/2025 10:05 AM EDT us Leland Hernandez MD LAB BLOOD ORDERABLES Final Resu lt [facility] [address] [place] [address], documented in this encounter Visit Diagnoses Diagnosis Heart failure, unspecified (CMS/HCC V24, CMS/HCC V28) Heart failure, unspecified documented in this encounter Care Teams Power Line Installer And Repairer Relationship Specialty Start Date End Date Leland Hernandez MD [address] [place] [address] PCP - General Internal Medicine 06/30/25 documented as of this encounter
--- OUTSIDE RECORDS SUMMARY | 2025-09-03 14:38 | XMS_ITS | Clinical Summary ---
Author Organization [address] Address [address] [place] [phone] Phone Care Team Providers Care Line Driver Name Role Phone Leland Hernandez MD Primary Care Provider [phone] Encounters Date Type Department Care Team Description 07/15/2025 Lab Requisition [facility] [address] [place] [address] Leland Hernandez MD Essential (primary) hypertension 07/08/2025 Lab Requisition [facility] [address] [place] [address] Leland Hernandez MD Essential (primary) hypertension 07/05/2025 Lab Requisition [facility] [address] [place] [address] Leland Hernandez MD Essential (primary) hypertension 07/01/2025 Lab Requisition [facility] [address] [place] [address] Leland Hernandez MD Essential (primary) hypertension 06/30/2025 Lab Requisition [facility] [address] [place] [address] Leland Hernandez MD Heart failure, unspecified (CMS/HCC [...] of4 resultswithin the time period is included. [facility] WBC 7.7 4.8 - 10.8 K/mcL LAB HEMETOLOGY METHOD 07/10/2025 10:39 AM [facility] RBC 3.70(L) 3.80 - 4.80 M/mcL LAB HEMETOLOGY METHOD 07/10/2025 10:39 AM [facility] Hemoglobin 10.6(L) 11.5 - 16.0 g/dL LAB HEMETOLOGY METHOD 07/10/2025 10:39 AM [facility] Hematocrit 34.8(L) 35.0 - 47.0 % LAB HEMETOLOGY METHOD 07/10/2025 10:39 AM [facility] MCV 93.3 79.0 - 98.0 FL LAB HEMETOLOGY METHOD 07/10/2025 10:39 AM [facility] MCH 28.4 27.0 - 32.0 pcg LAB HEMETOLOGY METHOD 07/10/2025 10:39 AM EDT [facility] MCHC 30.5(L) 32.0 - 37.0 g/dL LAB HEMETOLOGY METHOD 07/10/2025 10:39 AM EDT [facility] RDW 17.6(H) 11.0 - 15.0 % LAB HEMETOLOGY METHOD 07/10/2025 10:39 AM EDT [facility] Platelets 596(H) 130 - 400 K/mcL LAB HEMETOLOGY METHOD 07/10/2025 10:39 AM EDT [facility] MPV 9.5 7.0 - 11.0 FL LAB HEMETOLOGY METHOD 07/10/2025 10:39 AM EDT [facility] NRBC 0.0 <1.0 % LAB HEMETOLOGY METHOD 07/10/2025 10:39 AM EDT [facility] NRBC Absolute 0.00 <0.10 K/mcL LAB HEMETOLOGY METHOD 07/10/2025 10:39 AM EDT [facility] Blood Venous blood specimen / Unknown Venipuncture / Unknown 07/10/2025 4:47 AM EDT 07/10/2025 10:23 AM EDT us Leland Hernandez MD LAB BLOOD ORDERABLES Final Resu lt [facility] [address] [place] [address], * (ABNORMAL) Comprehensive metabolic panel (07/10/2025 4:47 AM EDT) Only the most recent of3 resultswithin the time period is included. Sodium 142 133 - 145 mmol/L LAB CHEMISTRY METHOD 07/10/2025 11:16 AM EDT [facility] Potassium 4.5 3.5 - 5.5 mmol/L LAB CHEMISTRY METHOD 07/10/2025 11:16 AM [facility] Chloride 103 96 - 110 mmol/L LAB CHEMISTRY METHOD 07/10/2025 11:16 AM [facility] CO2 32 21 - 32 mmol/L LAB CHEMISTRY METHOD 07/10/2025 11:16 AM [facility] Anion Gap 7 3 - 11 LAB CHEMISTRY METHOD 07/10/2025 11:16 AM [facility] Glucose 63(L) 70 - 100 mg/dL LAB CHEMISTRY METHOD 07/10/2025 11:16 AM [facility] BUN 16 5 - 25 mg/dL LAB CHEMISTRY METHOD 07/10/2025 11:16 AM [facility] Creatinine 0.67 0.50 - 1.10 mg/dL LAB CHEMISTRY METHOD 07/10/2025 11:16 AM [facility] eGFR 87 >=60 mL/min/1. 73m2 LAB CHEMISTRY METHOD 07/10/2025 11:16 AM [facility] Comment:Calculation based on the Chronic Kidney Disease Epidemiology Collaboration (CKD-EPI) equation refit without adjustment for race. BUN/Creatinine Ratio 23.9 LAB CHEMISTRY METHOD 07/10/2025 11:16 AM [facility] Calcium 9.0 8.5 - 10.5 mg/dL LAB CHEMISTRY METHOD 07/10/2025 11:16 AM [facility] AST (SGOT) 23 10 - 42 unit/L LAB CHEMISTRY METHOD 07/10/2025 11:16 AM [facility] ALT (SGPT) 39 10 - 60 unit/L LAB CHEMISTRY METHOD 07/10/2025 11:16 AM [facility] Alkaline Phosphatase 107 42 - 121 unit/L LAB CHEMISTRY METHOD 07/10/2025 11:16 AM [facility] Total Protein 5.8(L) 6.0 - 8.0 g/dL LAB CHEMISTRY METHOD 07/10/2025 11:16 AM EDT [facility] Albumin 3.0(L) 3.2 - 5.0 g/dL LAB CHEMISTRY METHOD 07/10/2025 11:16 AM [facility] Total Bilirubin 0.8 0.0 - 1.4 mg/dL LAB CHEMISTRY METHOD 07/10/2025 11:16 AM [facility] Blood Venous blood specimen / Unknown Venipuncture / Unknown 07/10/2025 4:47 AM EDT 07/10/2025 10:23 AM EDT us Leland Hernandez MD LAB BLOOD ORDERABLES Final Resu lt [facility] [address] [place] [address], [place] [phone] * (ABNORMAL) Basic metabolic panel (07/06/2025 6:45 AM EDT) Sodium 141 133 - 145 mmol/L LAB CHEMISTRY METHOD 07/06/2025 8:47 AM [facility] Potassium 4.2 3.5 - 5.5 mmol/L LAB CHEMISTRY METHOD 07/06/2025 8:47 AM [facility] Chloride 106 96 - 110 mmol/L LAB CHEMISTRY METHOD 07/06/2025 8:47 AM [facility] CO2 30 21 - 32 mmol/L LAB CHEMISTRY METHOD 07/06/2025 8:47 AM [facility] Anion Gap 5 3 - 11 LAB CHEMISTRY METHOD 07/06/2025 8:47 AM [facility] Glucose 85 70 - 100 mg/dL LAB CHEMISTRY METHOD 07/06/2025 8:47 AM [facility] BUN 14 5 - 25 mg/dL LAB CHEMISTRY METHOD 07/06/2025 8:47 AM [facility] Creatinine 0.48(L) 0.50 - 1.10 mg/dL LAB CHEMISTRY METHOD 07/06/2025 8:47 AM EDT [facility] eGFR 94 >=60 mL/min/1. 73m2 LAB CHEMISTRY METHOD 07/06/2025 8:47 AM EDT [facility] Comment:Calculation based on the Chronic Kidney Disease Epidemiology Collaboration (CKD-EPI) equation refit without adjustment for race. BUN/Creatinine Ratio 29.2 LAB CHEMISTRY METHOD 07/06/2025 8:47 AM EDT [facility] Calcium 8.8 8.5 - 10.5 mg/dL LAB CHEMISTRY METHOD 07/06/2025 8:47 AM EDT [facility] Blood Venous blood specimen / Unknown Venipuncture / Unknown 07/06/2025 6:45 AM EDT 07/06/2025 8:04 AM EDT us L[place] Hernandez MD LAB BLOOD ORDERABLES Final Resu lt [facility] [address] [place] [address], [place] [phone] from Last 3 Months Insurance MEDICARE [facility] Care Teams Line Driver Relationship Specialty Start Date End Date Leland Hernandez MD [address] [place] [id number] PCP - General Internal Medicine 06/30/25
--- OUTSIDE RECORDS SUMMARY | 2025-09-03 14:38 | XMS_ITS | Encounter Summary ---
Author Organization [facility] Address [address] [place] [address] Care Team Providers Care Corporate Strategy Associate Name Role Phone Leland Hernandez MD Primary Care Provider [phone] Encounter Details Date Type Department Care Team (Late st Contact Info) Description 07/01/2025 Lab Requisition [facility] Lab [address] [facility] [place] [address] Leland Hernandez MD [address] [place] [address] Essential (primary) hypertension Social History [...] LAB CHEMISTRY METHOD 07/04/2025 12:33 PM EDT [facility] Potassium 4.3 3.5 - 5.5 mmol/L LAB CHEMISTRY METHOD 07/04/2025 12:33 PM EDT [facility] Chloride 103 96 - 110 mmol/L LAB CHEMISTRY METHOD 07/04/2025 12:33 PM [facility] CO2 30 21 - 32 mmol/L LAB CHEMISTRY METHOD 07/04/2025 12:33 PM [facility] Anion Gap 8 3 - 11 LAB CHEMISTRY METHOD 07/04/2025 12:33 PM [facility] Glucose 76 70 - 100 mg/dL LAB CHEMISTRY METHOD 07/04/2025 12:33 PM [facility] BUN 14 5 - 25 mg/dL LAB CHEMISTRY METHOD 07/04/2025 12:33 PM [facility] Creatinine 0.55 0.50 - 1.10 mg/dL LAB CHEMISTRY METHOD 07/04/2025 12:33 PM [facility] eGFR 91 >=60 mL/min/1. 73m2 LAB CHEMISTRY METHOD 07/04/2025 12:33 PM [facility] Comment:Calculation based on the Chronic Kidney Disease Epidemiology Collaboration (CKD-EPI) equation refit without adjustment for race. BUN/Creatinine Ratio 25.5 LAB CHEMISTRY METHOD 07/04/2025 12:33 PM [facility] Calcium 8.4(L) 8.5 - 10.5 mg/dL LAB CHEMISTRY METHOD 07/04/2025 12:33 PM [facility] AST (SGOT) 53(H) 10 - 42 unit/L LAB CHEMISTRY METHOD 07/04/2025 12:33 PM [facility] Comment:Results verified by repeat testing ALT (SGPT) 176(H) 10 - 60 unit/L LAB CHEMISTRY METHOD 07/04/2025 12:33 PM [facility] Alkaline Phosphatase 100 42 - 121 unit/L LAB CHEMISTRY METHOD 07/04/2025 12:33 PM [facility] Total Protein 5.9(L) 6.0 - 8.0 g/dL LAB CHEMISTRY METHOD 07/04/2025 12:33 PM EDT [facility] Albumin 2.8(L) 3.2 - 5.0 g/dL LAB CHEMISTRY METHOD 07/04/2025 12:33 PM EDT [facility] Total Bilirubin 1.1 0.0 - 1.4 mg/dL LAB CHEMISTRY METHOD 07/04/2025 12:33 PM T [facility] Blood Venous blood specimen / Unknown Venipuncture / Unknown 07/04/2025 7:54 AM EDT 07/04/2025 10:21 AM EDT us Leland Hernandez MD LAB BLOOD ORDERABLES Final Resu lt [facility] [address] [place] [address], [place] [phone] * (ABNORMAL) Complete blood count (07/04/2025 5:03 AM EDT) WBC 7.9 4.8 - 10.8 K/mcL LAB HEMETOLOGY METHOD 07/04/2025 10:53 AM [facility] RBC 3.60(L) 3.80 - 4.80 M/mcL LAB HEMETOLOGY METHOD 07/04/2025 10:53 AM [facility] Hemoglobin 9.9(L) 11.5 - 16.0 g/dL LAB HEMETOLOGY METHOD 07/04/2025 10:53 AM T [facility] Hematocrit 32.8(L) 35.0 - 47.0 % LAB HEMETOLOGY METHOD 07/04/2025 10:53 AM [facility] MCV 91.6 79.0 - 98.0 FL LAB HEMETOLOGY METHOD 07/04/2025 10:53 AM [facility] MCH 27.7 27.0 - 32.0 pcg LAB HEMETOLOGY METHOD 07/04/2025 10:53 AM EDT [facility] MCHC 30.2(L) 32.0 - 37.0 g/dL LAB HEMETOLOGY METHOD 07/04/2025 10:53 AM EDT [facility] RDW 15.9(H) 11.0 - 15.0 % LAB HEMETOLOGY METHOD 07/04/2025 10:53 AM EDT [facility] Platelets 466(H) 130 - 400 K/mcL LAB HEMETOLOGY METHOD 07/04/2025 10:53 AM EDT [facility] MPV 9.6 7.0 - 11.0 FL LAB HEMETOLOGY METHOD 07/04/2025 10:53 AM EDT [facility] NRBC 0.0 <1.0 % LAB HEMETOLOGY METHOD 07/04/2025 10:53 AM EDT [facility] NRBC Absolute 0.00 <0.10 K/mcL LAB HEMETOLOGY METHOD 07/04/2025 10:53 AM EDT [facility] Blood Venous blood specimen / Unknown Venipuncture / Unknown 07/04/2025 5:03 AM EDT 07/04/2025 10:16 AM EDT Leland Hernandez MD LAB BLOOD ORDERABLES Final Resu lt [facility] [address] [place] [address], documented in this encounter Visit Diagnoses Diagnosis Essential (primary) hypertension Unspecified essential hypertension documented in this encounter Care Teams Corporate Strategy Associate Relationship Specialty Start Date End Date Leland Hernandez MD [address] [place] [address] PCP - General Internal Medicine 06/30/25 documented as of this encounter
--- OUTSIDE RECORDS SUMMARY | 2025-09-03 14:38 | XMS_ITS | Encounter Summary ---
Author Organization [facility] Address [address] [place] [address] Care Team Providers Care Holter Scanning Technician Name Role Phone Leland Hernandez MD Primary Care Provider [phone] Encounter Details Date Type Department Care Team (Late st Contact Info) Description 07/08/2025 Lab Requisition [facility] - Main Lab [address] [facility] [place] [address] Leland Hernandez MD [address] [place] [address] Essential (primary) hypertension Social History [...] LAB CHEMISTRY METHOD 07/10/2025 11:16 AM EDT [facility] Potassium 4.5 3.5 - 5.5 mmol/L LAB CHEMISTRY METHOD 07/10/2025 11:16 AM EDT [facility] Chloride 103 96 - 110 mmol/L LAB CHEMISTRY METHOD 07/10/2025 11:16 AM [facility] CO2 32 21 - 32 mmol/L LAB CHEMISTRY METHOD 07/10/2025 11:16 AM [facility] Anion Gap 7 3 - 11 LAB CHEMISTRY METHOD 07/10/2025 11:16 AM [facility] Glucose 63(L) 70 - 100 mg/dL LAB CHEMISTRY METHOD 07/10/2025 11:16 AM [facility] BUN 16 5 - 25 mg/dL LAB CHEMISTRY METHOD 07/10/2025 11:16 AM [facility] Creatinine 0.67 0.50 - 1.10 mg/dL LAB CHEMISTRY METHOD 07/10/2025 11:16 AM [facility] eGFR 87 >=60 mL/min/1. 73m2 LAB CHEMISTRY METHOD 07/10/2025 11:16 AM [facility] Comment:Calculation based on the Chronic Kidney Disease Epidemiology Collaboration (CKD-EPI) equation refit without adjustment for race. BUN/Creatinine Ratio 23.9 LAB CHEMISTRY METHOD 07/10/2025 11:16 AM [facility] Calcium 9.0 8.5 - 10.5 mg/dL LAB CHEMISTRY METHOD 07/10/2025 11:16 AM [facility] AST (SGOT) 23 10 - 42 unit/L LAB CHEMISTRY METHOD 07/10/2025 11:16 AM [facility] ALT (SGPT) 39 10 - 60 unit/L LAB CHEMISTRY METHOD 07/10/2025 11:16 AM [facility] Alkaline Phosphatase 107 42 - 121 unit/L LAB CHEMISTRY METHOD 07/10/2025 11:16 AM [facility] Total Protein 5.8(L) 6.0 - 8.0 g/dL LAB CHEMISTRY METHOD 07/10/2025 11:16 AM [facility] Albumin 3.0(L) 3.2 - 5.0 g/dL LAB CHEMISTRY METHOD 07/10/2025 11:16 AM EDT [facility] Total Bilirubin 0.8 0.0 - 1.4 mg/dL LAB CHEMISTRY METHOD 07/10/2025 11:16 AM EDT [facility] Blood Venous blood specimen / Unknown Venipuncture / Unknown 07/10/2025 4:47 AM EDT 07/10/2025 10:23 AM EDT us Leland Hernandez MD LAB BLOOD ORDERABLES Final Resu lt [facility] [address] [place] [address], [place] [phone] * (ABNORMAL) Complete blood count (07/10/2025 4:47 AM EDT) WBC 7.7 4.8 - 10.8 K/mcL LAB HEMETOLOGY METHOD 07/10/2025 10:39 AM [facility] RBC 3.70(L) 3.80 - 4.80 M/mcL LAB HEMETOLOGY METHOD 07/10/2025 10:39 AM [facility] Hemoglobin 10.6(L) 11.5 - 16.0 g/dL LAB HEMETOLOGY METHOD 07/10/2025 10:39 AM T [facility] Hematocrit 34.8(L) 35.0 - 47.0 % LAB HEMETOLOGY METHOD 07/10/2025 10:39 AM EDT [facility] MCV 93.3 79.0 - 98.0 FL LAB HEMETOLOGY METHOD 07/10/2025 10:39 AM [facility] MCH 28.4 27.0 - 32.0 pcg LAB HEMETOLOGY METHOD 07/10/2025 10:39 AM EDT [facility] MCHC 30.5(L) 32.0 - 37.0 g/dL LAB HEMETOLOGY METHOD 07/10/2025 10:39 AM EDT [facility] RDW 17.6(H) 11.0 - 15.0 % LAB HEMETOLOGY METHOD 07/10/2025 10:39 AM EDT [facility] Platelets 596(H) 130 - 400 K/mcL LAB HEMETOLOGY METHOD 07/10/2025 10:39 AM EDT [facility] MPV 9.5 7.0 - 11.0 FL LAB HEMETOLOGY METHOD 07/10/2025 10:39 AM EDT [facility] NRBC 0.0 <1.0 % LAB HEMETOLOGY METHOD 07/10/2025 10:39 AM EDT [facility] NRBC Absolute 0.00 <0.10 K/mcL LAB HEMETOLOGY METHOD 07/10/2025 10:39 AM EDT [facility] Blood Venous blood specimen / Unknown Venipuncture / Unknown 07/10/2025 4:47 AM EDT 07/10/2025 10:23 AM EDT us Leland Hernandez MD LAB BLOOD ORDERABLES Final Resu lt [facility] [address] [place] [address], documented in this encounter Visit Diagnoses Diagnosis Essential (primary) hypertension Unspecified essential hypertension documented in this encounter Care Teams Holter Scanning Technician Relationship Specialty Start Date End Date Leland Hernandez MD [address] [place] [phone] PCP - General Internal Medicine 06/30/25 documented as of this encounter
--- OUTSIDE RECORDS SUMMARY | 2025-09-13 19:00 | XMS_ITS | Clinical Summary ---
Author Organization Unknown Care Team Providers Care Blintze Roller Name Role Phone EMMETT DAMON, AVNI Unavailable Unavailallen FINLEY RN, FLORA Unavailable Unavailab simon CREWS PT, GELA Unavailable Unavailallen BERNAL OCCUPATIONAL NURSE, CHI Unavailable Unavailable READING OT, NIKOLAS Unavailable Unavailable PENDJENN NEWS BROADCASTER, MAMTA Unavailable Unavailable Payers Payer Name Policy Type Policy Number Effective Date Expira tion Date MEDICARE.NGS.PDGM [id number] Problems Condition Name Condition Details Condition Category Status Onset Date Resolution Date Last Treatment Date Treating Clinician Comments AGE-REL OSTEOPOR W CRNT PATH FX, L FEMR, 7THD Active 07-17 00:00: 00 ESSENTIAL (PRIMARY) HYPERTENSION Active 07-17 00:00: 00 INTERSTITIAL PULMONARY DISEASE, UNSPECIFIED Active 07-17 00:00: 00 GASTRO-ESOPH AGEAL REFLUX DISEASE WITHOUT ESOPHAGITIS Active 07-17 00:00: 00 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 Active 07-17 00:00: 00 OTHER FORMS OF SCOLIOSIS, LUMBAR REGION Active 07-17 00:00: 00 OTHER FORMS OF SCOLIOSIS, THORACIC REGION Active 07-17 00:00: 00 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 Ordering Clinician Indication Dosage Frequency Signature (SIG) Comments Components pantoprazol e 40 mg tablet,wyatt yed release 07-10 00:00: 00 Yes [id number] GERD 1 tablet EVERY 1 tablet EVERY (route: oral) Med Classific ation: Gastroint estinal Therapy Agents amlodipine 5 mg tablet 07-17 00:00: 00 Yes [id number] BLOOD PRESSURE 1 tablet DAILY 1 tablet DAILY (route: oral) Med Classific ation: Cardiovas cular Therapy Agents iron, carbonyl 45 mg tablet 07-17 00:00: 00 07-18 15:13 :05.1 83 No [id number] IRON 1 tablet DAILY 1 tablet DAILY (route: oral) Med Classific ation: Electroly te Balance-N utritiona l Products metoprolol tartrate 25 mg tablet 07-17 00:00: 00 07-18 15:11 :46.3 07 No [id number] HEART RATE 1 tablet 2 TIMES DAILY 1 tablet 2 TIMES DAILY (route: oral) Med Classific ation: Cardiovas cular Therapy Agents Vitamin D3 25 mcg (1,000 unit) capsule 07-17 00:00: 00 Yes [id number] VITAMIN 1 capsule DAILY 1 capsule DAILY (route: oral) Med Classific ation: Electroly te Balance-N utritiona l Products aspirin 325 mg tablet 07-18 00:00: 00 08-29 23:59 :00 No [id number] blood thinner 1 tablet 2 TIMES DAILY 1 tablet 2 TIMES DAILY (route: oral) Med Classific ation: Analgesic , Anti-infl ammatory or Antipyret ic metoprolol succinate ER 25 mg tablet,exte nded release 24 hr 07-18 00:00: 00 Yes [id number] blood pressure 1 tablet DAILY 1 tablet DAILY (route: oral) Med Classific ation: Cardiovas cular Therapy Agents FeroSul 325 mg (65 mg iron) tablet 07-18 00:00: 00 Yes [id number] supplement 1 tablet DAILY 1 tablet DAILY (route: oral) Med Classific ation: Electroly te Balance-N utritiona l Products AMOXICILLIN ORAL 02-05 00:00: 00 04-04 00:00 :00 No 875 mg1 TABLET TWICE TWICE DAILY IN THE MORNING IN THE EVENIN 875 mg1 TABLET TWICE TWICE DAILY IN THE MORNING IN THE EVENIN (route: ) Med Classific ation: ANTI-INFE CTIVE AGENTS FERROUS SULFATE ORAL 03-10 00:00: 00 04-04 00:00 :00 No 325 mg (65 mg iron)ON E TABLET THREE TIMES A DAY 325 mg (65 mg iron)ONE TABLET THREE TIMES A DAY (route: ) Med Classific ation: ELECTROLY TE BALANCE-N UTRITIONA L PRODUCTS DICLOFENAC SODIUM TOPICAL 01-30 00:00: 00 04-04 00:00 :00 No 3 % 3 % (route: ) Med Classific ation: DERMATOLO GICAL Vital Signs Vital Name Observation Time Observation Value Commen ts Temperature 2025-08-28 10:23:00.000 97.8 [degF] Temperature 2025-08-22 09:04:00.000 97.1 [degF] Temperature 2025-08-21 10:18:00.000 97.6 [degF] Temperature 2025-08-14 10:28:00.000 97.6 [degF] Temperature 2025-08-07 12:44:00.000 97.7 [degF] Temperature 2025-08-07 12:40:00.000 97.7 [degF] Temperature 2025-08-07 10:12:00.000 97.6 [degF] Temperature 2025-08-01 09:00:00.000 97.1 [degF] Temperature 2025-07-31 10:10:00.000 97.7 [degF] Temperature 2025-07-27 14:39:00.000 97.1 [degF] Temperature 2025-07-26 09:13:00.000 97.7 [degF] Temperature 2025-07-24 10:24:00.000 97.4 [degF] Temperature 2025-07-20 18:20:00.000 97.9 [degF] Temperature 2025-07-20 09:23:00.000 97.9 [degF] Temperature 2025 10:03:00.000 98.2 [degF] BMI (%) 2025 09:46:57.000 20 kg/m2 Height 2025 09:46:47.000 58 [in_us] Pulse 2025-08-28 10:23:00.000 87 /min Pulse 2025-08-22 09:04:00.000 80 /min Pulse 2025-08-21 10:18:00.000 79 /min Pulse 2025-08-14 10:28:00.000 64 /min Pulse 2025-08-07 12:44:00.000 75 /min Pulse 2025-08-07 12:40:00.000 75 /min Pulse 2025-08-07 10:12:00.000 62 /min Pulse 2025-08-01 09:00:00.000 80 /min Pulse 2025-07-31 10:10:00.000 73 /min Pulse 2025-07-27 14:39:00.000 71 /min Pulse 2025-07-26 09:13:00.000 80 /min Pulse 2025-07-24 10:24:00.000 64 /min Pulse 2025-07-20 18:20:00.000 74 /min Pulse 2025-07-20 09:23:00.000 74 /min Pulse 2025 10:03:00.000 73 /min O2 Saturation (%) 2025-08-22 09:04:00.000 98 % O2 Saturation (%) 2025-08-21 10:18:00.000 95 % O2 Saturation (%) 2025-08-14 10:28:00.000 98 % O2 Saturation (%) 2025-08-07 12:44:00.000 97 % O2 Saturation (%) 2025-08-07 12:40:00.000 97 % O2 Saturation (%) 2025-08-07 10:12:00.000 96 % O2 Saturation (%) 2025-07-31 10:10:00.000 98 % O2 Saturation (%) 2025-07-27 14:39:00.000 97 % O2 Saturation (%) 2025-07-26 09:13:00.000 98 % O2 Saturation (%) 2025-07-24 10:24:00.000 97 % O2 Saturation (%) 2025-07-20 18:20:00.000 98 % O2 Saturation (%) 2025-07-20 09:23:00.000 99 % O2 Saturation (%) 2025 10:03:00.000 98 % Respirations 2025-08-28 10:23:00.000 18 /min Respirations 2025-08-22 09:04:00.000 16 /min Respirations 2025-08-21 10:18:00.000 18 /min Respirations 2025-08-14 10:28:00.000 17 /min Respirations 2025-08-07 12:44:00.000 18 /min Respirations 2025-08-07 12:40:00.000 18 /min Respirations 2025-08-07 10:12:00.000 18 /min Respirations 2025-08-01 09:00:00.000 16 /min Respirations 2025-07-31 10:10:00.000 18 /min Respirations 2025-07-27 14:39:00.000 16 /min Respirations 2025-07-26 09:13:00.000 17 /min Respirations 2025-07-24 10:24:00.000 18 /min Respirations 2025-07-20 18:20:00.000 17 /min Respirations 2025-07-20 09:23:00.000 17 /min Respirations 2025 10:03:00.000 16 /min Weight (lbs) 2025 09:46:57.000 99 [lb_av] Systolic Blood Pressure 2025-08-28 10:23:00.000 110 mm [Hg] Systolic Blood Pressure 2025-08-22 09:04:00.000 112 mm [Hg] Systolic Blood Pressure 2025-08-21 10:18:00.000 120 mm [Hg] Systolic Blood Pressure 2025-08-14 10:28:00.000 110 mm [Hg] Systolic Blood Pressure 2025-08-07 12:44:00.000 102 mm [Hg] Systolic Blood Pressure 2025-08-07 12:40:00.000 102 mm [Hg] Systolic Blood Pressure 2025-08-07 10:12:00.000 110 mm [Hg] Systolic Blood Pressure 2025-08-01 09:00:00.000 108 mm [Hg] Systolic Blood Pressure 2025-07-31 10:10:00.000 130 mm [Hg] Systolic Blood Pressure 2025-07-27 14:39:00.000 120 mm [Hg] Systolic Blood Pressure 2025-07-26 09:13:00.000 100 mm [Hg] Systolic Blood Pressure 2025-07-24 10:24:00.000 104 mm [Hg] Systolic Blood Pressure 2025-07-20 18:20:00.000 108 mm [Hg] Systolic Blood Pressure 2025-07-20 09:23:00.000 102 mm [Hg] Systolic Blood Pressure 2025 10:03:00.000 110 mm [Hg] Diastolic Blood Pressure 2025-08-28 10:23:00.000 71 mm [Hg] Diastolic Blood Pressure 2025-08-22 09:04:00.000 78 mm [Hg] Diastolic Blood Pressure 2025-08-21 10:18:00.000 85 mm [Hg] Diastolic Blood Pressure 2025-08-14 10:28:00.000 62 mm [Hg] Diastolic Blood Pressure 2025-08-07 12:44:00.000 60 mm [Hg] Diastolic Blood Pressure 2025-08-07 12:40:00.000 60 mm [Hg] Diastolic Blood Pressure 2025-08-07 10:12:00.000 70 mm [Hg] Diastolic Blood Pressure 2025-08-01 09:00:00.000 70 mm [Hg] Diastolic Blood Pressure 2025-07-31 10:10:00.000 80 mm [Hg] Diastolic Blood Pressure 2025-07-27 14:39:00.000 70 mm [Hg] Diastolic Blood Pressure 2025-07-26 09:13:00.000 60 mm [Hg] Diastolic Blood Pressure 2025-07-24 10:24:00.000 50 mm [Hg] Diastolic Blood Pressure 2025-07-20 18:20:00.000 64 mm [Hg] Diastolic Blood Pressure 2025-07-20 09:23:00.000 58 mm [Hg] Diastolic Blood Pressure 2025 10:03:00.000 64 mm [Hg] Plan of Treatment Planned Activity Planned Date Details Comments Future Scheduled Test PHYSICAL T HERAPIST TO EVALUATE FOR SAFETY. [code = PHYSICAL THERAPIST TO EVALUATE FOR SAFETY.] Future Scheduled Test OCCUPATION AL THERAPIST TO EVALUATE FOR IDLS AND ADLS. [code = OCCUPATIONAL THERAPIST TO EVALUATE FOR IDLS AND ADLS.] Future Scheduled Test FALL REDUC TION MANAGEMENT; RN TO ASSESS AND OBSERVE, NEWS BROADCASTER/SCRAP KETTLE TENDER TO OBSERVE FALL RISK FACTORS AND EDUCATE PATIENT/CAREGIVER ON STRATEGIES TO MINIMIZE THE RISK OF FALLING. [code = FALL REDUCTION MANAGEMENT; RN TO ASSESS AND OBSERVE, NEWS BROADCASTER/SCRAP KETTLE TENDER TO OBSERVE FALL RISK FACTORS AND EDUCATE PATIENT/CAREGIVER ON STRATEGIES TO MINIMIZE THE RISK OF FALLING.] Future Scheduled Test RN TO OBSE RVE, ASSESS, EVALUATE, AND DEVELOP AN INDIVIDUALIZED PLAN OF CARE. AGENCY MAY ACCEPT ORDERS FROM CONSULTING PHYSICIANS. RN TO OBSERVE AND ASSESS, NEWS BROADCASTER/SCRAP KETTLE TENDER TO OBSERVE FOR RISK FOR FALLS AND INSTRUCT IN FALL PREVENTION, HOME SAFETY, MEDICATION MANAGEMENT, INFECTION PREVENTION, AND NUTRITION MANAGEMENT. RN/NEWS BROADCASTER/SCRAP KETTLE TENDER NURSE MAY PERFORM O2 SATURATION LEVEL ON ADMISSION AND PRN FOR RN TO ASSESS/NEWS BROADCASTER TO OBSERVE PATIENT, WITH NOTIFICATION TO THE PHYSICIAN IF SATURATION IS 90% IN THE ABSENCE OF MORE SPECIFIC PARAMETERS FROM THE PHYSICIAN. AGENCY MAY PERFORM A RESUMPTION OF CARE VISIT FOLLOWING ANY HOSPITAL ADMISSION. RN/NEWS BROADCASTER/SCRAP KETTLE TENDER TO MONITOR CO-MORBID CONDITIONS LISTED ON THE PLAN OF CARE AND ANY NEW CONDITIONS THAT PRESENT THEMSELVES DURING THIS EPISODE TO IDENTIFY CHANGES AND INTERVENE TO MINIMIZE COMPLICATIONS. [code = RN TO OBSERVE, ASSESS, EVALUATE, AND DEVELOP AN INDIVIDUALIZED PLAN OF CARE. AGENCY MAY ACCEPT ORDERS FROM CONSULTING PHYSICIANS. RN TO OBSERVE AND ASSESS, NEWS BROADCASTER/SCRAP KETTLE TENDER TO OBSERVE FOR RISK FOR FALLS AND INSTRUCT IN FALL PREVENTION, HOME SAFETY, MEDICATION MANAGEMENT, INFECTION PREVENTION, AND NUTRITION MANAGEMENT. RN/NEWS BROADCASTER/SCRAP KETTLE TENDER NURSE MAY PERFORM O2 SATURATION LEVEL ON ADMISSION AND PRN FOR RN TO ASSESS/NEWS BROADCASTER TO OBSERVE PATIENT, WITH NOTIFICATION TO THE PHYSICIAN IF SATURATION IS 90% IN THE ABSENCE OF MORE SPECIFIC PARAMETERS FROM THE PHYSICIAN. AGENCY MAY PERFORM A RESUMPTION OF CARE VISIT FOLLOWING ANY HOSPITAL ADMISSION. RN/NEWS BROADCASTER/SCRAP KETTLE TENDER TO MONITOR CO-MORBID CONDITIONS LISTED ON THE PLAN OF CARE AND ANY NEW CONDITIONS THAT PRESENT THEMSELVES DURING THIS EPISODE TO IDENTIFY CHANGES AND INTERVENE TO MINIMIZE COMPLICATIONS.] Future Scheduled Test PAIN MANAG EMENT; RN TO ASSESS AND TEACH, SCRAP KETTLE TENDER/NEWS BROADCASTER TO OBSERVE AND TEACH AND PROVIDE EDUCATION ON PAIN MANAGEMENT TECHNIQUES. [code = PAIN MANAGEMENT; RN TO ASSESS AND TEACH, SCRAP KETTLE TENDER/NEWS BROADCASTER TO OBSERVE AND TEACH AND PROVIDE EDUCATION ON PAIN MANAGEMENT TECHNIQUES.] Future Scheduled Test RISK FOR H OSPITALIZATION; RN TO ASSESS/TEACH, SCRAP KETTLE TENDER/NEWS BROADCASTER TO OBSERVE/TEACH PATIENT/CAREGIVER ON RISK FOR HOSPITALIZATION/EMERGENCY ROOM VISITS, TEACH SIGNS AND SYMPTOMS THAT PUT PATIENT AT RISK, WHEN TO NOTIFY NURSE/PHYSICIAN OF COMPLICATIONS/DECLINE, AND WHEN TO CALL 911. [code = RISK FOR HOSPITALIZATION; RN TO ASSESS/TEACH, SCRAP KETTLE TENDER/NEWS BROADCASTER TO OBSERVE/TEACH PATIENT/CAREGIVER ON RISK FOR HOSPITALIZATION/EMERGENCY ROOM VISITS, TEACH SIGNS AND SYMPTOMS THAT PUT PATIENT AT RISK, WHEN TO NOTIFY NURSE/PHYSICIAN OF COMPLICATIONS/DECLINE, AND WHEN TO CALL 911.] Future Scheduled Test CARDIOVASC ULAR SYSTEM; RN TO ASSESS/TEACH, NEWS BROADCASTER/SCRAP KETTLE TENDER TO OBSERVE/TEACH RELATED TO ALTERED CARDIOVASCULAR STATUS TO MINIMIZE COMPLICATIONS AND REDUCE HOSPITALIZATION. [code = CARDIOVASCULAR SYSTEM; RN TO ASSESS/TEACH, NEWS BROADCASTER/SCRAP KETTLE TENDER TO OBSERVE/TEACH RELATED TO ALTERED CARDIOVASCULAR STATUS TO MINIMIZE COMPLICATIONS AND REDUCE HOSPITALIZATION.] Future Scheduled Test HYPERTENSI ON MANAGEMENT; RN TO ASSESS AND TEACH, NEWS BROADCASTER/SCRAP KETTLE TENDER TO OBSERVE AND TEACH WARNING SIGNS AND SYMPTOMS TO AVOID HOSPITALIZATION. [code = HYPERTENSION MANAGEMENT; RN TO ASSESS AND TEACH, NEWS BROADCASTER/SCRAP KETTLE TENDER TO OBSERVE AND TEACH WARNING SIGNS AND SYMPTOMS TO AVOID HOSPITALIZATION.] Future Scheduled Test RN TO ASSE SS/TEACH, NEWS BROADCASTER/SCRAP KETTLE TENDER TO OBSERVE/TEACH SURGICAL AFTERCARE MANAGEMENT TO AVOID HOSPITALIZATION. [code = RN TO ASSESS/TEACH, NEWS BROADCASTER/SCRAP KETTLE TENDER TO OBSERVE/TEACH SURGICAL AFTERCARE MANAGEMENT TO AVOID HOSPITALIZATION.] Future Scheduled Test AGENCY MAY PERFORM A RESUMPTION OF CARE VISIT FOLLOWING ANY HOSPITAL ADMISSION. OT TO EVALUATE, OBSERVE / ASSESS, AND MONITOR, GAS OPERATIONS SUPERINTENDENT TO OBSERVE AND MONITOR, PROVIDE SKILLED THERAPEUTIC INTERVENTION, ACTIVITY, EDUCATION, AND TRAINING TO ADDRESS; ACTIVITIES OF DAILY LIVING (OT/GAS OPERATIONS SUPERINTENDENT) MEAL PREPARATION AND CLEANUP (OT/GAS OPERATIONS SUPERINTENDENT) HOME ACTIVITY / EXERCISE PROGRAM (OT/CHRISTOPHER) POSTURAL CONTROL/BALANCE (OT/GAS OPERATIONS SUPERINTENDENT) THERAPEUTIC EXERCISE (OT/GAS OPERATIONS SUPERINTENDENT) OT/CHRISTOPHER TO MONITOR AND EDUCATE ON OXYGEN SATURATION DURING ADLS/IADLS, NOTIFY PHYSICIAN AND/OR THE RN CLINICAL SALVAGE WORKER FOR PHYSICIAN NOTIFICATION AND IF O2 SATS BELOW 90% AFTER 10 MIN OF REST. OT/GAS OPERATIONS SUPERINTENDENT MAY EDUCATE ON PAIN MANAGEMENT CLINICALLY INDICATED. OT / GAS OPERATIONS SUPERINTENDENT TO IDENTIFY FALL RISK FACTORS; EDUCATE THE PATIENT/CAREGIVER ON WAYS TO REDUCE FALL RISK FACTORS AND ESTABLISH HOME EXERCISE PROGRAM TO MINIMIZE FALL RISK. MAY TEACH THE PATIENT FLOOR RECOVERY WHEN CLINICALLY APPROPRIATE. OT/GAS OPERATIONS SUPERINTENDENT TO EDUCATE ON FEMUR FRACTURE /ORIF SELF MANAGEMENT [code = AGENCY MAY PERFORM A RESUMPTION OF CARE VISIT FOLLOWING ANY HOSPITAL ADMISSION. OT TO EVALUATE, OBSERVE / ASSESS, AND MONITOR, CHRISTOPHER TO OBSERVE AND MONITOR, PROVIDE SKILLED THERAPEUTIC INTERVENTION, ACTIVITY, EDUCATION, AND TRAINING TO ADDRESS; ACTIVITIES OF DAILY LIVING (OT/CHRISTOPHER) MEAL PREPARATION AND CLEANUP (OT/CHRISTOPHER) HOME ACTIVITY / EXERCISE PROGRAM (OT/CHRISTOPHER) POSTURAL CONTROL/BALANCE (OT/GAS OPERATIONS SUPERINTENDENT) THERAPEUTIC EXERCISE (OT/GAS OPERATIONS SUPERINTENDENT) OT/CHRISTOPHER TO MONITOR AND EDUCATE ON OXYGEN SATURATION DURING ADLS/IADLS, NOTIFY PHYSICIAN AND/OR THE RN CLINICAL SALVAGE WORKER FOR PHYSICIAN NOTIFICATION AND IF O2 SATS BELOW 90% AFTER 10 MIN OF REST. OT/GAS OPERATIONS SUPERINTENDENT MAY EDUCATE ON PAIN MANAGEMENT CLINICALLY INDICATED. OT / CHRISTOPHER TO IDENTIFY FALL RISK FACTORS; EDUCATE THE PATIENT/CAREGIVER ON WAYS TO REDUCE FALL RISK FACTORS AND ESTABLISH HOME EXERCISE PROGRAM TO MINIMIZE FALL RISK. MAY TEACH THE PATIENT FLOOR RECOVERY WHEN CLINICALLY APPROPRIATE. OT/GAS OPERATIONS SUPERINTENDENT TO EDUCATE ON FEMUR FRACTURE /ORIF SELF MANAGEMENT] Future Scheduled Test AGENCY MAY PERFORM A RESUMPTION OF CARE VISIT FOLLOWING ANY HOSPITAL ADMISSION. PT TO EVALUATE, OBSERVE / ASSESS, AND MONITOR, OCCUPATIONAL NURSE TO OBSERVE AND MONITOR, PROVIDE SKILLED THERAPEUTIC INTERVENTION, ACTIVITY, EDUCATION, AND TRAINING TO ADDRESS; PT/OCCUPATIONAL NURSE TO PROVIDE GAIT TRAINING FOR IMPROVED MOBILITY AND /OR TO NORMALIZE GAIT PATTERN NEUROMUSCULAR RE-EDUCATION / BALANCE / POSTURAL CONTROL (PT) THERAPEUTIC EXERCISES AND ESTABLISHING A HOME EXERCISE PROGRAM (PT/OCCUPATIONAL NURSE) PT/OCCUPATIONAL NURSE TO PROVIDE STAIR TRAINING SIT TO/FROM STAND TRANSFERS (PT/OCCUPATIONAL NURSE) PT TO ASSESS / OCCUPATIONAL NURSE TO MONITOR FOR AND REPORT EARLY SIGNS OF ANTICOAGULANT TOXICITY TO THE PHYSICIAN AND/OR THE RN CLINICAL SALVAGE WORKER FOR PHYSICIAN NOTIFICATION AND TO PROVIDE PATIENT/CAREGIVER EDUCATION ON ANTICOAGULANT THERAPY PT / OCCUPATIONAL NURSE TO MONITOR AND EDUCATE ON OXYGEN SATURATION DURING ADLS/IADLS, NOTIFY PHYSICIAN AND/OR THE RN CLINICAL SALVAGE WORKER FOR PHYSICIAN NOTIFICATION AND IF O2 SATS BELOW PHYSICIAN ORDERED PARAMETERS AFTER 10 MIN OF REST PT/OCCUPATIONAL NURSE TO EDUCATE ON FEMUR FRACTURE /ORIF SELF-MANAGEMENT. PT/OCCUPATIONAL NURSE TO IDENTIFY FALL RISK FACTORS; EDUCATE THE PATIENT/CAREGIVER ON WAYS TO REDUCE FALL RISK FACTORS AND ESTABLISH HOME EXERCISE PROGRAM TO MINIMIZE FALL RISK. MAY TEACH THE PATIENT FLOOR RECOVERY WHEN CLINICALLY APPROPRIATE PT / OCCUPATIONAL NURSE MAY EDUCATE ON PAIN MANAGEMENT CLINICALLY INDICATED, INCLUDING NON-PHARMACOLOGICAL PAIN REDUCTION TECHNIQUES [code = AGENCY MAY PERFORM A RESUMPTION OF CARE VISIT FOLLOWING ANY HOSPITAL ADMISSION. PT TO EVALUATE, OBSERVE / ASSESS, AND MONITOR, OCCUPATIONAL NURSE TO OBSERVE AND MONITOR, PROVIDE SKILLED THERAPEUTIC INTERVENTION, ACTIVITY, EDUCATION, AND TRAINING TO ADDRESS; PT/OCCUPATIONAL NURSE TO PROVIDE GAIT TRAINING FOR IMPROVED MOBILITY AND /OR TO NORMALIZE GAIT PATTERN NEUROMUSCULAR RE-EDUCATION / BALANCE / POSTURAL CONTROL (PT) THERAPEUTIC EXERCISES AND ESTABLISHING A HOME EXERCISE PROGRAM (PT/OCCUPATIONAL NURSE) PT/OCCUPATIONAL NURSE TO PROVIDE STAIR TRAINING SIT TO/FROM STAND TRANSFERS (PT/OCCUPATIONAL NURSE) PT TO ASSESS / OCCUPATIONAL NURSE TO MONITOR FOR AND REPORT EARLY SIGNS OF ANTICOAGULANT TOXICITY TO THE PHYSICIAN AND/OR THE RN CLINICAL SALVAGE WORKER FOR PHYSICIAN NOTIFICATION AND TO PROVIDE PATIENT/CAREGIVER EDUCATION ON ANTICOAGULANT THERAPY PT / OCCUPATIONAL NURSE TO MONITOR AND EDUCATE ON OXYGEN SATURATION DURING ADLS/IADLS, NOTIFY PHYSICIAN AND/OR THE RN CLINICAL SALVAGE WORKER FOR PHYSICIAN NOTIFICATION AND IF O2 SATS BELOW PHYSICIAN ORDERED PARAMETERS AFTER 10 MIN OF REST PT/OCCUPATIONAL NURSE TO EDUCATE ON FEMUR FRACTURE /ORIF SELF-MANAGEMENT. PT/OCCUPATIONAL NURSE TO IDENTIFY FALL RISK FACTORS; EDUCATE THE PATIENT/CAREGIVER ON WAYS TO REDUCE FALL RISK FACTORS AND ESTABLISH HOME EXERCISE PROGRAM TO MINIMIZE FALL RISK. MAY TEACH THE PATIENT FLOOR RECOVERY WHEN CLINICALLY APPROPRIATE PT / OCCUPATIONAL NURSE MAY EDUCATE ON PAIN MANAGEMENT CLINICALLY INDICATED, INCLUDING NON-PHARMACOLOGICAL PAIN REDUCTION TECHNIQUES] Goal Patient Goal - S AFER WITH AMBULATING AND GET BACK TO [place]. Goal Provider Goal - Goal Provider Goal - Goal Provider Goal - PATIENT/CAREGIVER WILL VERBALIZE/DEMONSTRATE UNDERSTANDING OF FALL RISK FACTORS AND IMPLEMENT STRATEGIES TO MINIMIZE FALL RISK. PATIENT/CAREGIVER WILL VERBALIZE/DEMONSTRATE AN ABILITY TO ADHERE TO FALL REDUCTION SELF-MANAGEMENT AND LIFE-STYLE CHANGES BY END OF EPISODE. Goal Provider Goal - A PLAN OF CARE WILL BE ESTABLISHED THAT MEETS THE PATIENT S NEEDS. PATIENT WILL DEMONSTRATE OXYGEN SATURATION WITHIN NORMAL LIMITS OR PATIENT S OPTIMAL LEVEL ESTABLISHED BY THE PHYSICIAN THROUGHOUT CARE. CHANGES TO CO-MORBID CONDITIONS AND ANY NEW CONDITIONS WILL BE IDENTIFIED AND REPORTED TO THE PHYSICIAN. Goal Provider Goal - PATIENT / CAREGIVER WILL VERBALIZE / DEMONSTRATE UNDERSTANDING OF PAIN CONTROL MEASURES BY END OF EPISODE. Goal Provider Goal - PATIENT/CAREGIVER WILL VERBALIZE UNDERSTANDING OF SIGNS AND SYMPTOMS THAT PUT THE PATIENT AT RISK FOR HOSPITALIZATION /EMERGENCY ROOM VISITS, WHEN TO NOTIFY NURSE/PHYSICIAN OF COMPLICATIONS/DECLINE AND WHEN TO CALL 911. Goal Provider Goal - PATIENT / CAREGIVER WILL VERBALIZE/DEMONSTRATE UNDERSTANDING OF MEASURES TO MANAGE ALTERED CARDIOVASCULAR STATUS BY EOE Goal Provider Goal - PATIENT / CAREGIVER WILL VERBALIZE/DEMONSTRATE AN ABILITY TO ADHERE TO SELF-MANAGEMENT OF HTN TO MINIMIZE COMPLICATIONS AND AVOID HOSPITALIZATION BY END OF EPISODE. Goal Provider Goal - PATIENT/CAREGIVER WILL VERBALIZE/DEMONSTRATE POSTOPERATIVE CARE TO MINIMIZE COMPLICATION AND AVOID HOSPITALIZATIONS BY THE END OF THE EPISODE. Goal Provider Goal - OT LTG: PATIENT WILL DEMONSTRATE IMPROVEMENT IN MODIFIED CLEMENCIA INDEX SCORE FROM 80 TO 85/100 INDICATING DECREASED DEPENDENCY ON CAREGIVER ASSISTANCE WITH ACTIVITIES OF DAILY LIVING WITHIN 8 WEEKS. OT LTG: PATIENT WILL DEMONSTRATE THE ABILITY TO COMPLETE MEAL PREPARATION AND CLEANUP TO REDUCE CAREGIVER BURDEN FROM UNABLE TO IND WITHIN 8 WEEKS OT LTG: PATIENT/CAREGIVER WILL BE ABLE TO DEMONSTRATE UE STRENGTH EXERCISES / ACTIVITIES FOR IMPROVED BUE STRENGTH FROM UNABLE TO INDEPENDENT WITHIN 8 WEEKS. OT LTG: PATIENT WILL DEMONSTRATE IMPROVED POSTURAL CONTROL AND DECREASED FALL RISK EVIDENCED BY AN IMPROVEMENT IN FUNCTIONAL REACH SCORE FROM 4 TO 7 WITHIN 8 WEEKS IN ORDER TO DECREASE RISK OF FALLING OT LTG: PATIENT WILL DEMONSTRATE IMPROVED BUE MUSCLE STRENGTH EVIDENCED BY AN IMPROVEMENT IN MMT/FUNCTIONAL STRENGTH FROM 4-/5 TO 4+/5 WITHIN 8 WEEKS IN ORDER TO IMPROVE INDEPENDENCE WITH FUNCTIONAL TRANSFERS OT LTG: PATIENT WILL MAINTAIN OXYGEN SATURATION WITHIN PHYSICIAN ORDERED PARAMETERS THROUGHOUT THE EPISODE OF CARE. OT LTG: PATIENT WILL DEMONSTRATE UNDERSTANDING OF PAIN MANAGEMENT TECHNIQUES NEEDED DURING EPISODE OF CARE OT LTG: PATIENT/CAREGIVER WILL BE ABLE TO IMPLEMENT RECOMMENDATIONS SPECIFIC TO FALL REDUCTION FOR IMPROVED ADL/IADL COMPLETION AND HOME SAFETY BY END OF EPISODE. OT GOAL:PATIENT WILL DEMONSTRATE OPTIMAL OUTCOMES INCLUDING INCREASED STRENGTH AND MOBILITY WITH NO COMPLICATIONS AND IMPROVED INDEPENDENCE WITH ADLS FOLLOWING FEMUR FRACTURE/ORIF BY END OF EPISODE. Goal Provider Goal - PT LTG: PATIENT WILL DEMONSTRATE REDUCED FALL RISK EVIDENCED BY IMPROVED SELF- SELECTED WALKING SPEED (SSWS CUT SCORE 0.6 TO 0.9 INDICATES MODERATE FALL RISK, 0.6 M/S INDICATES HIGH FALL RISK) FROM 0.5 TO 0.9 WITHIN 9 WEEKS PT LTG: PATIENT WILL DEMONSTRATE REDUCED FALL RISK EVIDENCED BY TUG TEST (CUT SCORE >11 SECONDS INDICATES INCREASED FALL RISK) IMPROVING FROM 36 SECONDS TO 20 SECONDX WITHIN 9 WEEKS. PT LTG: PATIENT WILL DEMONSTRATE IMPROVED FUNCTIONAL STRENGTH EVIDENCED BY FIVE TIMES SIT TO STAND TEST (CUT SCORE >12 SECONDS INDICATES AN INCREASED FALL RISK) IMPROVING FROM 16 SECONDS TO 12 SECONDS WITHIN 9 WEEKS PT LTG: PATIENT WILL DEMONSTRATE IMPROVED ABILITY TO SAFELY NEGOTIATE STAIRS FROM NT TO INDEP USING HANDRAIL WITHIN 9 WEEKS PT STG: PATIENT WILL DEMONSTRATE IMPROVED ABILITY TO PERFORM SIT TO/FROM STAND TRANSFERS TO REDUCE THE RISK OF SKIN BREAKDOWN AND REDUCE FALL RISK FROM SBA TO INDEP WITHIN 9 WEEKS PT LTG: PATIENT WILL NOT EXHIBIT SIGNS AND SYMPTOMS OF ANTICOAGULANT TOXICITY THROUGHOUT EPISODE OF CARE. PT LTG: PATIENT WILL MAINTAIN OXYGEN SATURATION WITHIN PHYSICIAN ORDERED PARAMETERS THROUGHOUT EPISODE OF CARE. PT GOAL: PATIENT WILL DEMONSTRATE OPTIMAL OUTCOMES INCLUDING INCREASED STRENGTH AND MOBILITY WITH NO COMPLICATIONS FOLLOWING FEMUR FRACTURE/ORIF BY END OF EPISODE. PT LTG: PATIENT/CAREGIVER WILL DEMONSTRATE ADHERENCE TO FALL REDUCTION SELF-MANAGEMENT AND REDUCING FALL RISK FACTORS TO MINIMIZE FALL RISK BY END OF EPISODE PT GOAL: PATIENT WILL DEMONSTRATE UNDERSTANDING OF PAIN MANAGEMENT TECHNIQUES EVIDENCED BY REDUCED PAIN Encounters Start Date/Time End Date/Time Encounter Type Admission Type Attending [facility] Care Department Encounter ID Discharge Date Discharge Status Discharge Condition Discharge Reason Percent Goals Met [id number] 00:00:00 2025-09-14 00:00:00 Outpatient [facility] [id number]
--- OUTSIDE RECORDS SUMMARY | 2025-09-13 19:00 | XMS_ITS | Clinical Summary ---
Author Organization Unknown Care Team Providers Care Edge Bonder Name Role Phone EMMETT DAMON, AVNI Unavailable Unavailallen FINLEY RN, FLORA Unavailable Unavailab simon CREWS PT, GELA Unavailable Unavailallen [facility] DIRECTOR, CHI Unavailable Unavailable READING OT, NIKOLAS Unavailable Unavailable PENDJENN POLICE DISTRICT SWITCHBOARD OPERATOR, MAMTA Unavailable Unavailable Payers Payer Name Policy Type Policy Number Effective Date Expira tion Date MEDICARE.NGS.PDGM [id number] Problems Condition Name Condition Details Condition Category [...] SCOLIOSIS, THORACIC REGION Active 07-17 00:00: 00 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 Active 07-17 00:00: [...] tablet,wyatt yed release 07-10 00:00: 00 Yes [id number] GERD 1 tablet EVERY 1 tablet EVERY (route: oral) Med Classific ation: Gastroint estinal Therapy Agents amlodipine 5 mg tablet 07-17 00:00: 00 Yes [id number] BLOOD PRESSURE 1 tablet DAILY 1 tablet DAILY (route: oral) Med Classific ation: Cardiovas cular Therapy Agents iron, carbonyl 45 mg tablet 07-17 00:00: 00 07-18 15:13 :05.1 83 No [id number] IRON 1 tablet DAILY 1 tablet DAILY (route: oral) Med Classific ation: Electroly te Balance-N utritiona l Products metoprolol tartrate 25 mg tablet 07-17 00:00: 00 07-18 15:11 :46.3 07 No [id number] HEART RATE 1 tablet 2 TIMES DAILY 1 tablet 2 TIMES DAILY (route: oral) Med Classific ation: Cardiovas cular Therapy Agents Vitamin D3 25 mcg (1,000 unit) capsule 07-17 00:00: 00 Yes [id number] VITAMIN 1 capsule DAILY 1 capsule DAILY (route: oral) Med Classific ation: Electroly te Balance-N utritiona l Products aspirin 325 mg tablet 07-18 00:00: 00 08-29 23:59 :00 No [id number] blood thinner 1 tablet 2 TIMES DAILY 1 tablet 2 TIMES DAILY (route: oral) Med Classific ation: Analgesic , Anti-infl ammatory or Antipyret ic metoprolol succinate ER 25 mg tablet,exte nded release 24 hr 07-18 00:00: 00 Yes [id number] blood pressure 1 tablet DAILY 1 tablet DAILY (route: oral) Med Classific ation: Cardiovas cular Therapy Agents FeroSul 325 mg (65 mg iron) tablet 07-18 00:00: 00 Yes [id number] supplement 1 tablet DAILY 1 tablet DAILY [...] TION MANAGEMENT; RN TO ASSESS AND OBSERVE, POLICE DISTRICT SWITCHBOARD OPERATOR/CONSULTANT LUXURY AND AUTO. VICE PRESIDENT JAGUAR BRAND (EX ) TO OBSERVE FALL RISK FACTORS AND EDUCATE PATIENT/CAREGIVER ON STRATEGIES TO MINIMIZE THE RISK OF FALLING. [code = FALL REDUCTION MANAGEMENT; RN TO ASSESS AND OBSERVE, POLICE DISTRICT SWITCHBOARD OPERATOR/CONSULTANT LUXURY AND AUTO. VICE PRESIDENT JAGUAR BRAND (EX ) TO OBSERVE FALL RISK FACTORS AND EDUCATE PATIENT/CAREGIVER ON STRATEGIES TO MINIMIZE THE RISK OF FALLING.] Future Scheduled Test RN TO OBSE RVE, ASSESS, EVALUATE, AND DEVELOP AN INDIVIDUALIZED PLAN OF CARE. AGENCY MAY ACCEPT ORDERS FROM CONSULTING PHYSICIANS. RN TO OBSERVE AND ASSESS, POLICE DISTRICT SWITCHBOARD OPERATOR/CONSULTANT LUXURY AND AUTO. VICE PRESIDENT JAGUAR BRAND (EX ) TO OBSERVE FOR RISK FOR FALLS AND INSTRUCT IN FALL PREVENTION, HOME SAFETY, MEDICATION MANAGEMENT, INFECTION PREVENTION, AND NUTRITION MANAGEMENT. RN/POLICE DISTRICT SWITCHBOARD OPERATOR/CONSULTANT LUXURY AND AUTO. VICE PRESIDENT JAGUAR BRAND (EX ) NURSE MAY PERFORM O2 SATURATION LEVEL ON ADMISSION AND PRN FOR RN TO ASSESS/POLICE DISTRICT SWITCHBOARD OPERATOR TO OBSERVE PATIENT, WITH NOTIFICATION TO THE PHYSICIAN IF SATURATION IS 90% IN THE ABSENCE OF MORE SPECIFIC PARAMETERS FROM THE PHYSICIAN. AGENCY MAY PERFORM A RESUMPTION OF CARE VISIT FOLLOWING ANY HOSPITAL ADMISSION. RN/POLICE DISTRICT SWITCHBOARD OPERATOR/CONSULTANT LUXURY AND AUTO. VICE PRESIDENT JAGUAR BRAND (EX ) TO MONITOR CO-MORBID CONDITIONS LISTED ON THE PLAN OF CARE AND ANY NEW CONDITIONS THAT PRESENT THEMSELVES DURING THIS EPISODE TO IDENTIFY CHANGES AND INTERVENE TO MINIMIZE COMPLICATIONS. [code = RN TO OBSERVE, ASSESS, EVALUATE, AND DEVELOP AN INDIVIDUALIZED PLAN OF CARE. AGENCY MAY ACCEPT ORDERS FROM CONSULTING PHYSICIANS. RN TO OBSERVE AND ASSESS, POLICE DISTRICT SWITCHBOARD OPERATOR/CONSULTANT LUXURY AND AUTO. VICE PRESIDENT JAGUAR BRAND (EX ) TO OBSERVE FOR RISK FOR FALLS AND INSTRUCT IN FALL PREVENTION, HOME SAFETY, MEDICATION MANAGEMENT, INFECTION PREVENTION, AND NUTRITION MANAGEMENT. RN/POLICE DISTRICT SWITCHBOARD OPERATOR/CONSULTANT LUXURY AND AUTO. VICE PRESIDENT JAGUAR BRAND (EX ) NURSE MAY PERFORM O2 SATURATION LEVEL ON ADMISSION AND PRN FOR RN TO ASSESS/POLICE DISTRICT SWITCHBOARD OPERATOR TO OBSERVE PATIENT, WITH NOTIFICATION TO THE PHYSICIAN IF SATURATION IS 90% IN THE ABSENCE OF MORE SPECIFIC PARAMETERS FROM THE PHYSICIAN. AGENCY MAY PERFORM A RESUMPTION OF CARE VISIT FOLLOWING ANY HOSPITAL ADMISSION. RN/POLICE DISTRICT SWITCHBOARD OPERATOR/CONSULTANT LUXURY AND AUTO. VICE PRESIDENT JAGUAR BRAND (EX ) TO MONITOR CO-MORBID CONDITIONS LISTED ON THE PLAN OF CARE AND ANY NEW CONDITIONS THAT PRESENT THEMSELVES DURING THIS EPISODE TO IDENTIFY CHANGES AND INTERVENE TO MINIMIZE COMPLICATIONS.] Future Scheduled Test PAIN MANAG EMENT; RN TO ASSESS AND TEACH, CONSULTANT LUXURY AND AUTO. VICE PRESIDENT JAGUAR BRAND (EX )/POLICE DISTRICT SWITCHBOARD OPERATOR TO OBSERVE AND TEACH AND PROVIDE EDUCATION ON PAIN MANAGEMENT TECHNIQUES. [code = PAIN MANAGEMENT; RN TO ASSESS AND TEACH, CONSULTANT LUXURY AND AUTO. VICE PRESIDENT JAGUAR BRAND (EX )/POLICE DISTRICT SWITCHBOARD OPERATOR TO OBSERVE AND TEACH AND PROVIDE EDUCATION ON PAIN MANAGEMENT TECHNIQUES.] Future Scheduled Test RISK FOR H OSPITALIZATION; RN TO ASSESS/TEACH, CONSULTANT LUXURY AND AUTO. VICE PRESIDENT JAGUAR BRAND (EX )/POLICE DISTRICT SWITCHBOARD OPERATOR TO OBSERVE/TEACH PATIENT/CAREGIVER ON RISK FOR HOSPITALIZATION/EMERGENCY ROOM VISITS, TEACH SIGNS AND SYMPTOMS THAT PUT PATIENT AT RISK, WHEN TO NOTIFY NURSE/PHYSICIAN OF COMPLICATIONS/DECLINE, AND WHEN TO CALL 911. [code = RISK FOR HOSPITALIZATION; RN TO ASSESS/TEACH, CONSULTANT LUXURY AND AUTO. VICE PRESIDENT JAGUAR BRAND (EX )/POLICE DISTRICT SWITCHBOARD OPERATOR TO OBSERVE/TEACH PATIENT/CAREGIVER ON RISK FOR HOSPITALIZATION/EMERGENCY ROOM VISITS, TEACH SIGNS AND SYMPTOMS THAT PUT PATIENT AT RISK, WHEN TO NOTIFY NURSE/PHYSICIAN OF COMPLICATIONS/DECLINE, AND WHEN TO CALL 911.] Future Scheduled Test CARDIOVASC ULAR SYSTEM; RN TO ASSESS/TEACH, POLICE DISTRICT SWITCHBOARD OPERATOR/CONSULTANT LUXURY AND AUTO. VICE PRESIDENT JAGUAR BRAND (EX ) TO OBSERVE/TEACH RELATED TO ALTERED CARDIOVASCULAR STATUS TO MINIMIZE COMPLICATIONS AND REDUCE HOSPITALIZATION. [code = CARDIOVASCULAR SYSTEM; RN TO ASSESS/TEACH, POLICE DISTRICT SWITCHBOARD OPERATOR/CONSULTANT LUXURY AND AUTO. VICE PRESIDENT JAGUAR BRAND (EX ) TO OBSERVE/TEACH RELATED TO ALTERED CARDIOVASCULAR STATUS TO MINIMIZE COMPLICATIONS AND REDUCE HOSPITALIZATION.] Future Scheduled Test HYPERTENSI ON MANAGEMENT; RN TO ASSESS AND TEACH, POLICE DISTRICT SWITCHBOARD OPERATOR/CONSULTANT LUXURY AND AUTO. VICE PRESIDENT JAGUAR BRAND (EX ) TO OBSERVE AND TEACH WARNING SIGNS AND SYMPTOMS TO AVOID HOSPITALIZATION. [code = HYPERTENSION MANAGEMENT; RN TO ASSESS AND TEACH, POLICE DISTRICT SWITCHBOARD OPERATOR/CONSULTANT LUXURY AND AUTO. VICE PRESIDENT JAGUAR BRAND (EX ) TO OBSERVE AND TEACH WARNING SIGNS AND SYMPTOMS TO AVOID HOSPITALIZATION.] Future Scheduled Test RN TO ASSE SS/TEACH, POLICE DISTRICT SWITCHBOARD OPERATOR/CONSULTANT LUXURY AND AUTO. VICE PRESIDENT JAGUAR BRAND (EX ) TO OBSERVE/TEACH SURGICAL AFTERCARE MANAGEMENT TO AVOID HOSPITALIZATION. [code = RN TO ASSESS/TEACH, POLICE DISTRICT SWITCHBOARD OPERATOR/CONSULTANT LUXURY AND AUTO. VICE PRESIDENT JAGUAR BRAND (EX ) TO OBSERVE/TEACH SURGICAL AFTERCARE MANAGEMENT TO AVOID HOSPITALIZATION.] Future Scheduled Test AGENCY MAY PERFORM A RESUMPTION OF CARE VISIT FOLLOWING ANY HOSPITAL ADMISSION. OT TO EVALUATE, OBSERVE / ASSESS, AND MONITOR, CLOTH MENDER TO OBSERVE AND MONITOR, PROVIDE SKILLED THERAPEUTIC INTERVENTION, ACTIVITY, EDUCATION, AND TRAINING TO ADDRESS; ACTIVITIES OF DAILY LIVING (OT/CLOTH MENDER) MEAL PREPARATION AND CLEANUP (OT/CLOTH MENDER) HOME ACTIVITY / EXERCISE PROGRAM (OT/CHRISTOPHER) POSTURAL CONTROL/BALANCE (OT/CLOTH MENDER) THERAPEUTIC EXERCISE (OT/CLOTH MENDER) OT/CHRISTOPHER TO MONITOR AND EDUCATE ON OXYGEN SATURATION DURING ADLS/IADLS, NOTIFY PHYSICIAN AND/OR THE RN CLINICAL MACHINE SILVER STRIPPER FOR PHYSICIAN NOTIFICATION AND IF O2 SATS BELOW 90% AFTER 10 MIN OF REST. OT/CLOTH MENDER MAY EDUCATE ON PAIN MANAGEMENT CLINICALLY INDICATED. OT / CLOTH MENDER TO IDENTIFY FALL RISK FACTORS; EDUCATE THE PATIENT/CAREGIVER ON WAYS TO REDUCE FALL RISK FACTORS AND ESTABLISH HOME EXERCISE PROGRAM TO MINIMIZE FALL RISK. MAY TEACH THE PATIENT FLOOR RECOVERY WHEN CLINICALLY APPROPRIATE. OT/CLOTH MENDER TO EDUCATE ON FEMUR FRACTURE /ORIF SELF MANAGEMENT [code = AGENCY MAY PERFORM A RESUMPTION OF CARE VISIT FOLLOWING ANY HOSPITAL ADMISSION. OT TO EVALUATE, OBSERVE / ASSESS, AND MONITOR, CHRISTOPHER TO OBSERVE AND MONITOR, PROVIDE SKILLED THERAPEUTIC INTERVENTION, ACTIVITY, EDUCATION, AND TRAINING TO ADDRESS; ACTIVITIES OF DAILY LIVING (OT/CHRISTOPHER) MEAL PREPARATION AND CLEANUP (OT/CHRISTOPHER) HOME ACTIVITY / EXERCISE PROGRAM (OT/CHRISTOPHER) POSTURAL CONTROL/BALANCE (OT/CLOTH MENDER) THERAPEUTIC EXERCISE (OT/CLOTH MENDER) OT/CHRISTOPHER TO MONITOR AND EDUCATE ON OXYGEN SATURATION DURING ADLS/IADLS, NOTIFY PHYSICIAN AND/OR THE RN CLINICAL MACHINE SILVER STRIPPER FOR PHYSICIAN NOTIFICATION AND IF O2 SATS BELOW 90% AFTER 10 MIN OF REST. OT/CLOTH MENDER MAY EDUCATE ON PAIN MANAGEMENT CLINICALLY INDICATED. OT / CHRISTOPHER TO IDENTIFY FALL RISK FACTORS; EDUCATE THE PATIENT/CAREGIVER ON WAYS TO REDUCE FALL RISK FACTORS AND ESTABLISH HOME EXERCISE PROGRAM TO MINIMIZE FALL RISK. MAY TEACH THE PATIENT FLOOR RECOVERY WHEN CLINICALLY APPROPRIATE. OT/CLOTH MENDER TO EDUCATE ON FEMUR FRACTURE /ORIF SELF MANAGEMENT] Future Scheduled Test AGENCY MAY PERFORM A RESUMPTION OF CARE VISIT FOLLOWING ANY HOSPITAL ADMISSION. PT TO EVALUATE, OBSERVE / ASSESS, AND MONITOR, REGIONAL REHABILITATION DIRECTOR TO OBSERVE AND MONITOR, PROVIDE SKILLED THERAPEUTIC INTERVENTION, ACTIVITY, EDUCATION, AND TRAINING TO ADDRESS; PT/REGIONAL REHABILITATION DIRECTOR TO PROVIDE GAIT TRAINING FOR IMPROVED MOBILITY AND /OR TO NORMALIZE GAIT PATTERN NEUROMUSCULAR RE-EDUCATION / BALANCE / POSTURAL CONTROL (PT) THERAPEUTIC EXERCISES AND ESTABLISHING A HOME EXERCISE PROGRAM (PT/REGIONAL REHABILITATION DIRECTOR) PT/REGIONAL REHABILITATION DIRECTOR TO PROVIDE STAIR TRAINING SIT TO/FROM STAND TRANSFERS (PT/REGIONAL REHABILITATION DIRECTOR) PT TO ASSESS / REGIONAL REHABILITATION DIRECTOR TO MONITOR FOR AND REPORT EARLY SIGNS OF ANTICOAGULANT TOXICITY TO THE PHYSICIAN AND/OR THE RN CLINICAL MACHINE SILVER STRIPPER FOR PHYSICIAN NOTIFICATION AND TO PROVIDE PATIENT/CAREGIVER EDUCATION ON ANTICOAGULANT THERAPY PT / REGIONAL REHABILITATION DIRECTOR TO MONITOR AND EDUCATE ON OXYGEN SATURATION DURING ADLS/IADLS, NOTIFY PHYSICIAN AND/OR THE RN CLINICAL MACHINE SILVER STRIPPER FOR PHYSICIAN NOTIFICATION AND IF O2 SATS BELOW PHYSICIAN ORDERED PARAMETERS AFTER 10 MIN OF REST PT/REGIONAL REHABILITATION DIRECTOR TO EDUCATE ON FEMUR FRACTURE /ORIF SELF-MANAGEMENT. PT/REGIONAL REHABILITATION DIRECTOR TO IDENTIFY FALL RISK FACTORS; EDUCATE THE PATIENT/CAREGIVER ON WAYS TO REDUCE FALL RISK FACTORS AND ESTABLISH HOME EXERCISE PROGRAM TO MINIMIZE FALL RISK. MAY TEACH THE PATIENT FLOOR RECOVERY WHEN CLINICALLY APPROPRIATE PT / REGIONAL REHABILITATION DIRECTOR MAY EDUCATE ON PAIN MANAGEMENT CLINICALLY INDICATED, INCLUDING NON-PHARMACOLOGICAL PAIN REDUCTION TECHNIQUES [code = AGENCY MAY PERFORM A RESUMPTION OF CARE VISIT FOLLOWING ANY HOSPITAL ADMISSION. PT TO EVALUATE, OBSERVE / ASSESS, AND MONITOR, REGIONAL REHABILITATION DIRECTOR TO OBSERVE AND MONITOR, PROVIDE SKILLED THERAPEUTIC INTERVENTION, ACTIVITY, EDUCATION, AND TRAINING TO ADDRESS; PT/REGIONAL REHABILITATION DIRECTOR TO PROVIDE GAIT TRAINING FOR IMPROVED MOBILITY AND /OR TO NORMALIZE GAIT PATTERN NEUROMUSCULAR RE-EDUCATION / BALANCE / POSTURAL CONTROL (PT) THERAPEUTIC EXERCISES AND ESTABLISHING A HOME EXERCISE PROGRAM (PT/REGIONAL REHABILITATION DIRECTOR) PT/REGIONAL REHABILITATION DIRECTOR TO PROVIDE STAIR TRAINING SIT TO/FROM STAND TRANSFERS (PT/REGIONAL REHABILITATION DIRECTOR) PT TO ASSESS / REGIONAL REHABILITATION DIRECTOR TO MONITOR FOR AND REPORT EARLY SIGNS OF ANTICOAGULANT TOXICITY TO THE PHYSICIAN AND/OR THE RN CLINICAL MACHINE SILVER STRIPPER FOR PHYSICIAN NOTIFICATION AND TO PROVIDE PATIENT/CAREGIVER EDUCATION ON ANTICOAGULANT THERAPY PT / REGIONAL REHABILITATION DIRECTOR TO MONITOR AND EDUCATE ON OXYGEN SATURATION DURING ADLS/IADLS, NOTIFY PHYSICIAN AND/OR THE RN CLINICAL MACHINE SILVER STRIPPER FOR PHYSICIAN NOTIFICATION AND IF O2 SATS BELOW PHYSICIAN ORDERED PARAMETERS AFTER 10 MIN OF REST PT/REGIONAL REHABILITATION DIRECTOR TO EDUCATE ON FEMUR FRACTURE /ORIF SELF-MANAGEMENT. PT/REGIONAL REHABILITATION DIRECTOR TO IDENTIFY FALL RISK FACTORS; EDUCATE THE PATIENT/CAREGIVER ON WAYS TO REDUCE FALL RISK FACTORS AND ESTABLISH HOME EXERCISE PROGRAM TO MINIMIZE FALL RISK. MAY TEACH THE PATIENT FLOOR RECOVERY WHEN CLINICALLY APPROPRIATE PT / REGIONAL REHABILITATION DIRECTOR MAY EDUCATE ON PAIN MANAGEMENT CLINICALLY INDICATED, [...] End Date/Time Encounter Type Admission Type Attending [facility] Care Department Encounter ID Discharge Date Discharge Status Discharge Condition Discharge Reason Percent Goals Met 2025 00:00:00 2025-09-14 00:00:00 Outpatient FLORA KAUFFMAN [facility] [id number]
== END 2025-09-01 14:36 | disposition home or self-care (01) ==
LOC: HO.HOSX 14:35
PROVIDERS: Visit Provider Physician Assistant
DX: S72.142D Displaced intertrochanteric fracture of left femur, subsequent encounter for closed fracture with routine healing (principal); X58.XXXD Exposure to other specified factors, subsequent encounter; R74.8 Abnormal levels of other serum enzymes
CPT/HCPCS: 36415; 73552; 80076; 99212